=== PATIENT | male | born 1960 | race African-American/Black ===

== ENCOUNTER 2020-08-06 16:08 | Outpatient (REF) | payer OTHER, SELFPAY ==
[2020-08-06 17:37] LABS: Glucose Urine UA NEG (NEG); Leukocyte Esterase Urine NEG (NEG); Nitrite Urine NEG (NEG); PH 5.5 (5.0-8.0); Specific Gravity - Urine 1.015 (1.005-1.025); Urine Blood NEG (NEG); Urine Ketones NEG (NEG); Urine Protein NEG (NEG-TRACE)
[2020-08-06 17:41] LABS: Appearance Urine CLEAR; Color Urine YELLOW
[2020-08-06 17:45] LABS: Prostate Specific Antigen Scr 0.86 ng/mL (<0.05-4.0)
== END 2020-08-06 16:09 | disposition home or self-care (01) ==
LOC: HO.LAB 16:08
PROVIDERS: PCP Internal Medicine; Visit Provider Internal Medicine
DX: E78.5 Hyperlipidemia, unspecified (principal); R35.1 Nocturia
CPT/HCPCS: 81003; 84153

== ENCOUNTER 2021-01-21 17:10 | Outpatient (REF) | payer OTHER, SELFPAY ==
--- NOTE | ~2021-01-21 | XR_ITS ---
EXAMINATION: XR RIBS, RIGHT CLINICAL INFORMATION: Chest pain COMPARISON: None TECHNIQUE: Frontal view the chest and 3 oblique views of the right ribs were obtained. FINDINGS: Lungs are clear. No consolidation, pneumothorax, or pleural effusion. The cardiomediastinal silhouette and pulmonary vasculature are normal. Osseous structures are unremarkable. Ribs are intact. No displaced rib fractures are identified. XR/XR ribs RT min 3V w CXR1V IMPRESSION: Unremarkable examination.
== END 2021-01-21 17:11 | disposition home or self-care (01) ==
LOC: HO.HMGCX 17:10
PROVIDERS: PCP Internal Medicine; Visit Provider Nurse Practitioner Family
DX: R07.89 Other chest pain (principal)
CPT/HCPCS: 71101

== ENCOUNTER 2021-05-17 08:21 | Outpatient (REF) | payer OTHER, SELFPAY ==
[2021-05-17 09:31] LABS: MANUAL DIFF FLAG NO
[2021-05-17 09:52] LABS: Basophils Percent Auto 0.3 % (0-2); Eosinophils Absolute Auto 0.1 X10*3/uL (0.0-0.4); Eosinophils Percent Auto 2.4 % (0-4); Hematocrit 45.3 % (42-52); Imm Gran Abs Auto 0.01 X10*3/uL (0.00-0.03); Imm Gran Pct Auto 0.3 % (0.0-0.4); Lymphocytes Absolute Auto 1.8 X10*3/uL (1.2-4.9); Lymphocytes Percent Auto 47.9 % (20-40); Mean Corpuscular HGB Conc 33.1 g/dl (31.0-36.0); Mean Corpuscular Hemoglobin 29.4 pg (27.0-33.0); Mean Corpuscular Volume 88.6 fL (80-98); Mean Platelet Volume 12.5 fL (9.4-12.4); Monocytes Absolute Auto 0.4 X10*3/uL (0.1-1.2); Monocytes Percent Auto 10.2 % (2-11); Neutrophils Absolute Auto 1.5 X10*3/uL (2.0-8.3); Neutrophils Percent Auto 38.9 % (45-73); Platelet Count 133 X10*3/uL (160-400); Red Blood Count 5.11 X10*6/uL (4.60-5.80); Red Cell Distribution Width 13.9 % (11.0-16.0); White Blood Count 3.7 X10*3/uL (4.8-10.8)
[2021-05-17 10:15] LABS: Alanine Aminotransferase 28 U/L (0-40); Albumin Level 4.2 g/dL (3.5-5.0); Alkaline Phosphatase 58 U/L (39-117); Anion Gap 11 (12-20); Aspartate Amino Transferase 24 U/L (5-37); Bilirubin Total 0.6 mg/dL (0.0-1.0); Blood Urea Nitrogen 9 mg/dL (9-16); Calcium 9.6 mg/dL (8.4-10.2); Carbon Dioxide 28 mmol/L (22-29); Chloride 108 mmol/L (96-108); Cholesterol 194 mg/dL; Estimated Glomerular Filt Rate > 60; Glucose Fasting 97 mg/dL (60-99); HDL Cholesterol 37 mg/dL; LDL Cholesterol Calculated 109 mg/dl; Potassium 4.1 mmol/L (3.3-5.1); Sodium 143 mmol/L (135-145); Triglycerides 244 mg/dL
[2021-05-17 10:21] LABS: Thyroid Stimulating Hormone 1.26 uIU/mL (0.32-4.0)
== END 2021-05-17 08:22 | disposition home or self-care (01) ==
LOC: HO.LAB 08:21
PROVIDERS: PCP Internal Medicine; Visit Provider Internal Medicine
DX: Z00.00 Encounter for general adult medical examination without abnormal findings (principal); E03.9 Hypothyroidism, unspecified; E11.9 Type 2 diabetes mellitus without complications
CPT/HCPCS: 36415; 80053; 80061; 84443; 85025

== ENCOUNTER → 2021-06-24 13:24 | Outpatient (BNVA) | payer OTHER, SELFPAY | PROVIDERS: Referring Provider Internal Medicine; Visit Provider Nurse Practitioner Family ==

== ENCOUNTER 2021-08-06 08:46 | Day surgery (SDC) | payer OTHER, SELFPAY ==
[2021-07-29 10:26] VITALS: BMI 29.7
--- NOTE | 2021-08-05 10:20 | P.CONAN_ITS ---
Documented by User: Siena Maldonado NP 08/05/21 10:23 HPI - Anesthesia Eval Consult details Narrative: 61yo M for Colonoscopy PMFSH Active Problems Active Problems: All Active Problems (Updated 07/29/21 @ 10:26 by Rachel Reed RN) Nocturia (Acute) Chest wall pain (Acute) Physical exam (Acute) Back pain (Acute) Hypertension (Acute) Past Medical History Medical History (Updated 08/05/21 @ 13:15 by Guido Masterson MD) Back pain COVID-19 vaccine series completed Hypertension Family History Family History Father Prostate cancer Mother Diabetes Family/Other Hypertension Diabetes Son No problems noted. Daughter No problems noted. Sister No problems noted. Brother No problems noted. Surgical History Surgical History H/O colonoscopy History of hemorrhoidectomy Social History Social History Housing: House Are you a primary dog daycare provider to a significant other at home: No Do you presently have visiting nurse or other home services: No Alcohol intake: never Patient Tobacco Use Status: Former Tobacco user Quit Date: 1990 Tobacco use type: Cigarette e-Cigarette/Vaping Use: Never Used Second Hand Smoke Exposure: No Use of substances other than those prescribed or required for medical reasons: No Have you been hit, kicked, punched, or otherwise hurt by someone within the past year? If so, by whom?: No Are you DNR?: No Advance Directives: No Advance Directives Information Provided: Yes (informational brochure mailed) Advance Directives on File: No Recently lost weight without trying: No Eating poorly because of decreased appetite: No Nutrition Risks: No Nutritional Risk Poor oral hygiene: No (upper & lower partials) service: Yes Current occupational status: employed Cognitive needs: No Hearing needs: No Vision needs: No Meds Allergies Allergy/AdvReac Type Severity Reaction Status Date / Time No Known Allergies Allergy Verified 08/06/21 08:54 Home Medications Medication Instructions Recorded Confirmed Last Taken Type metronidazole 1 % topical gel 1 applic TOPICAL DAILY 07/04/20 08/05/21 Unknown History (Metrogel) famotidine 40 mg tablet 40 mg PO DAILY 08/05/20 08/05/21 Unknown History Exam Exam Date and Time: August 05, 2021 1020 Height,Weight and Vital Signs: Height 6 ft 1 in Weight 102.058 kg Pertinent Lab Results Pertinent Lab Results: Laboratory Tests 05/17/21 05/17/21 08:35 08:35 WBC 3.7 L Hgb 15.0 Hct 45.3 Plt Count 133 L Sodium 143 Potassium 4.1 Chloride 108 Carbon Dioxide 28 BUN 9 Creatinine 1.06 Assessment and Plan Assessment Anesthesia Assessment: Chart Reviewed Documented by User: Anabella Vasquez MD 08/06/21 08:56 PMFSH Past Medical History Medical History (Updated 08/05/21 @ 13:15 by Guido Masterson MD) Back pain COVID-19 vaccine series completed Hypertension Family History Family History Father Prostate cancer Mother Diabetes Family/Other Hypertension Diabetes Son No problems noted. Daughter No problems noted. Sister No problems noted. Brother No problems noted. Family history of problems with anesthesia: No Surgical History Surgical History H/O colonoscopy History of hemorrhoidectomy History of Problems with Anesthesia: No Social History Social History Housing: House Are you a primary dog daycare provider to a significant other at home: No Do you presently have visiting nurse or other home services: No Alcohol intake: never Patient Tobacco Use Status: Former Tobacco user Quit Date: 1990 Tobacco use type: Cigarette e-Cigarette/Vaping Use: Never Used Second Hand Smoke Exposure: No Use of substances other than those prescribed or required for medical reasons: No Have you been hit, kicked, punched, or otherwise hurt by someone within the past year? If so, by whom?: No Are you DNR?: No Advance Directives: No Advance Directives Information Provided: Yes (informational brochure mailed) Advance Directives on File: No Recently lost weight without trying: No Eating poorly because of decreased appetite: No Nutrition Risks: No Nutritional Risk Poor oral hygiene: No (upper & lower partials) service: Yes Current occupational status: employed Cognitive needs: No Hearing needs: No Vision needs: No Meds Allergies Allergy/AdvReac Type Severity Reaction Status Date / Time No Known Allergies Allergy Verified 08/06/21 08:54 Home Medications Medication Instructions Recorded Confirmed Last Taken Type metronidazole 1 % topical gel 1 applic TOPICAL DAILY 07/04/20 08/05/21 Unknown History (Metrogel) famotidine 40 mg tablet 40 mg PO DAILY 08/05/20 08/05/21 Unknown History Exam Airway Mallampati Class: II TM Dist: >3cm Neck ROM: Full Heart: rrr Lungs: cta Assessment and Plan Assessment Anesthesia Assessment: Anesthesia Plan Discussed and Chart Reviewed Final Anesthetic Review Family History of Problems with Anesthesia: No History of Problems with Anesthesia: No NPO: Yes ASA Class: II Final Preanesthetic Review: No Changes in Pt Med Stat, Meds/Allgs Chart Reviewed and Consent Obtained/Reviewed Patient Risk: Intermediate Procedure Risk: Intermediate Anesthetic Plan Anesthetic Plan: MAC: Disposition: Standard PACU
[2021-08-06 08:55] VITALS: BP 127/72; PULSE 82; RESP 16; TEMP 36.3; O2SAT 96
[2021-08-06] MEDS: Lactated Ringers 1,000 ML 100 ML IVCONT (09:12)
--- NOTE | 2021-08-06 09:13 | P.HPSUR_ITS ---
Pre-Procedural Eval Section A Date of Service: 08/06/21 Section B Chief Complaint: Screening Relevant Family History (Specify if Yes): No Relevant Social History: None (ex smoker ) Present Medications: see Short Stay Collaborative assessment Medical History: Significant History (Back pain COVID-19 vaccine series completed Hypertension) History of Previous Operations: Relevant previous surgery/procedure and date(s) (hemorrhoidectomy) Allergies: Allergies Allergy/AdvReac Type Severity Reaction Status Date / Time No Known Allergies Allergy Verified 08/06/21 08:54 Review of Systems Sugical H&P ROS: Negative: Constitution, Cardiovascular, Respiratory, Neuro logical, Psychiatric, Hem-Onc, Allergic/Immunologic, Gastrointestinal, Genitourinary, Musculoskeletal, Integumentary, Endocrine and Eyes/Ears/Nose/Throat Exam Surgical H&P Exam: Normal: HEENT, Normal: Heart, Normal: Lungs, Normal: Extremities, Normal: Abdomen, Normal: Skin and Normal: Neurological Plan Diagnosis/Plan: Unchanged I have reviewed the history and physical and performed a pertinent physical examination on my patient. No changes have occurred unless specified.
--- NOTE | 2021-08-06 09:16 | P.BOP_ITS ---
Brief Operative Note Date of Service: 08/06/21 Pre-op diagnosis: colon screening Post-op diagnosis: same Procedure: see op note Surgeon: Pita Cannon MD Anesthesia: MAC Was an Wind Field Manager used for this Procedure?: No Estimated blood loss (mL): 0 Condition: stable Disposition: PACU
--- NOTE | 2021-08-06 09:17 | W.PM.OPN ---
Operative Note Operative Note Date of Service: 08/06/21 Narrative: Operative Information Procedure Description: Colonoscopy COLONOSCOPY Instrument: Olympus variable stiffness adult scope 190L Colonoscopy Monitoring: Vital signs and clinical assessment, continuous EKG monitoring, Pulse oximetry, Carbon Dioxide monitoring and blood pressure monitoring were done throughout the procedure. Colon withdrawal time was 14 minutes. Procedure: The patient was placed in the left lateral decubitis position and pre-procedure medications were administered. After a digital rectal examination of the ano-rectum, the video colonoscope was inserted into the rectum and advanced through the colon to the cecum/TI. The colonoscope was slowly withdrawn in a retrograde panoramic fashion and the colon mucosa was carefully examined including a retroflexed view of the rectum. Findings and interventions are described below. Procedure Difficulty:moderate Findings: Terminal Ileum-unable to intubate deeply due to looping, superficially appeared normal Severe spain diverticulosis with tics of varying sizes thru out the colon, worse on the left Cecum:normal Ascending Colon: normal Transverse Colon -normal Descending Colon:normal Sigmoid Colon: normal Rectum: Retroflexion with moderate large internal hemorrhoids, grade II Anorectum - internal hemorrhoids seen at anal verge Colon preparation: Ellsworth Bowel Preparation Scale Right colon; 2 Transverse colon: 2 Left colon; 2 (0 = Unprepared colon segment with mucosa not seen due to solid stool that cannot be cleared. 1 = Portion of mucosa of the colon segment seen, but other areas of the colon segment not well seen due to staining, residual stool and/or opaque liquid. 2 = Minor amount of residual staining, small fragments of stool and/or opaque liquid, but mucosa of colon segment seen well. 3 = Entire mucosa of colon segment seen well with no residual staining, small fragments of stool or opaque liquid) Impression and Post Procedure Diagnosis: internal hemorrhoids diverticular disease Plan: High fiber diet leaflet Avoid straining at stool, epsom salts and sitz bath, anusol supps or cream Repeat Colonoscopy in 10 years or earlier if clinically indicated or any concerns Above findings were reviewed with the patient and relevant handouts were provided if indicated.
[2021-08-06 09:57] VITALS: BP 84/56; PULSE 72; RESP 16; TEMP 36.6; O2SAT 97
[2021-08-06 10:12] VITALS: BP 121/73; PULSE 69; RESP 17; TEMP 36.6; O2SAT 97
== END 2021-08-06 10:55 | disposition home or self-care (01) ==
PROVIDERS: PCP Internal Medicine; Visit Provider Internal Medicine Gastroenterology
PROC: 0DJD8ZZ Inspection of Lower Intestinal Tract, Via Natural or Artificial Opening Endoscopic (ICD-10-PCS; CPT 45378; principal; 2021-08-06 10:00)
DX: Z12.11 Encounter for screening for malignant neoplasm of colon (principal); K57.30 Diverticulosis of large intestine without perforation or abscess without bleeding; K64.1 Second degree hemorrhoids; I10 Essential (primary) hypertension; M54.9 Dorsalgia, unspecified; Z79.899 Other long term (current) drug therapy; Z87.891 Personal history of nicotine dependence
CPT/HCPCS: 45378

== ENCOUNTER 2022-03-31 11:22 | Outpatient (REF) | payer OTHER, SELFPAY ==
--- NOTE | ~2022-03-31 | XR_ITS ---
EXAMINATION: XR KNEE, RIGHT CLINICAL INFORMATION: Knee pain COMPARISON: 06/08/2016 TECHNIQUE: Two views of the right knee. FINDINGS: No fracture or subluxation. Mild medial compartment joint space narrowing. Mild narrowing at the patellofemoral compartment. Enthesophyte formation of the patella. Small marginal osteophytes at the medial and patellofemoral compartments. There is a small suprapatellar joint effusion. Small osseous excrescence at the proximal fibular metaphysis is unchanged from previous. XR/XR knee RT 2V IMPRESSION: Mild degenerative changes of the knee greatest at the medial and patellofemoral compartments. Small joint effusion.
== END 2022-03-31 11:23 | disposition home or self-care (01) ==
LOC: HO.XRAY 11:22
PROVIDERS: PCP Internal Medicine; Visit Provider Internal Medicine
DX: M25.561 Pain in right knee (principal)
CPT/HCPCS: 73560

== ENCOUNTER 2022-04-24 09:15 | Outpatient (REF) | payer OTHER, SELFPAY ==
--- NOTE | ~2022-04-24 | XR_ITS ---
EXAMINATION: XR KNEE-BILATERAL CLINICAL INFORMATION: Pain in unspecified knee. COMPARISON: Radiographs of the right knee done on 03/31/2022. TECHNIQUE: Upright frontal views of both knees and lateral and patellofemoral views of the right knee were obtained. FINDINGS: Left knee: The bony alignments are intact. Decreased joint space, subchondral sclerosis and osteophyte formations, consistent with mild femoral tibial osteoarthrosis is present. Right knee: The bony alignments are intact. The cortices are intact. Decreased joint space, subchondral sclerosis, mild osteophyte formation, consistent with mild tricompartmental osteoarthrosis is present. Enthesopathy at the insertional site of the quadriceps tendon to the superior pole of the patella. XR/XR knee standing BI IMPRESSION: 1. Frontal view only radiograph of the left knee shows mild osteoarthrosis at the femoral tibial joints. 2. 3 views of the right knee shows mild tricompartmental osteoarthrosis and enthesopathy at the insertional site of the quadriceps tendon to the superior pole of the patella.
--- NOTE | ~2022-04-24 | XR_ITS ---
EXAMINATION: XR KNEE-BILATERAL CLINICAL INFORMATION: Pain in unspecified knee. COMPARISON: Radiographs of the right knee done on 03/31/2022. TECHNIQUE: Upright frontal views of both knees and lateral and patellofemoral views of the right knee were obtained. FINDINGS: Left knee: The bony alignments are intact. Decreased joint space, subchondral sclerosis and osteophyte formations, consistent with mild femoral tibial osteoarthrosis is present. Right knee: The bony alignments are intact. The cortices are intact. Decreased joint space, subchondral sclerosis, mild osteophyte formation, consistent with mild tricompartmental osteoarthrosis is present. Enthesopathy at the insertional site of the quadriceps tendon to the superior pole of the patella. XR/XR knee RT 2V IMPRESSION: 1. Frontal view only radiograph of the left knee shows mild osteoarthrosis at the femoral tibial joints. 2. 3 views of the right knee shows mild tricompartmental osteoarthrosis and enthesopathy at the insertional site of the quadriceps tendon to the superior pole of the patella.
== END 2022-04-24 09:16 | disposition home or self-care (01) ==
LOC: HO.HOSX 09:15
PROVIDERS: Visit Provider Orthopaedic Surgery
DX: M17.11 Unilateral primary osteoarthritis, right knee (principal)
CPT/HCPCS: 20610; 73560; 73565; J1100

== ENCOUNTER 2022-05-09 07:47 | Outpatient (REF) | payer OTHER, SELFPAY ==
[2022-05-09 08:28] LABS: MANUAL DIFF FLAG NO
[2022-05-09 09:22] LABS: Basophils Percent Auto 0.7 % (0-2); Eosinophils Absolute Auto 0.1 X10*3/uL (0.0-0.4); Eosinophils Percent Auto 2.2 % (0-4); Hematocrit 45.2 % (42.0-52.0); Hemoglobin 14.4 g/dl (14.0-18.0); Imm Gran Abs Auto 0.01 X10*3/uL (0.00-0.03); Imm Gran Pct Auto 0.2 % (0.0-0.4); Lymphocytes Absolute Auto 1.8 X10*3/uL (1.2-4.9); Lymphocytes Percent Auto 42.7 % (20-40); Mean Corpuscular HGB Conc 31.9 g/dl (31.0-36.0); Mean Corpuscular Hemoglobin 27.9 pg (27.0-33.0); Mean Corpuscular Volume 87.4 fL (80.0-98.0); Mean Platelet Volume 13.6 fL (9.4-12.4); Monocytes Absolute Auto 0.5 X10*3/uL (0.1-1.2); Monocytes Percent Auto 11.4 % (2-11); Neutrophils Absolute Auto 1.8 x10*3/uL (2.0-8.3); Neutrophils Percent Auto 42.8 % (45-73); Platelet Count 100 X10*3/uL (160-400); Red Blood Count 5.17 X10*6/uL (4.60-5.80); Red Cell Distribution Width 14.5 % (11.0-16.0); White Blood Count 4.1 X10*3/uL (4.8-10.8)
[2022-05-09 10:02] LABS: Alanine Aminotransferase 30 U/L (0-40); Albumin Level 4.1 g/dL (3.5-5.0); Alkaline Phosphatase 58 U/L (39-117); Anion Gap 13 (12-20); Aspartate Amino Transferase 24 U/L (5-37); Blood Urea Nitrogen 12 mg/dL (9-16); Carbon Dioxide 25 mmol/L (22-29); Chloride 108 mmol/L (96-108); Cholesterol 207 mg/dL; Estimated Glomerular Filt Rate > 60; Glucose Fasting 93 mg/dL (60-99); HDL Cholesterol 41 mg/dL; LDL Cholesterol Calculated 128 mg/dl; Potassium 4.1 mmol/L (3.3-5.1); Sodium 142 mmol/L (135-145); Total Protein 7.1 g/dL (6.5-8.0); Triglycerides 191 mg/dL
[2022-05-09 11:00] LABS: Prostate Specific Antigen Scr 1.05 ng/mL (<0.05-4.0)
== END 2022-05-09 07:48 | disposition home or self-care (01) ==
LOC: HO.LAB 07:47
PROVIDERS: PCP Internal Medicine; Visit Provider Internal Medicine
DX: Z00.00 Encounter for general adult medical examination without abnormal findings (principal); E78.5 Hyperlipidemia, unspecified; I10 Essential (primary) hypertension; Z13.0 Encounter for screening for diseases of the blood and blood-forming organs and certain disorders involving the immune mechanism
CPT/HCPCS: 36415; 80053; 80061; 84153; 85025

== ENCOUNTER 2023-01-23 07:14 | Outpatient (REF) | payer OTHER, SELFPAY ==
[2023-01-23 07:28] LABS: MANUAL DIFF FLAG NO
[2023-01-23 08:04] LABS: Basophils Percent Auto 0.6 % (0-2); Eosinophils Absolute Auto 0.1 X10*3/uL (0.0-0.4); Eosinophils Percent Auto 2.3 % (0-4); Hematocrit 44.3 % (42.0-52.0); Hemoglobin 14.4 g/dl (14.0-18.0); Lymphocytes Absolute Auto 1.6 X10*3/uL (1.2-4.9); Lymphocytes Percent Auto 46.3 % (20-40); Mean Corpuscular HGB Conc 32.5 g/dl (31.0-36.0); Mean Corpuscular Hemoglobin 28.4 pg (27.0-33.0); Mean Corpuscular Volume 87.4 fL (80.0-98.0); Mean Platelet Volume 13.1 fL (9.4-12.4); Monocytes Absolute Auto 0.4 X10*3/uL (0.1-1.2); Monocytes Percent Auto 11.6 % (2-11); Neutrophils Absolute Auto 1.4 x10*3/uL (2.0-8.3); Neutrophils Percent Auto 39.2 % (45-73); Platelet Count 114 X10*3/uL (160-400); Red Blood Count 5.07 X10*6/uL (4.60-5.80); Red Cell Distribution Width 14.7 % (11.0-16.0); White Blood Count 3.5 X10*3/uL (4.8-10.8)
[2023-01-23 08:53] LABS: Alanine Aminotransferase 27 U/L (0-40); Albumin Level 4.2 g/dL (3.5-5.0); Alkaline Phosphatase 60 U/L (39-117); Anion Gap 10 (12-20); Aspartate Amino Transferase 27 U/L (5-37); Bilirubin Total 0.9 mg/dL (0.0-1.0); Blood Urea Nitrogen 11 mg/dL (9-16); Calcium 9.2 mg/dL (8.4-10.2); Carbon Dioxide 28 mmol/L (22-29); Chloride 109 mmol/L (96-108); Cholesterol 188 mg/dL; Estimated Glomerular Filt Rate > 60; Glucose Fasting 96 mg/dL (60-99); HDL Cholesterol 35 mg/dL; LDL Cholesterol Calculated 113 mg/dl; Potassium 4.2 mmol/L (3.3-5.1); Sodium 143 mmol/L (135-145); Triglycerides 201 mg/dL
== END 2023-01-23 07:15 | disposition home or self-care (01) ==
LOC: HO.LAB 07:14
PROVIDERS: PCP Internal Medicine; Visit Provider Internal Medicine
DX: E78.5 Hyperlipidemia, unspecified (principal); D64.9 Anemia, unspecified; N28.9 Disorder of kidney and ureter, unspecified
CPT/HCPCS: 36415; 80053; 80061; 85025

== ENCOUNTER 2023-04-27 15:49 | Outpatient (REF) | payer OTHER, SELFPAY ==
[2023-04-27 15:57] LABS: MANUAL DIFF FLAG NO
[2023-04-27 16:16] LABS: Basophils Percent Auto 0.6 % (0-2); Hematocrit 44.8 % (42.0-52.0); Hemoglobin 14.5 g/dl (14.0-18.0); Imm Gran Abs Auto 0.01 X10*3/uL (0.00-0.03); Imm Gran Pct Auto 0.2 % (0.0-0.4); Mean Corpuscular HGB Conc 32.4 g/dl (31.0-36.0); PLT CLUMP 1; SCAN SMEAR FLAG 1
[2023-04-27 16:19] LABS: Eosinophils Absolute Auto 0.1 X10*3/uL (0.0-0.4); Eosinophils Percent Auto 1.7 % (0-4); Lymphocytes Absolute Auto 2.5 X10*3/uL (1.2-4.9); Lymphocytes Percent Auto 47.8 % (20-40); Mean Corpuscular Hemoglobin 28.8 pg (27.0-33.0); Mean Corpuscular Volume 88.9 fL (80.0-98.0); Mean Platelet Volume 12.7 fL (9.4-12.4); Monocytes Absolute Auto 0.6 X10*3/uL (0.1-1.2); Monocytes Percent Auto 10.5 % (2-11); Neutrophils Absolute Auto 2.1 x10*3/uL (2.0-8.3); Neutrophils Percent Auto 39.2 % (45-73); Red Blood Count 5.04 X10*6/uL (4.60-5.80)
[2023-04-27 16:32] LABS: PLT ABN DIST 1; White Blood Count 5.3 X10*3/uL (4.8-10.8)
[2023-04-27 16:33] LABS: Platelet Count 130 X10*3/uL (160-400)
[2023-04-27 17:04] LABS: Alanine Aminotransferase 23 U/L (0-40); Albumin Level 4.3 g/dL (3.5-5.0); Alkaline Phosphatase 53 U/L (39-117); Anion Gap 12 (12-20); Aspartate Amino Transferase 33 U/L (5-37); Bilirubin Total 0.5 mg/dL (0.0-1.0); Blood Urea Nitrogen 12 mg/dL (9-16); Calcium 9.6 mg/dL (8.4-10.2); Carbon Dioxide 26 mmol/L (22-29); Chloride 105 mmol/L (96-108); Cholesterol 208 mg/dL (<200); Estimated Glomerular Filt Rate > 60; Glucose Fasting 93 mg/dL (60-99); HDL Cholesterol 36 mg/dL (>40); Sodium 139 mmol/L (135-145); Total Protein 7.5 g/dL (6.5-8.0); Triglycerides 434 mg/dL (<150)
[2023-04-27 17:19] LABS: Thyroid Stimulating Hormone 1.75 uIU/mL (0.32-4.0)
== END 2023-04-27 15:50 | disposition home or self-care (01) ==
LOC: HO.LAB 15:49
PROVIDERS: PCP Internal Medicine; Visit Provider Internal Medicine
DX: E03.9 Hypothyroidism, unspecified (principal); E78.5 Hyperlipidemia, unspecified; D64.9 Anemia, unspecified; N28.9 Disorder of kidney and ureter, unspecified
CPT/HCPCS: 36415; 80053; 80061; 84443; 85025

== ENCOUNTER 2023-05-07 13:35 | Outpatient (AMB) | payer OTHER, SELFPAY ==
[2023-05-07 13:38] VITALS: BP 124/78; PULSE 55; O2SAT 96; BMI 30.9
--- NOTE | 2023-05-07 13:38 | MHC.PC.OV ---
Vital Signs 05/07/23 13:38 Height 6 ft 1 in Weight 234 lb 2 oz BMI 30.9 BP 124/78 Blood Pressure Location Lt brachial Position Sitting Pulse 55 Pulse Source Pulse Oximeter Pulse Oximetry (%) 96 Oxygen Delivery Method Room Air Intake Visit Reasons: PE Bridge Builder Required: No Housekeeping/Laundry: Not Required per policy Accompanied by: Self / Same As Patient Allergies No Known Allergies Allergy (Verified 05/07/23 13:39) Medication List - Last Reconciled 05/11/23 by Guido Masterson MD famotidine 40 mg PO DAILY fluticasone propionate 50 mcg/actuation 1 spray intranasal DAILY lisinopril 10 mg PO DAILY metronidazole 1% (Metrogel) 1 ea topical DAILY oxycodone-acetaminophen 5-325 mg (Percocet) 1 tab PO Q8H PRN 28 days tadalafil (Cialis) 10 mg PO DAILY PRN Tobacco use date assessed: 12/18/22 Dental Screening Dental Screen Date: 05/07/23 Did you have a dental visit in the last 12 months?: Yes Did you have a dental problem in the last 6 months where you did not have access to dental care?: No Was dental information given to patient?: Patient has dentist HPI PE HPI Details HTN chronic back painand ED; doing well PFSH Medical History Back pain COVID-19 vaccine series completed Hypertension Surgical History H/O colonoscopy History of hemorrhoidectomy Family History Father Prostate cancer Mother Diabetes Family/Other Hypertension Diabetes Son No problems noted. Daughter No problems noted. Sister No problems noted. Brother No problems noted. 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 1. Little interest or pleasure in doing things: not at all 2. Feeling down, depressed, or hopeless: not at all 3. Trouble falling or staying asleep, or sleeping too much: not at all 4. Feeling tired or having little energy: not at all 5. Poor appetite or overeating: not at all 6. Feeling bad about yourself - or that you are a failure or have let yourself or your family down: not at all 7. Trouble concentrating on things, such as reading the newspaper or watching television: not at all 8. Moving or speaking so slowly that other people could have noticed. Or the opposite - being so fidgety or restless that you have been moving around a lot more than usual: not at all 9. Thoughts that you would be better off or of hurting yourself in some way: not at all Total score: 0 Depression Screening Interpretation: Negative 01282 - PHQ-9 Billing: Yes Source: Developed by Drs. Martín Jessica, Yolette Gomez, Anthony Diaz and colleagues, with an educational mikayla from [employer] (formerly [employer]). Thrive Questionnaire Date Thrive assessed: 12/18/22 AUDIT C Alcohol Use Questionnaire (AUDIT-C) 1. How often do you have a drink containing alcohol?: Never Total Score: 0 Score Reviewed/Action Taken: Yes KYRA-7 AMB Questionnaire KYRA-7 Date KYRA - 7 assessed: 12/18/22 Source: Developed by Drs. Martín Jessica, Yolette Gomez, Anthony Diaz and colleagues, with an educational mikayla from [employer] (formerly [employer]). Review of Systems Const Denies chills, Denies fatigue, Denies headache(s) and Denies weight loss Eyes Denies change in vision, Denies diplopia and Denies eye pain ENT Denies vertigo, Denies dizziness, Denies headache(s) and Denies nasal discharge Card Denies chest pain, Denies rapid heart rate and Denies dyspnea on exertion Resp Denies chest congestion, Denies cough, Denies pain with cough and Denies dyspnea on exertion GI Denies abdominal pain, Denies hematochezia and Denies change in bowel habits Musc Denies myalgias, Denies arthralgias and Denies joint swelling Skin/Breast Denies lesions and Denies unusual bruising Neuro Denies vertigo, Denies dizziness, Denies headache(s) and Denies focal weakness Endo Denies fatigue Physical exam (Primary Care) Vital Signs: Last Vital Signs Pulse 55 05/07/23 13:38 BP 124/78 05/07/23 13:38 Pulse Ox 96 05/07/23 13:38 Oxygen Delivery Method Room Air 05/07/23 13:38 BMI result Body Mass Index 30.9 Tobacco/Smoking Status: Tobacco use Status Tobacco use date assessed 12/18/22 05/07/23 13:43 Patient Tobacco Use Status Former Tobacco user 05/07/23 13:43 Tobacco use type Cigarette 05/07/23 13:43 e-Cigarette/Vaping Use Never Used 05/07/23 13:43 PHQ-9: PHQ-9 Score PHQ-9: Total score 0 05/07/23 13:43 Depression Screening Interpretation: Negative Thrive Assessment: Date of Thrive Assessment Date Thrive assessed 12/18/22 05/07/23 13:43 Const General: cooperative, healthy appearing and no acute distress Orientation/consciousness: oriented to person, oriented to place and oriented to time HENMT Head: Yes normal to inspection, Yes normocephalic and Yes atraumatic Mouth: Normal oral and palatal mucosa present and tongue normal Throat: Yes posterior oropharynx normal and Yes uvula midline Eyes General: appearance normal, both eyes and all related structures Neck Neck: Yes normal visual inspection, Yes full ROM and Yes no lymphadenopathy Thyroid: Thyroid normal Carotids: normal carotid upstroke Chest Chest palpation & inspection: normal inspection of the chest Resp Effort & Inspection: normal respiratory effort and able to speak in complete sentences Auscultation: clear to auscultation bilaterally Cardio Jugular venous distension: no JVD Palpation: normal PMI Rate: regular rate Rhythm: regular rhythm Heart sounds: S1 normal heart sound present and S2 normal heart sound present GI Inspection: Yes normal to inspection Palpation (GI): Soft to palpation and No hepatosplenomegaly present Auscultation: normal bowel sounds General: Yes no CVA tenderness Back/Spine/Pelvis Back: no CVA tenderness Skin General skin exam: no rashes or lesions noted Neuro General: oriented to person, oriented to place and oriented to time Extrem General: Yes normal to inspection and Yes full ROM Assessment and Plan Assessment & Plan (1) Physical exam: Code(s): Z00.00 - Encounter for general adult medical examination without abnormal findings Plan: labs (2) Back pain: Code(s): M54.9 - Dorsalgia, unspecified Plan: stable; same rx (3) Hypertension: Comment: stable; same rx Code(s): I10 - Essential (primary) hypertension (4) Erectile dysfunction: Code(s): N52.9 - Male erectile dysfunction, unspecified Plan: stable; same rx Coding Level of Care Code Est Pt Prev Care 40-64y(96254) Diagnoses Physical exam Z00.00 Back pain M54.9 Hypertension I10 Erectile dysfunction N52.9
== END 2023-05-07 14:04 | disposition home or self-care (01) ==
PROVIDERS: PCP Internal Medicine; Visit Provider Internal Medicine
DX: Z00.00 Encounter for general adult medical examination without abnormal findings (principal); M54.9 Dorsalgia, unspecified; I10 Essential (primary) hypertension; N52.9 Male erectile dysfunction, unspecified
CPT/HCPCS: 99396

== ENCOUNTER 2023-07-15 11:27 | Outpatient (AMB) | payer OTHER, SELFPAY ==
[2023-07-15 11:29] VITALS: BP 122/70; PULSE 47; O2SAT 97; BMI 30.9
--- NOTE | 2023-07-15 11:29 | MHC.PC.OV ---
Vital Signs 07/15/23 11:29 Height 6 ft 1 in Weight 234 lb BMI 30.9 BP 122/70 Blood Pressure Location Lt brachial Position Sitting Pulse 47 L Pulse Source Pulse Oximeter Pulse Oximetry (%) 97 Oxygen Delivery Method Room Air Intake Visit Reasons: Right elbow Swelling Hide Worker Required: No Broke Worker: Not Required per policy Accompanied by: Self / Same As Patient Allergies No Known Allergies Allergy (Verified 07/15/23 11:29) Medication List - Last Reconciled 07/15/23 by Guido Masterson MD famotidine 40 mg PO DAILY fluticasone propionate 50 mcg/actuation 1 spray intranasal DAILY lisinopril 10 mg PO DAILY metronidazole 1% (Metrogel) 1 ea topical DAILY tadalafil (Cialis) 10 mg PO DAILY PRN Tobacco use date assessed: 12/18/22 Dental Screening Dental Screen Date: 07/15/23 Did you have a dental visit in the last 12 months?: No Did you have a dental problem in the last 6 months where you did not have access to dental care?: No Was dental information given to patient?: Patient has dentist HPI Right elbow Swelling HPI Details successfully tapered off oxycodone; has not taken any for over a month. Pain manageable with NSAIDS PFSH Medical History COVID-19 vaccine series completed Back pain Hypertension Surgical History H/O colonoscopy History of hemorrhoidectomy Family History Father Prostate cancer Mother Diabetes Family/Other Hypertension Diabetes Son No problems noted. Daughter No problems noted. Sister No problems noted. Brother No problems noted. 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 1. Little interest or pleasure in doing things: not at all 2. Feeling down, depressed, or hopeless: not at all 3. Trouble falling or staying asleep, or sleeping too much: not at all 4. Feeling tired or having little energy: not at all 5. Poor appetite or overeating: not at all 6. Feeling bad about yourself - or that you are a failure or have let yourself or your family down: not at all 7. Trouble concentrating on things, such as reading the newspaper or watching television: not at all 8. Moving or speaking so slowly that other people could have noticed. Or the opposite - being so fidgety or restless that you have been moving around a lot more than usual: not at all 9. Thoughts that you would be better off or of hurting yourself in some way: not at all Total score: 0 Depression Screening Interpretation: Negative Depression Screening Done: Yes 28775 - PHQ-9 Billing: Yes Source: Developed by Drs. Martín Jessica, Yolette Gomez, Anthony Diaz and colleagues, with an educational mikayla from [employer]. Thrive Questionnaire Date Thrive assessed: 12/18/22 AUDIT C Alcohol Use Questionnaire (AUDIT-C) 1. How often do you have a drink containing alcohol?: Never Total Score: 0 Score Reviewed/Action Taken: Yes KYRA-7 AMB Questionnaire KYRA-7 Date KYRA - 7 assessed: 12/18/22 Source: Developed by Drs. Martín Jessica, Yolette Gomez, Anthony Diaz and colleagues, with an educational mikayla from [employer]. Review of Systems Const Denies chills, Denies headache(s) and Denies weight loss ENT Denies headache(s) Card Denies chest pain, Denies syncope, Denies irregular heart rhythm and Denies dyspnea Resp Denies chest congestion, Denies cough and Denies dyspnea GI Denies abdominal pain, Denies change in stool character, Denies nausea and Denies vomiting Musc Denies deformity and Denies joint swelling Neuro Denies syncope and Denies headache(s) Physical exam (Primary Care) Vital Signs: Last Vital Signs Pulse 47 L 07/15/23 11:29 BP 122/70 07/15/23 11:29 Pulse Ox 97 07/15/23 11:29 Oxygen Delivery Method Room Air 07/15/23 11:29 BMI result Body Mass Index 30.9 Tobacco/Smoking Status: Tobacco use Status Tobacco use date assessed 12/18/22 07/15/23 11:35 Patient Tobacco Use Status Former Tobacco user 07/15/23 11:35 Tobacco use type Cigarette 07/15/23 11:35 e-Cigarette/Vaping Use Never Used 07/15/23 11:35 PHQ-9: PHQ-9 Score PHQ-9: Total score 0 07/15/23 11:35 Depression Screening Interpretation: Negative Thrive Assessment: Date of Thrive Assessment Date Thrive assessed 12/18/22 07/15/23 11:35 Const General: cooperative, comfortable, no acute distress and alert Neck Neck: Yes no lymphadenopathy Thyroid: Thyroid normal Resp Effort & Inspection: normal respiratory effort Auscultation: clear to auscultation bilaterally Percussion: percussion normal Cardio Jugular venous distension: no JVD Palpation: normal PMI Rate: regular rate Rhythm: regular rhythm Heart sounds: S1 normal heart sound present and S2 normal heart sound present GI Inspection: Yes normal to inspection Palpation (GI): No hepatosplenomegaly present Skin General skin exam: no rashes or lesions noted Extrem General: Yes no clubbing, cyanosis or edema Assessment and Plan Assessment & Plan (1) Low back pain: Code(s): M54.50 - Low back pain, unspecified Plan: cont NSAIDS Orders: Orders ECG 12 lead EKG Today I49.9 - Cardiac arrhythmia, unspecified Coding Level of Care Code Est Pt Level 3 (27070) Diagnoses Low back pain M54.50
== END 2023-07-15 12:47 | disposition home or self-care (01) ==
PROVIDERS: PCP Internal Medicine; Visit Provider Internal Medicine
DX: M54.50 Low back pain, unspecified (principal)
CPT/HCPCS: 99213

== ENCOUNTER → 2023-07-15 11:48 | Outpatient (REF) | payer OTHER, SELFPAY ==
--- NOTE | 2023-07-15 11:53 | ECG_ITS ---
Test Reason : arrhythmia Blood Pressure : / mmHG Vent. Rate : 094 BPM Atrial Rate : 101 BPM P-R Int : 166 ms QRS Dur : 102 ms QT Int : 374 ms P-R-T Axes : 070 -14 055 degrees QTc Int : 467 ms Normal sinus rhythm with frequent Premature ventricular complexes Abnormal ECG No previous ECGs available Referred By: Guido Masterson Electronically Signed By:AMANDEEP RANGEL MD
== END ==
LOC: HO.CARD 11:48
PROVIDERS: PCP Internal Medicine; Visit Provider Internal Medicine
DX: I49.9 Cardiac arrhythmia, unspecified (principal)
CPT/HCPCS: 93005

== ENCOUNTER 2023-08-10 12:37 | Outpatient (AMB) | payer OTHER, SELFPAY ==
[2023-08-10 12:46] VITALS: BP 120/60; PULSE 61; BMI 32.3
--- NOTE | 2023-08-10 12:46 | MHC.OFFVIS ---
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 He states that he also needs DOT clearance. A recent EKG had shown PVCs and that led to the referral. Patient himself denies any history of coronary disease myocardial infarction or cardiomyopathy or in fact any other cardiac issues. He states he gets some random chest pains but not exertional. With activity he does not really feel anything wrong. Otherwise, no major comorbidities. 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 Denies any smoking or alcohol excess. [facility] Medical History COVID-19 vaccine series completed Back pain Hypertension Surgical History H/O colonoscopy History of hemorrhoidectomy Family History Father Prostate cancer Mother Diabetes Family/Other Hypertension Diabetes Son No problems noted. Daughter No problems noted. Sister No problems noted. Brother No problems noted. Social History Housing: House Are you a primary director of health care marketing to a significant other at home: No Do you presently have visiting nurse or other home services: No Alcohol intake: never Patient Tobacco Use Status: Former Tobacco user Quit Date: 1990 Tobacco use type: Cigarette e-Cigarette/Vaping Use: Never Used Second Hand Smoke Exposure: No service: Yes Current occupational status: employed Current occupation: [employer] Cognitive needs: No Hearing needs: No Vision needs: No Review of Systems Const Denies chills, Denies daytime sleepiness, Denies fatigue, Denies fever(s), Denies frequent falls, Denies night sweats, Denies snoring, Denies weakness, Denies weight gain and Denies weight loss Eyes Denies loss of vision ENT Denies dizziness and Denies hearing loss Card Denies chest pain with activity, Denies syncope, Denies edema, Denies claudication, Denies leg edema, Denies lightheadedness, Denies palpitations, Denies dyspnea, Denies dyspnea on exertion and Denies orthopnea Resp Denies cough, Denies excessive phlegm production, Denies dyspnea, Denies dyspnea on exertion, Denies snoring and Denies wheezing GI Denies abdominal pain, Denies hematochezia, Denies change in bowel habits, Denies change in stool character, Denies heartburn, Denies nausea and Denies vomiting Denies hematuria, Denies dysuria and Denies urinary frequency Musc Denies arthralgias, Denies muscle weakness, Denies numbness and Denies tingling Skin/Breast Denies nail changes and Denies rash Neuro Denies Abnormal speech present, Denies dizziness, Denies syncope, Denies frequent falls, Denies loss of vision, Denies memory loss, Denies numbness, Denies tingling and Denies weakness Psych Denies depression and Denies memory loss Endo Denies fatigue and Denies palpitations Aller/Immun Denies wheezing Physical Exam Vital Signs: Last Vital Signs Pulse 61 08/10/23 12:46 BP 120/60 08/10/23 12:46 BMI result Body Mass Index 32.3 Const General: comfortable and no acute distress Orientation/consciousness: patient oriented x3 HEENT Other: Unremarkable Head: Yes normal to inspection Neck Neck: Yes normal visual inspection Chest Chest palpation & inspection: normal inspection of the chest Resp Auscultation: clear to auscultation bilaterally Cardio Palpation: normal PMI Heart sounds: S1 normal heart sound present, S2 normal heart sound present, no gallops, no murmurs and no rubs GI Palpation (GI): Soft to palpation Back/Spine/Pelvis Other: unremarkable Skin General skin exam: no rashes or lesions noted Neuro General: patient oriented x3 Speech: No Abnormal speech present Extrem General: Yes normal to inspection Psych Mental Status: mental status grossly normal Assessment & Plan Assessment & Plan (1) PVC (premature ventricular contraction): Code(s): I49.3 - Ventricular premature depolarization Plan EKG with sinus rhythm at 94/Min; frequent PVCs. Variable morphology. Normal MD and corrected QT. Etiology for the PVCs not very clear. Showed him the PVCs on the EKG to explained. He understands. He needs comprehensive workup including echocardiogram, stress test as well as Holter. May also need a sleep study in the future. Plan discussed with patient and significant other and they understand and agree. Orders: Orders CA echo transthoracic complete Today I25.10 - Atherosclerotic heart disease of [place] coronary artery without angina pectoris, I49.3 - Ventricular premature depolarization ECG 3 day holter monitor Today I49.3 - Ventricular premature depolarization, R00.2 - Palpitations CA stress test Today I49.3 - Ventricular premature depolarization, R07.2 - Precordial pain NM cardiolite stress test Today I49.3 - Ventricular premature depolarization, R07.2 - Precordial pain Coding Level of Care Code New Pt Level 4 (35304) Diagnoses PVC (premature ventricular contraction) I49.3
== END 2023-08-10 13:19 | disposition home or self-care (01) ==
PROVIDERS: PCP Internal Medicine; Visit Provider Internal Medicine
DX: I49.3 Ventricular premature depolarization (principal)
CPT/HCPCS: 99204

== ENCOUNTER → 2023-08-10 12:37 | Outpatient (BNVA) | payer OTHER, SELFPAY | PROVIDERS: PCP Internal Medicine; Visit Provider Internal Medicine ==

== ENCOUNTER → 2023-08-26 13:36 | Outpatient (REF) | payer OTHER, SELFPAY ==
--- NOTE | 2023-08-26 13:40 | HM_ITS ---
* Total monitoring time 2 days 16 hours. * Underlying rhythm is sinus with an average rate of 79/Min. Range 48 to 130/Min. * Frequent ventricular ectopy with a burden of 16%. Several couplets, few triplets. Evidence of bigeminy/trigeminy. 509 runs noted. Longest 7 beats. * Rare supraventricular ectopy. * No patient markers or events in diary. MTDD
--- NOTE | 2023-08-26 13:40 | CA_ITS ---
Transthoracic Echocardiogram Patient (Last, First, Middle): Eric Martinez, Gender: Male Date of : 1960 Age: 63 Procedure Date: 08/26/2023 Procedure Type: Transthoracic Echocardiogram Location: OP Height: 180.34 cm Weight: 104.33 kg BSA: 2.24 m2 Heart Rate: bpm BP: 120 / 74 mmHg Choirmaster: JENNIE Referring MD: Chilo Martinez MD Judge Clerk: Drew Garcia MD Symptoms: I25.10 - Atherosclerotic heart disease of [place] coronary artery without... Study Quality: Adequate ECG Rhythm: Sinus Conclusions: - 1. Moderately dilated left ventricle with moderately reduced LV EF of 35-40% with impaired relaxation filling pattern next 2. Mildly dilated left atrium 3. Trivial aortic regurgitation 4. Mildly dilated ascending aorta at 3.7 cm 5. No gross pericardial effusion Findings Left Ventricle Moderately increased left ventricular cavity size. There is normal left ventricular wall thickness. The left ventricular systolic function is moderately decreased. The visually estimated ejection fraction is between 35 40%. There is moderate global hypokinesis. Spectral Doppler is indicative of an impaired relaxation filling pattern. E/E prime ratio is between 8 and 15 consistent with indeterminate filling pressures. Peak GLS is -13.0%, moderately reduced. Right Ventricle Normal right ventricular cavity size and systolic function. Atria The left atrium is mildly dilated. There is no evidence of interatrial shunt. The right atrium is normal in size. Aortic Valve Normal aortic valve structure and function. There is no aortic valve stenosis. There is trace (trivial) aortic valve regurgitation. Mitral Valve There is mild anterior and posterior mitral leaflet thickening. There is trace mitral valve regurgitation. There is no mitral valve stenosis. Pulmonic Valve The pulmonic valve is likely normal. Tricuspid Valve Likely normal tricuspid valve structure and function. Tricuspid regurgitation envelope is inadequate for calculation of right ventricular systolic pressure. Normal right atrial pressure. Great Vessels The pulmonary artery was not well visualized. There is mild dilatation of the ascending aorta measuring 3.70 cm. Venous The inferior vena cava is normal in size and collapses greater than 50% with inspiration. Pericardium/Pleural There is no evidence of pericardial effusion. Prior Study Comparison No prior study available for comparison. Measurements 2D Linear Measurements IVSd: 1.09 0.6-0.9/0.6-1.0 cm LVIDd: 6.18 3.9-5.3/4.2-5.9 cm LVIDd Index: 2.76 2.4-3.2/2.2-3.1 cm/m2 LVIDs: 5.56 2.0-3.6 cm LVPWd: 0.81 0.7-1.1 cm LA Diam: 4.10 2.7-3.8/3.0-4.0 cm LAIDs Index: 1.83 1.5-2.3 cm/m2 LV Mass: 303.55 67-162/88-224 g LV Mass Index: 135.51 43-95/49-115 g/m2 LVOT Diam: 2.50 3.0+(-)1.3 cm 2D Systolic Function EF 4C: 35.20 >55% EF 2C: 42.80 >55% EF BiP: 39.00 >55% Mitral Valve MV Pk E: 0.57 MV PK A: 0.71 MV Decel Time: 248.00 E/A: 0.80 E'Lateral: 5.87 E'Medial: 5.33 E/E' Med: 10.60 E/E' Lat: 9.60 PHT: 73.00 MVA PHT: 3.01 Decel [place]: 2.28 Aortic Valve AoV Pk Twan: 1.16 AoV Mn Twan: 0.84 AoV VTI: 0.24 AoV Pk Grad: 5.00 Aov Mn Grad: 3.00 ANA CRISTINA Cont.VTI: 3.67 LVOT LVOT Pk Twan: 0.91 LVOT Mn Twan: 0.62 LVOT VTI: 0.18 LVOT Pk Grad: 3.00 LVOT Mn Grad: 2.00 LVOT Diam: 2.50 LVOT Area: 4.91 Diastolic Function MV Pk E: 0.57 MV Pk A: 0.71 E/A: 0.80 E'Medial: 5.33 E/E' Med: 10.60 E' Laterial: 5.87 E/E' Lat: 9.60 Right Ventricle TAPSE (mm): 19.90 TVS' Twan: 13.10 Tricuspid Valve RA Press: 3.00 Great Vessels Aorta Sinus of Valsalva: 4.39 2.0-3.[address] [place]: 3.82 1.7-3.4 cm Ao Asc: 3.70 2.1-3.4 cm Updated in Other Vendor System with Status of Final Drew Garcia MD electronically signed on 08/26/2023 3:58:24 PM with status of Final
== END ==
LOC: HO.CARD 13:36
PROVIDERS: PCP Internal Medicine; Visit Provider Internal Medicine
DX: R00.2 Palpitations (principal); I25.10 Atherosclerotic heart disease of native coronary artery without angina pectoris; I49.3 Ventricular premature depolarization
CPT/HCPCS: 93242; 93306; 93356

== ENCOUNTER → 2023-08-26 13:40 | Outpatient (BNV) | payer OTHER, SELFPAY | PROVIDERS: PCP Internal Medicine; Visit Provider Internal Medicine Cardiovascular Disease | DX: I47.20 Ventricular tachycardia, unspecified (principal) | CPT/HCPCS: 93244; 93306 ==

== ENCOUNTER 2023-09-15 15:49 | Outpatient (REF) | payer OTHER, SELFPAY ==
[2023-09-15 16:17] LABS: Hematocrit 43.1 % (42.0-52.0); Hemoglobin 14.2 g/dl (14.0-18.0); Mean Corpuscular HGB Conc 32.9 g/dl (31.0-36.0); Mean Corpuscular Hemoglobin 28.9 pg (27.0-33.0); Mean Corpuscular Volume 87.8 fL (80.0-98.0); Mean Platelet Volume 12.2 fL (9.4-12.4); Platelet Count 114 X10*3/uL (160-400); Red Blood Count 4.91 X10*6/uL (4.60-5.80); Red Cell Distribution Width 14.6 % (11.0-16.0); White Blood Count 4.2 X10*3/uL (4.8-10.8)
[2023-09-15 16:40] LABS: B Type Natriuretic Peptide 134 pg/mL (<100)
[2023-09-15 17:26] LABS: Anion Gap 14 (12-20); Blood Urea Nitrogen 12 mg/dL (9-16); Calcium 9.2 mg/dL (8.4-10.2); Carbon Dioxide 25 mmol/L (22-29); Chloride 107 mmol/L (96-108); Estimated Glomerular Filt Rate > 60; Glucose Random 89 mg/dL (60-115); Potassium 3.9 mmol/L (3.3-5.1); Sodium 142 mmol/L (135-145)
== END 2023-09-15 15:50 | disposition home or self-care (01) ==
LOC: HO.LAB 15:49
PROVIDERS: PCP Internal Medicine; Visit Provider Internal Medicine
DX: I49.3 Ventricular premature depolarization (principal); I25.10 Atherosclerotic heart disease of native coronary artery without angina pectoris
CPT/HCPCS: 36415; 80048; 83880; 85027; 85610

== ENCOUNTER 2023-09-28 15:22 | Outpatient (AMB) | payer OTHER, SELFPAY ==
[2023-09-28 15:40] VITALS: BP 120/62; PULSE 77; BMI 32.2
--- NOTE | 2023-09-28 15:40 | A.OFFVIS_ITS ---
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 Investigations Manager: Investigations Manager Present Allergies No Known Allergies Allergy (Verified 09/28/23 15:42) Medication List - Last Reconciled 09/28/23 by Alda Coon, DIVISION TRAFFIC SUPERINTENDENT-C famotidine 40 mg PO DAILY fluticasone propionate 50 mcg/actuation 1 spray intranasal DAILY lisinopril 10 mg PO DAILY metronidazole 1% (Metrogel) 1 ea topical DAILY tadalafil (Cialis) 10 mg PO DAILY PRN HPI Follow up post cardiac HPI Details Eric is a 63-year-old male with past medical history of obesity, hypertension, PVCs noted on EKG who recently underwent an Holter monitor, echocardiogram followed by cardiac catheterization and he now presents for follow-up. Today he reports he does have shortness of breath with exertional activities such as stair climbing or walking up inclines. Does not have shortness of breath at rest, PND, orthopnea or edema. He has no chest discomfort at rest or with activity. No heart palpitations, lightheadedness, presyncope, syncope. He is taking his meds as directed but reports a cough with his lisinopril. 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 is present. [facility] Medical History COVID-19 vaccine series completed Back pain Hypertension Surgical History H/O colonoscopy History of hemorrhoidectomy Family History Father Prostate cancer Mother Diabetes Family/Other Hypertension Diabetes Son No problems noted. Daughter No problems noted. Sister No problems noted. Brother No problems noted. 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 Cognitive needs: No Hearing needs: No Vision needs: No Review of Systems Const All systems reviewed & are unremarkable except as noted in HPI and below ENT Denies dizziness Card Denies chest pain, Denies chest pain at rest, Denies chest pain with activity, Denies rapid heart rate, Denies pedal edema, Denies edema, Denies leg edema, Denies lightheadedness, Denies palpitations, Denies dyspnea, Reports dyspnea on exertion and Denies orthopnea Resp Denies cough, Denies dyspnea and Reports dyspnea on exertion GI Denies hematochezia and Denies change in stool character Musc Denies abnormal gait, Denies limited range of motion, Denies muscle cramps, Denies muscle weakness, Denies numbness, Denies radiating pain into limb, Denies stiffness and Denies tingling Neuro Denies abnormal gait, Denies dizziness, Denies numbness and Denies tingling Endo Denies palpitations Physical Exam Vital Signs: Last Vital Signs Pulse 77 09/28/23 15:40 BP 120/62 09/28/23 15:40 BMI result Body Mass Index 32.2 Const General: cooperative, healthy appearing, comfortable and no acute distress Orientation/consciousness: patient oriented x3 Neck Neck: Yes normal visual inspection and Yes no JVD Resp Effort & Inspection: normal respiratory effort Auscultation: clear to auscultation bilaterally, no crackles, no rales, no rhonchi and no wheezes Cardio Jugular venous distension: no JVD Rate: regular rate Rhythm: regular rhythm Heart sounds: S1 normal heart sound present, S2 normal heart sound present, no murmurs and no rubs Neuro General: patient oriented x3 Extrem General: Yes normal to inspection and No no pedal edema Psych Appearance: grossly normal Mental Status: mental status grossly normal Speech and movement: Normal speech and movement present Assessment & Plan Assessment & Plan (1) Cardiomyopathy: Code(s): I42.9 - Cardiomyopathy, unspecified Plan: New finding of cardiomyopathy. Echocardiogram done 08/26/2023 showing EF 35- 40%, impaired relaxation, moderately dilated left atrium. He then underwent cardiac catheterization on 09/16/2023 showing normal coronary arteries. Right radial catheterization site is feeling good. He does have shortness of breath with activity. NYHA class 2. He is no clinical signs of heart failure on examination today. Holter monitor was done on 08/26/2023 for 2 days and 16 hours showing sinus rhythm with average heart rate 79, heart rate range 48 to 130, frequent PVCs, 16% of the time, frequent couplets and triplets, one 7 beat NSVT. His nonischemic cardiomyopathy could be related to frequent PVCs. Patient also reports hypersomnia, snoring, gasping. He may have untreated sleep apnea. Will order a sleep study for further evaluation. He denies any alcohol use. He is on lisinopril and reports a dry cough. Will change lisinopril over to valsartan 40 mg b.i.d.. Will add carvedilol 3.125 mg b.i.d.. Blood pressure today 120/62. Will have him back in the office in 2 weeks for blood pressure check and further med titration if able. Labs done on 09/15/2023 showed potassium 3.9, creatinine 0.92. He is not requiring diuretics at this time. Will plan for a limited echocardiogram 3 months after start of medical management to reassess EF. Cardiology follow-up in 3 months, sooner if needed (2) S/P cardiac catheterization: Comment: 09/16/2023 normal coronary arteries Code(s): Z98.890 - Other specified postprocedural states Plan: Right radial catheterization site healing well (3) PVC (premature ventricular contraction): Code(s): I49.3 - Ventricular premature depolarization Plan: Frequent PVCs noted on Holter monitor. Will be starting carvedilol as part of neurohormonal modulation and in hopes that this reduces his PVC burden. (4) Hypertension: Comment: stable; same rx Code(s): I10 - Essential (primary) hypertension Plan: Blood pressure goal less than 130/85. Currently in normal range. Medication changes as stated above (5) Hypersomnia: Code(s): G47.10 - Hypersomnia, unspecified Plan: Report of hypersomnia, snoring, gasping. Will order a home sleep study for further evaluation. Untreated sleep apnea can contribute to his cardiomyopathy. Plan Time spent on chart review, documentation, interview and assessment Orders: Orders RT home sleep study Today G47.10 - Hypersomnia, unspecified CA echo limited 12/22/23 I42.9 - Cardiomyopathy, unspecified Basic Metabolic Panel Today I42.9 - Cardiomyopathy, unspecified Medications: New carvedilol must administer with a meal/food 3.125 mg PO BID 60 tabs 5RF valsartan Replaces lisinopril 40 mg PO BID 60 tabs 3RF Discontinued lisinopril Discontinued Reason: Doctor's Order 10 mg PO DAILY 90 tabs 8RF Coding Level of Care Code Est Pt Level 4 (20737) Diagnoses Cardiomyopathy I42.9 S/P cardiac catheterization Z98.890 PVC (premature ventricular contraction) I49.3 Hypertension I10 Hypersomnia G47.10
== END 2023-09-28 16:23 | disposition home or self-care (01) ==
PROVIDERS: PCP Internal Medicine; Visit Provider Nurse Practitioner Family
DX: I42.9 Cardiomyopathy, unspecified (principal); Z98.890 Other specified postprocedural states; I49.3 Ventricular premature depolarization; I10 Essential (primary) hypertension; G47.10 Hypersomnia, unspecified
CPT/HCPCS: 99214

== ENCOUNTER → 2023-09-28 15:22 | Outpatient (BNVA) | payer OTHER, SELFPAY | PROVIDERS: PCP Internal Medicine; Visit Provider Nurse Practitioner Family ==

== ENCOUNTER → 2023-10-07 15:15 | Outpatient (BNVA) | payer SELFPAY | PROVIDERS: PCP Internal Medicine; Visit Provider Physician Assistant | DX: Z02.79 Encounter for issue of other medical certificate (principal) ==

== ENCOUNTER → 2023-10-12 15:56 | Outpatient (BNVA) | payer OTHER, SELFPAY | PROVIDERS: PCP Internal Medicine; Visit Provider Nurse Practitioner Family ==

== ENCOUNTER → 2023-10-15 15:46 | Outpatient (BNVA) | payer OTHER, SELFPAY | PROVIDERS: PCP Internal Medicine; Visit Provider Nurse Practitioner Family ==

== ENCOUNTER → 2023-11-04 15:50 | Outpatient (REF) | payer OTHER, SELFPAY | LOC: HO.SL 15:50 | PROVIDERS: PCP Internal Medicine; Visit Provider Nurse Practitioner Family | DX: G47.33 Obstructive sleep apnea (adult) (pediatric) (principal); G47.10 Hypersomnia, unspecified | CPT/HCPCS: 95806 ==

== ENCOUNTER → 2023-11-04 15:58 | Outpatient (BNV) | payer OTHER, SELFPAY | PROVIDERS: PCP Internal Medicine; Visit Provider Internal Medicine | DX: G47.33 Obstructive sleep apnea (adult) (pediatric) (principal) | CPT/HCPCS: 95806 ==

== ENCOUNTER 2023-11-30 15:00 | Outpatient (AMB) | payer OTHER, SELFPAY ==
--- NOTE | 2023-11-29 21:12 | MHC.OFFVIS ---
Intake Vital Signs 11/30/23 15:07 Height 6 ft 1 in Weight 248 lb BMI 32.7 BP 122/70 Blood Pressure Location Rt brachial Position Sitting Pulse 64 Pulse Source Pulse Oximeter Pulse Oximetry (%) 100 Oxygen Delivery Method Room Air Intake Visit Reasons: Sleep apnea Internal Corrosion Specialist Required: No Char Filter Tank Tender: Char Filter Tank Tender offered & declined Accompanied by: Self / Same As Patient Allergies No Known Allergies Allergy (Verified 11/30/23 15:11) Medication List - Last Reconciled 11/30/23 by Lurdes Buck LPN carvedilol 3.125 mg PO BID famotidine 40 mg PO DAILY fluticasone propionate 50 mcg/actuation 1 spray intranasal DAILY metronidazole 1% (Metrogel) 1 ea topical DAILY tadalafil (Cialis) 10 mg PO DAILY PRN valsartan 40 mg PO BID HPI Sleep apnea HPI Details Eric is a pleasant 63 year old male, former smoker, with underlying HTN. He was referred by cardiology for pulmonary evaluation after recent echo revealing cardiomyopathy. Echo 2022 revealed EF 35-40%, impaired relaxation and moderately dilated left atrium with cardiac cath unremarkable. He does report dyspnea on exertion and will have a repeat echo in 3 months. He recently had a home sleep study for symptoms of hypersomnia and loud snoring. Results revealed mild obstructive sleep apnea with AHI of 11 and patient presents to discuss CPAP therapy. He reports mother with BERENICE otherwise denies, pertinent family history. 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 [facility] Medical History COVID-19 vaccine series completed Back pain Hypertension Surgical History H/O colonoscopy History of hemorrhoidectomy Family History Father Prostate cancer Mother Diabetes Family/Other Hypertension Diabetes Son No problems noted. Daughter No problems noted. Sister No problems noted. Brother No problems noted. 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 Cognitive needs: No Hearing needs: No Vision needs: No Review of Systems Const Denies chills, Denies excessive sweating, Denies fever(s), Denies headache(s) and Denies night sweats Eyes Denies dry eyes, Denies irritation and Denies itchy eyes ENT Reports Normal hearing present, Denies headache(s), Denies nasal congestion, Denies nasal discharge, Denies post nasal drip and Denies sore throat Card Denies chest pain, Denies chest pain at rest, Denies chest pain with activity, Denies claudication, Denies leg edema, Denies orthopnea and Denies paroxysmal nocturnal dyspnea Resp Denies chest congestion, Denies cough, Denies excessive phlegm production, Denies pain on inspiration, Denies pain with cough, Denies stridor and Denies wheezing Musc Denies myalgias Neuro Reports Normal hearing present and Denies headache(s) Endo Denies excessive sweating Mekhi/Lymph Denies lymphadenopathy Aller/Immun Denies itchy eyes, Denies seasonal rhinorrhea and Denies wheezing Physical Exam Vital Signs: Last Vital Signs Pulse 64 11/30/23 15:07 BP 122/70 11/30/23 15:07 Pulse Ox 100 11/30/23 15:07 Oxygen Delivery Method Room Air 11/30/23 15:07 BMI result Body Mass Index 32.7 Const General: cooperative, healthy appearing, comfortable, no acute distress, well developed and alert Orientation/consciousness: patient oriented x3 Limitations: no limitations HEENT Head: Yes normal to inspection, Yes normocephalic and Yes atraumatic Ears: hearing grossly normal bilaterally and external ears normal Eyes General: appearance normal, both eyes and all related structures Eyelids: Yes eyelids normal Sclerae: sclerae normal EOM: EOMs intact bilaterally Neck Neck: Yes normal visual inspection and Yes no lymphadenopathy Lymphatic: no lymphadenopathy noted Chest Chest palpation & inspection: normal inspection of the chest Resp Effort & Inspection: normal respiratory effort, able to speak in complete sentences, no audible wheezes, no cough, no stridor, not tachypneic, no tripod positioning and no use of accessory muscles Auscultation: clear to auscultation bilaterally Cardio Jugular venous distension: no JVD Rate: regular rate Rhythm: regular rhythm Skin Other: warm, dry General skin exam: no rashes or lesions noted Neuro General: patient oriented x3 Cranial nerves: Yes Normal hearing present Cognition (Neuro): normal cognition Gait exam (Neuro): Normal gait present Extrem General: Yes normal to inspection, Yes capillary refill normal, Yes no clubbing, cyanosis or edema and Yes no pedal edema Psych Appearance: grossly normal and well kempt Speech and movement: Normal speech and movement present and Clear speech present Affect: normal affect Attitude: cooperative Thought process: Normal thought process present Thought content: Normal thought content present Insight: Good insight present (Psych) Judgement: Good judgement present (Psych) Results Reviewed Results Reviewed: Assessment & Plan Assessment & Plan (1) Obstructive sleep apnea: Code(s): G47.33 - Obstructive sleep apnea (adult) (pediatric) Plan Reviewed sleep study results with patient which revealed an AHI of 11. Since patient is quite symptomatic, will start CPAP therapy. Will send in prescription for APAP mode and pressure settings of 6-20 cm with close monitoring for compliance and benefits. Sleep hygiene education reviewed. He is aware if there are any issues with the mask or CPAP machine, he will call the office. All questions were answered and patient is in agreement of plan. Will follow up in three months or sooner if needed. Coding Level of Care Code New Pt Level 3 (04243) Diagnoses Obstructive sleep apnea G47.33
[2023-11-30 15:07] VITALS: BP 122/70; PULSE 64; O2SAT 100; BMI 32.7
== END 2023-11-30 16:29 | disposition home or self-care (01) ==
PROVIDERS: PCP Internal Medicine; Referring Provider Nurse Practitioner Family; Visit Provider Nurse Practitioner Family
DX: G47.33 Obstructive sleep apnea (adult) (pediatric) (principal)
CPT/HCPCS: 99203

== ENCOUNTER → 2023-11-30 15:00 | Outpatient (BNVA) | payer OTHER, SELFPAY | PROVIDERS: PCP Internal Medicine; Referring Provider Nurse Practitioner Family; Visit Provider Nurse Practitioner Family ==

== ENCOUNTER → 2023-12-22 15:47 | Outpatient (REF) | payer OTHER, SELFPAY ==
--- NOTE | 2023-12-22 15:57 | CA_ITS ---
Transthoracic Echocardiogram Patient (Last, First, Middle): Eric Martinez, Gender: Male Date of : 1960 Age: 63 Procedure Date: 12/22/2023 Procedure Type: Transthoracic Echocardiogram Location: OP Height: 180.34 cm Weight: 106.6 kg BSA: 2.26 m2 Heart Rate: bpm BP: 132 / 80 mmHg Assistant Professor Of Marine Biology: TIFFANIE Referring MD: Alda Coon BALANCE WHEEL SCREW HOLE TAPPER-C Symptoms: I42.9 - Cardiomyopathy, unspecified Study Quality: Good ECG Rhythm: Sinus with extra beats Conclusions: - The left ventricular systolic function is severely decreased. The calculated ejection fraction is 30% by biplane method. Findings Left Ventricle Severely increased left ventricular cavity size. There is mildly increased left ventricular wall thickness. The left ventricular systolic function is severely decreased. The calculated ejection fraction is 30% by biplane method. LV peak GLS -12%. Venous The inferior vena cava is mildly dilated and collapses greater than 50% with inspiration. Prior Study Comparison Changes noted compared to prior study dated: 08/26/2023. LVEF lower than previously reported. Measurements 2D Linear Measurements IVSd: 1.16 0.6-0.9/0.6-1.0 cm LVIDd: 6.46 3.9-5.3/4.2-5.9 cm LVIDd Index: 2.86 2.4-3.2/2.2-3.1 cm/m2 LVIDs: 5.67 2.0-3.6 cm LVPWd: 1.16 0.7-1.1 cm LV Mass: 423.54 67-162/88-224 g LV Mass Index: 187.41 43-95/49-115 g/m2 2D Systolic Function EF 4C: 30.30 >55% EF 2C: 33.80 >55% EF BiP: 30.40 >55% Updated in Other Vendor System with Status of Final Chilo Martinez MD electronically signed on 12/24/2023 8:37:05 AM with status of Final
== END ==
LOC: HO.CARD 15:47
PROVIDERS: PCP Internal Medicine; Visit Provider Nurse Practitioner Family
DX: I42.9 Cardiomyopathy, unspecified (principal)
CPT/HCPCS: 93308; 93356

== ENCOUNTER → 2023-12-22 15:57 | Outpatient (BNV) | payer OTHER, SELFPAY | PROVIDERS: PCP Internal Medicine; Visit Provider Internal Medicine | DX: I50.20 Unspecified systolic (congestive) heart failure (principal) | CPT/HCPCS: 93308; 93356 ==

== ENCOUNTER 2023-12-29 15:15 | Outpatient (AMB) | payer OTHER, SELFPAY ==
[2023-12-29 15:16] VITALS: BP 130/78; PULSE 68; BMI 33.2
--- NOTE | 2023-12-29 15:16 | A.OFFVIS_ITS ---
Vital Signs 12/29/23 15:16 Height 6 ft 1 in Weight 251 lb 5.231 oz BMI 33.2 BP 130/78 Blood Pressure Location Lt brachial Position Sitting Pulse 68 Intake Visit Reasons: 3 mth f/up echo Intake Note: 3 month follow-up with echo results feeling good Research Greenhouse Supervisor Required: No Allergies No Known Allergies Allergy (Verified 11/30/23 15:11) Medication List - Last Reconciled 12/29/23 by Chilo Martinez MD carvedilol 3.125 mg PO BID famotidine 40 mg PO DAILY fluticasone propionate 50 mcg/actuation 1 spray intranasal DAILY metronidazole 1% (Metrogel) 1 ea topical DAILY tadalafil (Cialis) 10 mg PO DAILY PRN valsartan 40 mg PO BID HPI Comments Details: Eric returns for follow-up. He was seen in consultation regarding PVCs. Routine EKG had shown PVCs leading to referral. Patient himself does not have any known cardiac issues like coronary disease or myocardial infarction or cardiomyopathy. He really does not have any clear-cut cardiac symptoms either. However, echocardiogram had shown severe LV dysfunction. He also underwent cardiac catheterization that shows normal coronary arteries. [facility] Medical History COVID-19 vaccine series completed Back pain Hypertension Surgical History H/O colonoscopy History of hemorrhoidectomy Family History Father Prostate cancer Mother Diabetes Family/Other Hypertension Diabetes Son No problems noted. Daughter No problems noted. Sister No problems noted. Brother No problems noted. 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 Cognitive needs: No Hearing needs: No Vision needs: No Review of Systems Const Denies chills, Denies fatigue, Denies fever(s), Denies frequent falls, Denies weakness, Denies weight gain and Denies weight loss ENT Denies dizziness Card Denies chest pain, Denies leg edema, Denies lightheadedness, Denies palpitations, Denies dyspnea, Denies dyspnea on exertion, Denies orthopnea and Denies other (loss of consciousness) Resp Denies cough, Denies dyspnea and Denies dyspnea on exertion GI Denies hematochezia and Denies change in stool character Musc Denies abnormal gait, Denies muscle weakness, Denies numbness, Denies radiating pain into limb and Denies tingling Neuro Denies abnormal gait, Denies dizziness, Denies frequent falls, Denies numbness, Denies tingling and Denies weakness Endo Denies fatigue and Denies palpitations Physical Exam Vital Signs: Last Vital Signs Pulse 68 12/29/23 15:16 BP 130/78 12/29/23 15:16 BMI result Body Mass Index 33.2 Const General: comfortable and no acute distress Orientation/consciousness: patient oriented x3 HEENT Other: Unremarkable Head: Yes normal to inspection Neck Neck: Yes normal visual inspection Chest Chest palpation & inspection: normal inspection of the chest Resp Auscultation: clear to auscultation bilaterally Cardio Palpation: normal PMI Heart sounds: S1 normal heart sound present, S2 normal heart sound present, no gallops, no murmurs and no rubs GI Palpation (GI): Soft to palpation Back/Spine/Pelvis Other: unremarkable Skin General skin exam: no rashes or lesions noted Neuro General: patient oriented x3 Extrem General: Yes normal to inspection Psych Mental Status: mental status grossly normal Assessment & Plan Assessment & Plan (1) PVC (premature ventricular contraction): Code(s): I49.3 - Ventricular premature depolarization Category: Medical (2) Cardiomyopathy: Code(s): I42.9 - Cardiomyopathy, unspecified Category: Medical (3) Obesity: Code(s): E66.9 - Obesity, unspecified Category: Medical (4) Obstructive sleep apnea: Code(s): G47.33 - Obstructive sleep apnea (adult) (pediatric) Category: Medical Plan EKG with sinus rhythm at 94/Min; frequent PVCs. Variable morphology. Normal MS and corrected QT. Echocardiogram from August 2023 with LVEF of 35-40%. In the repeat echocardiogram from December, LVEF is 30%. Peak global longitudinal strain-12%. Cardiac catheterization shows normal coronary arteries. Holter shows frequent PVCs with a burden of 16%. Several couplets, triplets, bigeminy, trigeminy, short runs, longest 7 beats. Findings discussed with patient. Essentially he is got frequent PVCs possibly leading to cardiomyopathy. His obesity and BERENICE may play a role. Advised him about those. Continue CPAP and make attempts to lose weight. Obtain cardiac MRI to assess for any infiltrative disease. Will refer to EP for further evaluation - ? PVC ablation. Orders: Orders MR cardiac morph fnct w con Today I42.9 - Cardiomyopathy, unspecified, I49.3 - Ventricular premature depolarization Referrals Cardiac Electrophysiology Referral I42.9 - Cardiomyopathy, unspecified, I49.3 - Ventricular premature depolarization Coding Level of Care Code Est Pt Level 4 (63614) Diagnoses PVC (premature ventricular contraction) I49.3 Cardiomyopathy I42.9 Obesity E66.9 Obstructive sleep apnea G47.33
== END 2023-12-29 15:39 | disposition home or self-care (01) ==
PROVIDERS: PCP Internal Medicine; Visit Provider Internal Medicine
DX: I49.3 Ventricular premature depolarization (principal); I42.9 Cardiomyopathy, unspecified; E66.9 Obesity, unspecified; G47.33 Obstructive sleep apnea (adult) (pediatric)
CPT/HCPCS: 99214

== ENCOUNTER → 2023-12-29 15:15 | Outpatient (BNVA) | payer OTHER, SELFPAY | PROVIDERS: PCP Internal Medicine; Visit Provider Internal Medicine ==

== ENCOUNTER 2024-03-01 14:56 | Outpatient (AMB) | payer OTHER, SELFPAY ==
[2024-03-01 15:16] VITALS: BP 118/76; PULSE 81; O2SAT 96; BMI 32.5
--- NOTE | 2024-03-01 15:16 | A.OFFVIS_ITS ---
Vital Signs 03/01/24 15:16 Height 6 ft 1 in Weight 246 lb BMI 32.5 BP 118/76 Blood Pressure Location Rt brachial Position Sitting Pulse 81 Pulse Source Pulse Oximeter Pulse Oximetry (%) 96 Oxygen Delivery Method Room Air Intake Visit Reasons: Sleep apnea Allergies No Known Allergies Allergy (Verified 03/01/24 15:18) HPI HPI Sleep apnea: Details: Eric is a pleasant 63 year old male, former smoker, with underlying HTN. He was referred by cardiology for pulmonary evaluation after recent echo revealing cardiomyopathy. Echo 2022 revealed EF 35-40%, impaired relaxation and moderately dilated left atrium with cardiac cath unremarkable. He recently had a home sleep study for symptoms of hypersomnia and loud snoring., study revealed mild obstructive sleep apnea with AHI of 11. Patient was started on CPAP therapy and patient presents today to review compliance. He does note issues with humidity making it difficult to wear comfortably as well as issues with the mask. [facility] Medical History COVID-19 vaccine series completed Back pain Hypertension Surgical History H/O colonoscopy History of hemorrhoidectomy Family History Father Prostate cancer Mother Diabetes Family/Other Hypertension Diabetes Son No problems noted. Daughter No problems noted. Sister No problems noted. Brother No problems noted. 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 Cognitive needs: No Hearing needs: No Vision needs: No Review of Systems Const Denies chills, Denies excessive sweating, Denies fever(s), Denies headache(s) and Denies night sweats Eyes Denies dry eyes, Denies irritation and Denies itchy eyes ENT Reports Normal hearing present, Denies headache(s), Denies nasal congestion, Denies nasal discharge, Denies post nasal drip and Denies sore throat Card Denies chest pain, Denies chest pain at rest, Denies chest pain with activity, Denies claudication, Denies leg edema, Denies orthopnea and Denies paroxysmal nocturnal dyspnea Resp Denies chest congestion, Denies cough, Denies excessive phlegm production, Denies pain on inspiration, Denies pain with cough, Denies stridor and Denies wheezing Musc Denies myalgias Neuro Reports Normal hearing present and Denies headache(s) Endo Denies excessive sweating Mekhi/Lymph Denies lymphadenopathy Aller/Immun Denies itchy eyes, Denies seasonal rhinorrhea and Denies wheezing Physical Exam Vital Signs: Last Vital Signs Pulse 81 03/01/24 15:16 BP 118/76 03/01/24 15:16 Pulse Ox 96 03/01/24 15:16 Oxygen Delivery Method Room Air 03/01/24 15:16 BMI result Body Mass Index 32.5 Const General: cooperative, healthy appearing, comfortable, no acute distress, well developed and alert Orientation/consciousness: patient oriented x3 Limitations: no limitations HEENT Head: Yes normal to inspection, Yes normocephalic and Yes atraumatic Ears: hearing grossly normal bilaterally and external ears normal Eyes General: appearance normal, both eyes and all related structures Eyelids: Yes eyelids normal Sclerae: sclerae normal EOM: EOMs intact bilaterally Neck Neck: Yes normal visual inspection and Yes no lymphadenopathy Lymphatic: no lymphadenopathy noted Chest Chest palpation & inspection: normal inspection of the chest Resp Effort & Inspection: normal respiratory effort, able to speak in complete sentences, no audible wheezes, no cough, no stridor, not tachypneic, no tripod positioning and no use of accessory muscles Auscultation: clear to auscultation bilaterally Cardio Jugular venous distension: no JVD Rate: regular rate Rhythm: regular rhythm Skin Other: warm, dry General skin exam: no rashes or lesions noted Neuro General: patient oriented x3 Cranial nerves: Yes Normal hearing present Cognition (Neuro): normal cognition Gait exam (Neuro): Normal gait present Extrem General: Yes normal to inspection, Yes capillary refill normal, Yes no clubbing, cyanosis or edema and Yes no pedal edema Psych Appearance: grossly normal and well kempt Speech and movement: Normal speech and movement present and Clear speech present Affect: normal affect Attitude: cooperative Thought process: Normal thought process present Thought content: Normal thought content present Insight: Good insight present (Psych) Judgement: Good judgement present (Psych) Assessment & Plan Assessment & Plan (1) Obstructive sleep apnea: Code(s): G47.33 - Obstructive sleep apnea (adult) (pediatric) Category: Medical Plan Reviewed compliance report and when patient using, AHI decreased to less than 1. However, compliance is minimal.He reports significant difficulty with the humidity as well as issues with masks. Discussed with patient trailing different settings of humidity to ensure better compliance. He is also agreeable to calling [employer] to trial different masks. He is motivated to be compliant with therapy and will make efforts to ensure this. Will follow up in three months or sooner if needed. He is aware if he continues to have issues to call the office. All questions were answered and patient is in agreement of plan. Coding Level of Care Code Est Pt Level 3 (07463) Diagnoses Obstructive sleep apnea G47.33
== END 2024-03-01 15:54 | disposition home or self-care (01) ==
PROVIDERS: PCP Internal Medicine; Visit Provider Nurse Practitioner Family
DX: G47.33 Obstructive sleep apnea (adult) (pediatric) (principal)
CPT/HCPCS: 99213

== ENCOUNTER → 2024-03-01 14:56 | Outpatient (BNVA) | payer OTHER, SELFPAY | PROVIDERS: PCP Internal Medicine; Visit Provider Nurse Practitioner Family ==

== ENCOUNTER 2024-03-07 14:12 | Outpatient (AMB) | payer OTHER, SELFPAY ==
[2024-03-07 14:19] VITALS: BP 132/90; PULSE 60; O2SAT 100; BMI 32.3
--- NOTE | 2024-03-07 14:19 | A.OFFPC_ITS ---
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: Not Required per policy Accompanied by: Self / Same As Patient Allergies No Known Allergies Allergy (Verified 03/07/24 14:19) Medication List - Last Reconciled 03/07/24 by Guido Masterson MD carvedilol 3.125 mg PO BID famotidine 40 mg PO DAILY fluticasone propionate 50 mcg/actuation 1 spray intranasal DAILY metronidazole 1% (Metrogel) 1 ea topical DAILY tadalafil (Cialis) 10 mg PO DAILY PRN valsartan 40 mg PO BID Tobacco use date assessed: 03/07/24 Dental Screening Dental Screen Date: 03/07/24 Did you have a dental visit in the last 12 months?: Yes Did you have a dental problem in the last 6 months where you did not have access to dental care?: No Was dental information given to patient?: Patient has dentist HPI f/u hipertension med HPI Details was on oxycodone for chronic back pain; stopped this a year ago and wants to go back on; I declined. Will try tramadol PFSH Medical History COVID-19 vaccine series completed Back pain Hypertension Surgical History H/O colonoscopy History of hemorrhoidectomy Family History Father Prostate cancer Mother Diabetes Family/Other Hypertension Diabetes Son No problems noted. Daughter No problems noted. Sister No problems noted. Brother No problems noted. 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 1. Little interest or pleasure in doing things: not at all 2. Feeling down, depressed, or hopeless: not at all 3. Trouble falling or staying asleep, or sleeping too much: not at all 4. Feeling tired or having little energy: not at all 5. Poor appetite or overeating: not at all 6. Feeling bad about yourself - or that you are a failure or have let yourself or your family down: not at all 7. Trouble concentrating on things, such as reading the newspaper or watching television: not at all 8. Moving or speaking so slowly that other people could have noticed. Or the opposite - being so fidgety or restless that you have been moving around a lot more than usual: not at all 9. Thoughts that you would be better off or of hurting yourself in some way: not at all Total score: 0 Depression Screening Interpretation: Negative Depression Screening Done: Yes 65471 - PHQ-9 Billing: Yes Source: Developed by Drs. Martín Jessica, Yolette Gomez, Anthony Diaz and colleagues, with an educational mikayla from [employer]. Thrive Questionnaire Date Thrive assessed: 03/07/24 I am a: Patient What is your living situation today?: I have a steady place to live Within the past 12 months, did the food you bought not last and you didn't have the money to get more?: Never true Within the past 12 months, did you worry whether your food would run out before you got money to buy more?: Never true Do you have trouble paying for medicines?: No Do you have trouble getting transportation to medical appointments?: No Do you have trouble paying your heating and electricity bill?: No Do you have trouble taking care of your child, family member or friend?: No Do you have trouble with day-to-day activities such as bathing, preparing meals, shopping, managing finances, etc.?: No Are you currently unemployed and looking for a job?: No Are you interested in more education?: No Please select the resources that you would like help with: None THRIVE Score: 0 AUDIT C Alcohol Use Questionnaire (AUDIT-C) 1. How often do you have a drink containing alcohol?: Never Total Score: 0 Score Reviewed/Action Taken: Yes KYRA-7 AMB Questionnaire KYRA-7 Date KYRA - 7 assessed: 03/07/24 Feeling nervous, anxious, or on edge: 0 = Not at all Not being able to stop or control worryin = Not at all Worrying too much about different things: 0 = Not at all Trouble relaxin = Not at all Being so restless that it is hard to sit still: 0 = Not at all Becoming easily annoyed or irritable: 0 = Not at all Feeling afraid as if something awful might happen: 0 = Not at all Total KYRA-7 score (0-4 normal; 5-9 mild; 10-14 moderate; 15-21 severe): 0 Source: Developed by Drs. Martín Jessica, Yolette Gomez, Anthony Diaz and colleagues, with an educational mikayla from [employer]. Review of Systems Const Denies chills, Denies headache(s) and Denies weight loss ENT Denies headache(s) Card Denies chest pain, Denies syncope, Denies irregular heart rhythm and Denies dyspnea Resp Denies chest congestion, Denies cough and Denies dyspnea GI Denies abdominal pain, Denies change in stool character, Denies nausea and Denies vomiting Musc Denies deformity and Denies joint swelling Neuro Denies syncope and Denies headache(s) Physical exam (Primary Care) Vital Signs: Last Vital Signs Pulse 60 03/07/24 14:19 BP 132/90 H 03/07/24 14:19 Pulse Ox 100 03/07/24 14:19 Oxygen Delivery Method Room Air 03/07/24 14:19 BMI result Body Mass Index 32.3 Tobacco/Smoking Status: Tobacco use Status Tobacco use date assessed 03/07/24 03/07/24 14:20 Patient Tobacco Use Status Former Tobacco user 03/07/24 14:20 Tobacco use type Cigarette 03/07/24 14:20 e-Cigarette/Vaping Use Never Used 03/07/24 14:20 PHQ-9: PHQ-9 Score PHQ-9: Total score 0 03/07/24 14:20 Depression Screening Interpretation: Negative Thrive Assessment: Date of Thrive Assessment Date Thrive assessed 03/07/24 03/07/24 14:20 Const General: cooperative, comfortable, no acute distress and alert Neck Neck: Yes no lymphadenopathy Thyroid: Thyroid normal Resp Effort & Inspection: normal respiratory effort Auscultation: clear to auscultation bilaterally Percussion: percussion normal Cardio Jugular venous distension: no JVD Palpation: normal PMI Rate: regular rate Rhythm: regular rhythm Heart sounds: S1 normal heart sound present and S2 normal heart sound present GI Inspection: Yes normal to inspection Palpation (GI): No hepatosplenomegaly present Skin General skin exam: no rashes or lesions noted Extrem General: Yes no clubbing, cyanosis or edema Assessment and Plan Assessment & Plan (1) Low back pain: Code(s): M54.50 - Low back pain, unspecified Plan: rx sent Medications: New tramadol 50 mg PO Q8H PRN 20 tabs 0RF pain Coding Level of Care Code Est Pt Level 3 (94872) Diagnoses Low back pain M54.50
== END 2024-03-07 14:39 | disposition home or self-care (01) ==
PROVIDERS: PCP Internal Medicine; Visit Provider Internal Medicine
DX: M54.50 Low back pain, unspecified (principal)
CPT/HCPCS: 99213

== ENCOUNTER 2024-04-05 15:01 | Outpatient (REF) | payer OTHER, SELFPAY ==
--- NOTE | ~2024-04-05 | MR_ITS ---
MRI OF THE LUMBAR SPINE WITHOUT CONTRAST CLINICAL INFORMATION: Lumbar region radiculopathy. COMPARISON: None. TECHNIQUE: Multiplanar multisequence MR imaging of the lumbar spine obtained without contrast. FINDINGS: There are 5 non-rib bearing lumbar type vertebral bodies. Lumbar alignment is maintained. The vertebral body heights are preserved. There is moderate to severe disc volume loss at L4-L5 and there is moderate disc line loss at L5-S1. Modic type I signal changes at L2-L3 and L4-L5. No additional bone marrow edema. No acute fractures. The vertebral body heights are overall maintained. The conus terminates at the T12-L1 level. Bilateral perinephric stranding. Hypertrophic degenerative changes across the SI joints bilaterally. Please note that axial T2-weighted imaging obtained for this examination is nondiagnostic and the patient could not repeat this series. Very limited assessment of the disc levels. L1-L2: A far right lateral disc osteophyte protrusion results in mild right-sided foraminal encroachment and may contact the extraforaminal right L1 nerve root. L2-L3: Diffuse annular disc bulge and mild bilateral facet arthropathy and prominent dorsal epidural fat results in moderate thecal sac effacement. A right lateral disc osteophyte protrusion and facet arthropathy result in moderate right-sided foraminal stenosis and compression of the extraforaminal right L2 nerve root. L3-L4: There is a diffuse annular disc bulge and there is moderate bilateral facet arthropathy and ligamentum flavum thickening as well as prominent dorsal epidural fat resulting in moderate thecal sac effacement. Disc osteophyte and facet arthropathy result in moderate bilateral foraminal stenosis with mild mass effect on the foraminal and extraforaminal segments of the exiting L3 nerve roots bilaterally. L4-L5: Grade 1 retrolisthesis. Diffuse disc osteophyte complex and bilateral facet arthropathy result in bilateral subarticular zone stenosis with mass effect on the traversing L5 nerve roots bilaterally and moderate bilateral foraminal stenosis with disc osteophyte contacting the extraforaminal L4 nerve roots bilaterally. L5-S1: Diffuse disc osteophyte complex and right greater than left facet arthropathy. Moderate bilateral foraminal stenosis with disc osteophyte resulting in mass effect on the extraforaminal L5 nerve roots bilaterally. MR/MR lumbar spine wo con IMPRESSION: * Please note that axial T2-weighted imaging obtained for this examination is nondiagnostic and the patient could not repeat this series. Very limited assessment of the disc levels. * At L5-S1, multifactorial degenerative changes result in moderate bilateral foraminal stenosis with disc osteophyte resulting in mass effect on the extraforaminal L5 nerve roots bilaterally. * At L4-L5, grade 1 retrolisthesis and multifactorial degenerative changes result in bilateral subarticular zone stenosis with mass effect on the traversing L5 nerve roots bilaterally and moderate bilateral foraminal stenosis with disc osteophyte contacting the extraforaminal L4 nerve roots bilaterally. * At L3-L4, multifactorial degenerative changes and prominent dorsal epidural fat result in moderate thecal sac effacement as well as moderate bilateral foraminal stenosis with mild mass effect on the foraminal and extraforaminal segments of the exiting L3 nerve roots bilaterally. * At L2-L3, spondylitic changes and epidural lipomatosis result in moderate thecal sac effacement and a right lateral disc osteophyte protrusion and facet arthropathy result in moderate right-sided foraminal stenosis and compression of the extraforaminal right L2 nerve root. Electronically signed by: Max Chandler MD 05/01/2024 01:02 PM EDT
[2024-04-05 17:35] LABS: Anion Gap 11 (12-20); Blood Urea Nitrogen 11 mg/dL (9-16); Calcium 9.5 mg/dL (8.4-10.2); Carbon Dioxide 25 mmol/L (22-29); Chloride 110 mmol/L (96-108); Estimated Glomerular Filt Rate > 60; Glucose Random 92 mg/dL (60-115); Potassium 3.9 mmol/L (3.3-5.1); Sodium 142 mmol/L (135-145)
== END 2024-04-05 15:02 | disposition home or self-care (01) ==
LOC: HO.MRI 15:01
PROVIDERS: Nurse Practitioner Family; PCP Internal Medicine; Visit Provider Internal Medicine
DX: M54.16 Radiculopathy, lumbar region (principal); I42.9 Cardiomyopathy, unspecified
CPT/HCPCS: 36415; 72148; 80048

== ENCOUNTER 2024-05-12 14:15 | Outpatient (AMB) | payer OTHER, SELFPAY ==
[2024-05-12 14:16] VITALS: BP 136/72; PULSE 87; O2SAT 97; BMI 31.8
--- NOTE | 2024-05-12 14:16 | A.OFFPC_ITS ---
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 Accompanied by: Self / Same As Patient Allergies No Known Allergies Allergy (Verified 05/12/24 14:17) Medication List - Last Reconciled 05/16/24 by Guido Masterson MD carvedilol 3.125 mg PO BID famotidine 40 mg PO DAILY fluticasone propionate 50 mcg/actuation 1 spray intranasal DAILY metronidazole 1% (Metrogel) 1 ea topical DAILY tadalafil (Cialis) 10 mg PO DAILY PRN tramadol 50 mg PO Q8H PRN valsartan 40 mg PO BID Tobacco use date assessed: 03/07/24 Dental Screening Dental Screen Date: 03/07/24 HPI Annual Exam HPI Details sleep apnea on CPAP; compliant; cardiomyopathy and sees cardiology; hypertension PFSH Medical History COVID-19 vaccine series completed Back pain Hypertension Surgical History H/O colonoscopy History of hemorrhoidectomy Family History Father Prostate cancer Mother Diabetes Family/Other Hypertension Diabetes Son No problems noted. Daughter No problems noted. Sister No problems noted. Brother No problems noted. 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 1. Little interest or pleasure in doing things: several days 2. Feeling down, depressed, or hopeless: several days 4. Feeling tired or having little energy: several days 6. Feeling bad about yourself - or that you are a failure or have let yourself or your family down: not at all 8. Moving or speaking so slowly that other people could have noticed. Or the opposite - being so fidgety or restless that you have been moving around a lot more than usual: several days Depression Screening Interpretation: Negative Depression Screening Done: Yes 99094 - PHQ-9 Billing: Yes Source: Developed by Drs. Martín Jessica, Yolette Gomez, Anthony Diaz and colleagues, with an educational mikayla from [employer] Thrive Questionnaire Date Thrive assessed: 05/05/24 I am a: Patient What is your living situation today?: I have a steady place to live Within the past 12 months, did the food you bought not last and you didn't have the money to get more?: Sometimes True Within the past 12 months, did you worry whether your food would run out before you got money to buy more?: Sometimes True Do you have trouble paying for medicines?: Yes Do you have trouble getting transportation to medical appointments?: No Do you have trouble paying your heating and electricity bill?: No Do you have trouble taking care of your child, family member or friend?: No Do you have trouble with day-to-day activities such as bathing, preparing meals, shopping, managing finances, etc.?: No Are you currently unemployed and looking for a job?: No Are you interested in more education?: No Please select the resources that you would like help with: Paying for medicine Currently or been in a relationship where the following occur: No concerns reported THRIVE Score: 2 AUDIT C Alcohol Use Questionnaire (AUDIT-C) 1. How often do you have a drink containing alcohol?: Never 2. How many drinks containing alcohol do you have on a typical day when you are drinking?: 1 or 2 3. How often do you have six or more drinks on one occasion?: Never Total Score: 0 KYRA-7 AMB Questionnaire KYRA-7 Date KYRA - 7 assessed: 03/07/24 Feeling nervous, anxious, or on edge: 0 = Not at all Not being able to stop or control worryin = Not at all Worrying too much about different things: 0 = Not at all Trouble relaxin = Several days Being so restless that it is hard to sit still: 1 = Several days Becoming easily annoyed or irritable: 0 = Not at all Feeling afraid as if something awful might happen: 0 = Not at all Total KYRA-7 score (0-4 normal; 5-9 mild; 10-14 moderate; 15-21 severe): 2 Source: Developed by Drs. Martín Jessica, Yolette Gomez, Anthony Diaz and colleagues, with an educational mikayla from [employer] KYRA-7 Assessment Billing KYRA-7 Assessment Tool: KYRA-7 Assessment 73343 Review of Systems Const Denies chills, Denies fatigue, Denies headache(s) and Denies weight loss Eyes Denies change in vision, Denies diplopia and Denies eye pain ENT Denies vertigo, Denies dizziness, Denies headache(s) and Denies nasal discharge Card Denies chest pain, Denies rapid heart rate and Denies dyspnea on exertion Resp Denies chest congestion, Denies cough, Denies pain with cough and Denies dyspnea on exertion GI Denies abdominal pain, Denies hematochezia and Denies change in bowel habits Musc Denies myalgias, Denies arthralgias and Denies joint swelling Skin/Breast Denies lesions and Denies unusual bruising Neuro Denies vertigo, Denies dizziness, Denies headache(s) and Denies focal weakness Endo Denies fatigue Physical exam (Primary Care) Vital Signs: Last Vital Signs Pulse 87 05/12/24 14:16 BP 136/72 05/12/24 14:16 Pulse Ox 97 05/12/24 14:16 Oxygen Delivery Method Room Air 05/12/24 14:16 BMI result Body Mass Index 31.8 Tobacco/Smoking Status: Tobacco use Status Tobacco use date assessed 03/07/24 05/12/24 14:22 Patient Tobacco Use Status Former Tobacco user 05/12/24 14:22 Tobacco use type Cigarette 05/12/24 14:22 e-Cigarette/Vaping Use Never Used 05/12/24 14:22 Depression Screening Interpretation: Negative Thrive Assessment: Date of Thrive Assessment Date Thrive assessed 05/05/24 05/12/24 14:22 Currently or been in a relationship where the following occur: No concerns reported Const General: cooperative, healthy appearing and no acute distress Orientation/consciousness: oriented to person, oriented to place and oriented to time HENMT Head: Yes normal to inspection, Yes normocephalic and Yes atraumatic Mouth: Normal oral and palatal mucosa present and tongue normal Throat: Yes posterior oropharynx normal and Yes uvula midline Eyes General: appearance normal, both eyes and all related structures Neck Neck: Yes normal visual inspection, Yes full ROM and Yes no lymphadenopathy Thyroid: Thyroid normal Carotids: normal carotid upstroke Chest Chest palpation & inspection: normal inspection of the chest Resp Effort & Inspection: normal respiratory effort and able to speak in complete sentences Auscultation: clear to auscultation bilaterally Cardio Jugular venous distension: no JVD Palpation: normal PMI Rate: regular rate Rhythm: regular rhythm Heart sounds: S1 normal heart sound present and S2 normal heart sound present GI Inspection: Yes normal to inspection Palpation (GI): Soft to palpation and No hepatosplenomegaly present Auscultation: normal bowel sounds General: Yes no CVA tenderness Back/Spine/Pelvis Back: no CVA tenderness Skin General skin exam: no rashes or lesions noted Neuro General: oriented to person, oriented to place and oriented to time Extrem General: Yes normal to inspection and Yes full ROM Assessment and Plan Assessment & Plan (1) Physical exam: Code(s): Z00.00 - Encounter for general adult medical examination without abnormal findings Plan: stable (2) Hypertension: Comment: stable; same rx Code(s): I10 - Essential (primary) hypertension Plan: stable; same rx (3) Cardiomyopathy: Code(s): I42.9 - Cardiomyopathy, unspecified Plan: stable; same rx (4) Obstructive sleep apnea: Code(s): G47.33 - Obstructive sleep apnea (adult) (pediatric) Plan[facility] Orders: Orders Lipid Panel 05/12/24 Z13.220 - Encounter for screening for lipoid disorders Thyroid Stimulating Hormone 05/12/24 Z13.29 - Encounter for screening for other suspected endocrine disorder Complete Blood Count Auto Diff 05/12/24 Z13.0 - Encounter for screening for diseases of the blood and blood-forming organs and certain disorders involving the immune mechanism Comprehensive Howard. Panel Fast 05/12/24 Z13.9 - Encounter for screening, unspecified Prostate Specific Antigen Scr 05/12/24 Z00.00 - Encounter for general adult medical examination without abnormal findings Referrals Neurosurgery Referral M51.9 - Unspecified thoracic, thoracolumbar and lumbosacral intervertebral disc disorder Medications: Refilled fluticasone propionate 50 mcg/actuation administer into each nostril 1 spray intranasal DAILY 16 grams 8RF Coding Level of Care Code Est Pt Prev Care 40-64y(35525) Diagnoses Physical exam Z00.00 Hypertension I10 Cardiomyopathy I42.9 Obstructive sleep apnea G47.33 Additional Codes KYRA-7 Assessment Billing - KYRA-7 Assessment Tool: KYRA-7 Assessment [id number] ([id number])
== END 2024-05-12 14:38 | disposition home or self-care (01) ==
PROVIDERS: PCP Internal Medicine; Visit Provider Internal Medicine
DX: Z00.00 Encounter for general adult medical examination without abnormal findings (principal); I10 Essential (primary) hypertension; I42.9 Cardiomyopathy, unspecified; G47.33 Obstructive sleep apnea (adult) (pediatric)
CPT/HCPCS: 99396

== ENCOUNTER 2024-05-29 14:43 | Outpatient (AMB) | payer OTHER, SELFPAY ==
--- NOTE | 2024-05-29 14:51 | A.SPINEOV_ITS ---
Intake Visit Reasons: lumbar radiculopathy Intake Note: Mr. Martinez is here today c/o low back pain. [place] [facility] [place] Required: No Allergies No Known Allergies Allergy (Verified 05/12/24 14:17) Assessment & Plan Assessment & Plan (1) Lumbar radiculopathy: Code(s): M54.16 - Radiculopathy, lumbar region Category: Medical Plan Dear Dr. Mastreson, Thank you for referring Eric to our office today. He is a pleasant 64-year-old male who comes in today with a chief complaint of low back pain occasional shooting pain down his left lower extremity. When describing his shooting pain he states that it starts in his left posterior thigh and shoots down his left posterior gastrocnemius to the bottom of his left foot. He reports that this shooting pain waxes/wanes throughout the day. He previously was able to manage this pain with stretching, exercise, and prescription medications. He does report some associated numbness/tingling in his left foot when he feels the shooting pain. He denies any inciting incident and states he has had low back pain for a ?very long time. He reports that his pain has simply gradually progressed as the years have gone by. He reports that he has been to physical therapy in the past but has been quite a long time since he has gone. He also has attempted cortisone injections in the past near L4-5 but found there were not helpful for him. PMH: Hypertension, obstructive sleep apnea, cardiomyopathy, GERD. Social hx: Patient does not smoke, reports no substance use. Medications: Tramadol, valsartan, Cialis, famotidine, carvedilol, fluticasone. Allergies: NKDA. Physical exam: The patient has 5/5 strength in his upper and lower extremities. He has no significant sensational deficits on exam. His reflexes are 2+ intact on exam. He is able to ambulate well and rises from a seated position without difficulty. (-) bilateral straight leg raise, (-) Jain's, (-) clonus. Imaging review: MRI of the lumbar spine completed here at [facility] shows diffuse spondylosis of the lumbar spine. This exam is limited due to a lack of T2 images as patient was unable to tolerate MRI. There is notable degenerative disc disease, worse at L4-5 but also present at L5-S1. There is facet hypertrophy at L3-4. The images I am able to see with the foramen appear patent without any obvious sign of significant stenosis. There is no evidence of disc herniation or extrusion. Impression: Eric is a pleasant 64-year-old male who comes in today with a chief complaint of low back pain and intermittent shooting pain down his left lower extremity. He reports this has been ongoing for many years, and denies any specific inciting incident. His disclosed radicular pain is most consistent with a left-sided S1 nerve root impingement, however the S1 foramen on the left side appears patent based on what I am able to see given his limited MRI results. He does have undeniable degenerative changes of his lumbar spine including degenerative disc disease at L4-5 and L5-S1, and varying levels of stenosis found throughout the lumbar spine. We did discuss the possibility of surgical interventions that could help resolve some of the longstanding compression that I identified in his lumbar spine, but he would prefer to pursue conservative measures at this time. I think this is probably best for him given his current circumstance. Thankfully Eric is still very functional at this time. I would like to send him for a course of physical [place] [facility] [place] continue following up with his primary care provider. I would also recommend referral to pain management if he is in need of chronic long-term pain control. Thank you for allowing us to care for your patient. The total time spent with this visit with this patient was 45 minutes reviewing history, physical exam, MRI imaging review, and implementation of treatment plan or further diagnostic testing Wilberto Avila MD,PhD [facility] Orders: Orders PT Evaluation and Treatment 05/29/24 M54.16 - Radiculopathy, lumbar region Coding Level of Care Code New Pt Level 4 (10406) Diagnoses Lumbar radiculopathy M54.16
== END 2024-05-29 15:19 | disposition home or self-care (01) ==
PROVIDERS: PCP Internal Medicine; Referring Provider Internal Medicine; Visit Provider Physician Assistant
DX: M54.16 Radiculopathy, lumbar region (principal)
CPT/HCPCS: 99204

== ENCOUNTER → 2024-05-29 14:43 | Outpatient (BNVA) | payer OTHER, SELFPAY | PROVIDERS: PCP Internal Medicine; Visit Provider Physician Assistant ==

== ENCOUNTER 2024-06-14 15:59 | Outpatient (REF) | payer OTHER, SELFPAY ==
[2024-06-14 16:13] LABS: MANUAL DIFF FLAG NO
[2024-06-14 17:28] LABS: Basophils Percent Auto 0.6 % (0-2); Eosinophils Absolute Auto 0.1 X10*3/uL (0.0-0.4); Eosinophils Percent Auto 2.1 % (0-4); Hematocrit 44.1 % (42.0-52.0); Hemoglobin 14.7 g/dl (14.0-18.0); Imm Gran Abs Auto 0.02 X10*3/uL (0.00-0.03); Imm Gran Pct Auto 0.4 % (0.0-0.4); Lymphocytes Absolute Auto 2.1 X10*3/uL (1.2-4.9); Lymphocytes Percent Auto 45.7 % (20-40); Mean Corpuscular HGB Conc 33.3 g/dl (31.0-36.0); Mean Corpuscular Hemoglobin 29.3 pg (27.0-33.0); Monocytes Absolute Auto 0.5 X10*3/uL (0.1-1.2); Monocytes Percent Auto 9.9 % (2-11); Neutrophils Absolute Auto 1.9 x10*3/uL (2.0-8.3); Neutrophils Percent Auto 41.3 % (45-73); Platelet Count 127 X10*3/uL (160-400); Red Blood Count 5.01 X10*6/uL (4.60-5.80); Red Cell Distribution Width 14.3 % (11.0-16.0); White Blood Count 4.7 X10*3/uL (4.8-10.8)
[2024-06-14 17:40] LABS: Alanine Aminotransferase 26 U/L (0-40); Albumin Level 4.2 g/dL (3.5-5.0); Alkaline Phosphatase 63 U/L (39-117); Anion Gap 13 (12-20); Aspartate Amino Transferase 26 U/L (5-37); Bilirubin Total 0.6 mg/dL (0.0-1.0); Blood Urea Nitrogen 11 mg/dL (9-16); Calcium 9.3 mg/dL (8.4-10.2); Carbon Dioxide 25 mmol/L (22-29); Chloride 108 mmol/L (96-108); Cholesterol 254 mg/dL (<200); Estimated Glomerular Filt Rate > 60; Glucose Fasting 90 mg/dL (60-99); HDL Cholesterol 39 mg/dL (>40); LDL Cholesterol Calculated 136 mg/dL (<100); Potassium 3.6 mmol/L (3.3-5.1); Sodium 142 mmol/L (135-145); Total Protein 7.4 g/dL (6.5-8.0); Triglycerides 398 mg/dL (<150)
[2024-06-14 17:55] LABS: Prostate Specific Antigen Scr 1.45 ng/mL (<0.05-4.0); Thyroid Stimulating Hormone 1.07 uIU/mL (0.32-4.0)
== END 2024-06-14 16:00 | disposition home or self-care (01) ==
LOC: HO.LAB 15:59
PROVIDERS: PCP Internal Medicine; Visit Provider Internal Medicine
DX: Z00.00 Encounter for general adult medical examination without abnormal findings (principal); Z13.220 Encounter for screening for lipoid disorders; Z13.29 Encounter for screening for other suspected endocrine disorder; Z13.0 Encounter for screening for diseases of the blood and blood-forming organs and certain disorders involving the immune mechanism; Z13.9 Encounter for screening, unspecified; Z12.5 Encounter for screening for malignant neoplasm of prostate
CPT/HCPCS: 36415; 80053; 80061; 84153; 84443; 85025

== ENCOUNTER 2024-06-15 09:34 | Outpatient (AMB) | payer OTHER, SELFPAY ==
[2024-06-15 09:37] VITALS: BP 132/72; PULSE 76; O2SAT 96; BMI 32.5
--- NOTE | 2024-06-15 09:37 | MHC.PC.OV ---
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 Required: No Accompanied by: Self / Same As Patient Allergies No Known Allergies Allergy (Verified 05/12/24 14:17) Tobacco use date assessed: 03/07/24 Fall risk assessment: No Falls in past year Last assessed Fall Risk: 06/15/24 Dental Screening Dental Screen Date: 03/07/24 HPI Back pain HPI Details spinal disc disease; has seen Dr Fernandez and he recommend pain management referral; I have done this [facility] Medical History COVID-19 vaccine series completed Back pain Hypertension Surgical History H/O colonoscopy History of hemorrhoidectomy Family History Father Prostate cancer Mother Diabetes Family/Other Hypertension Diabetes Son No problems noted. Daughter No problems noted. Sister No problems noted. Brother No problems noted. 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 1. Little interest or pleasure in doing things: several days 2. Feeling down, depressed, or hopeless: several days 4. Feeling tired or having little energy: several days 6. Feeling bad about yourself - or that you are a failure or have let yourself or your family down: not at all 8. Moving or speaking so slowly that other people could have noticed. Or the opposite - being so fidgety or restless that you have been moving around a lot more than usual: several days Depression Screening Interpretation: Negative Depression Screening Done: Yes 42594 - PHQ-9 Billing: Yes Source: Developed by Drs. Martín Jessica, Yolette Gomez, Anthony Diaz and colleagues, with an educational mikayla from [employer]. Thrive Questionnaire Date Thrive assessed: 05/05/24 I am a: Patient What is your living situation today?: I have a steady place to live Within the past 12 months, did the food you bought not last and you didn't have the money to get more?: Sometimes True Within the past 12 months, did you worry whether your food would run out before you got money to buy more?: Sometimes True Do you have trouble paying for medicines?: Yes Do you have trouble getting transportation to medical appointments?: No Do you have trouble paying your heating and electricity bill?: No Do you have trouble taking care of your child, family member or friend?: No Do you have trouble with day-to-day activities such as bathing, preparing meals, shopping, managing finances, etc.?: No Are you currently unemployed and looking for a job?: No Are you interested in more education?: No Please select the resources that you would like help with: Paying for medicine Currently or been in a relationship where the following occur: No concerns reported THRIVE Score: 2 AUDIT C Alcohol Use Questionnaire (AUDIT-C) 1. How often do you have a drink containing alcohol?: Never 2. How many drinks containing alcohol do you have on a typical day when you are drinking?: 1 or 2 3. How often do you have six or more drinks on one occasion?: Never Total Score: 0 KYRA-7 AMB Questionnaire KYRA-7 Date KYRA - 7 assessed: 03/07/24 Source: Developed by Drs. Martín Jessica, Yolette Gomez, Anthony Diaz and colleagues, with an educational mikayla from [employer]. Review of Systems Const Denies chills, Denies headache(s) and Denies weight loss ENT Denies headache(s) Card Denies chest pain, Denies syncope, Denies irregular heart rhythm and Denies dyspnea Resp Denies chest congestion, Denies cough and Denies dyspnea GI Denies abdominal pain, Denies change in stool character, Denies nausea and Denies vomiting Musc Denies deformity and Denies joint swelling Neuro Denies syncope and Denies headache(s) Physical exam (Primary Care) Vital Signs: Last Vital Signs Pulse 76 06/15/24 09:37 BP 132/72 06/15/24 09:37 Pulse Ox 96 06/15/24 09:37 Oxygen Delivery Method Room Air 06/15/24 09:37 BMI result Body Mass Index 32.5 Tobacco/Smoking Status: Tobacco use Status Tobacco use date assessed 03/07/24 06/15/24 09:43 Patient Tobacco Use Status Former Tobacco user 06/15/24 09:43 Tobacco use type Cigarette 06/15/24 09:43 e-Cigarette/Vaping Use Never Used 06/15/24 09:43 Depression Screening Interpretation: Negative Thrive Assessment: Date of Thrive Assessment Date Thrive assessed 05/05/24 06/15/24 09:43 Currently or been in a relationship where the following occur: No concerns reported Const General: cooperative, comfortable, no acute distress and alert Neck Neck: Yes no lymphadenopathy Thyroid: Thyroid normal Resp Effort & Inspection: normal respiratory effort Auscultation: clear to auscultation bilaterally Percussion: percussion normal Cardio Jugular venous distension: no JVD Palpation: normal PMI Rate: regular rate Rhythm: regular rhythm Heart sounds: S1 normal heart sound present and S2 normal heart sound present GI Inspection: Yes normal to inspection Palpation (GI): No hepatosplenomegaly present Skin General skin exam: no rashes or lesions noted Extrem General: Yes no clubbing, cyanosis or edema Coding Level of Care Code Est Pt Level 3 (52092) Diagnoses Lumbar radiculopathy M54.16 Assessment & Plan Assessment & Plan (1) Lumbar radiculopathy: Code(s): M54.16 - Radiculopathy, lumbar region Category: Medical Plan: ref pain management Orders: Referrals Pain Management Referral M54.16 - Radiculopathy, lumbar region
== END 2024-06-15 11:19 | disposition home or self-care (01) ==
PROVIDERS: PCP Internal Medicine; Visit Provider Internal Medicine
DX: M54.16 Radiculopathy, lumbar region (principal)

== ENCOUNTER → 2024-06-15 09:34 | Outpatient (BNVA) | payer OTHER, SELFPAY | PROVIDERS: PCP Internal Medicine; Visit Provider Internal Medicine ==

== ENCOUNTER 2024-06-21 16:05 | Outpatient (AMB) | payer OTHER, SELFPAY ==
[2024-06-21 16:07] VITALS: BP 132/78; PULSE 65; O2SAT 96; BMI 32.4
--- NOTE | 2024-06-21 16:07 | A.OFFVIS_ITS ---
Vital Signs 06/21/24 16:07 Height 6 ft 1 in Weight 245 lb 4 oz BMI 32.4 BP 132/78 Blood Pressure Location Lt brachial Position Sitting Pulse 65 Pulse Source Pulse Oximeter Pulse Oximetry (%) 96 Oxygen Delivery Method Room Air Intake Visit Reasons: Sleep apnea Allergies No Known Allergies Allergy (Verified 06/21/24 16:10) HPI HPI Sleep apnea: Details: Eric is a pleasant 64 year old male, former smoker, with underlying HTN and cardiomyopathy (2022 EF 35-40%). He has been using CPAP therapy for mild obstructive sleep apnea with AHI of 11. He initially reported issues with humidity and leaking that made compliance difficult. He also noted discomfort overall however he has made adjustments and has been actively working to be more compliant. He had reached out to [employer] to attempt to trial a new mask however has not heard back yet. He is hopeful if he can get a mask that is more comforta ble, so he will be able to reach compliance consistently. Today he presents to review compliance report. [facility] Medical History COVID-19 vaccine series completed Back pain Hypertension Surgical History H/O colonoscopy History of hemorrhoidectomy Family History Father Prostate cancer Mother Diabetes Family/Other Hypertension Diabetes Son No problems noted. Daughter No problems noted. Sister No problems noted. Brother No problems noted. 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 Cognitive needs: No Hearing needs: No Vision needs: No Review of Systems Const Denies chills, Denies excessive sweating, Denies fever(s), Denies headache(s) and Denies night sweats Eyes Denies dry eyes, Denies irritation and Denies itchy eyes ENT Reports Normal hearing present, Denies headache(s), Denies nasal congestion, Denies nasal discharge, Denies post nasal drip and Denies sore throat Card Denies chest pain, Denies chest pain at rest, Denies chest pain with activity, Denies claudication, Denies leg edema, Denies dyspnea, Denies dyspnea on exertion, Denies orthopnea and Denies paroxysmal nocturnal dyspnea Resp Denies chest congestion, Denies cough, Denies excessive phlegm production, Denies pain on inspiration, Denies pain with cough, Denies dyspnea, Denies dyspnea on exertion, Denies stridor and Denies wheezing Musc Denies myalgias Neuro Reports Normal hearing present and Denies headache(s) Endo Denies excessive sweating Mekhi/Lymph Denies lymphadenopathy Aller/Immun Denies itchy eyes, Denies seasonal rhinorrhea and Denies wheezing Physical Exam Vital Signs: Last Vital Signs Pulse 65 06/21/24 16:07 BP 132/78 06/21/24 16:07 Pulse Ox 96 06/21/24 16:07 Oxygen Delivery Method Room Air 06/21/24 16:07 BMI result Body Mass Index 32.4 Const General: cooperative, healthy appearing, comfortable, no acute distress, well developed and alert Nutritional Appearance: obese Orientation/consciousness: patient oriented x3 Limitations: no limitations HEENT Head: Yes normal to inspection, Yes normocephalic and Yes atraumatic Ears: hearing grossly normal bilaterally and external ears normal Eyes General: appearance normal, both eyes and all related structures Eyelids: Yes eyelids normal Sclerae: sclerae normal EOM: EOMs intact bilaterally Neck Neck: Yes normal visual inspection and Yes no lymphadenopathy Lymphatic: no lymphadenopathy noted Chest Chest palpation & inspection: normal inspection of the chest Resp Effort & Inspection: normal respiratory effort, able to speak in complete sentences, no audible wheezes, no cough, no stridor, not tachypneic, no tripod positioning and no use of accessory muscles Auscultation: clear to auscultation bilaterally Cardio Jugular venous distension: no JVD Rate: regular rate Rhythm: regular rhythm Skin Other: warm, dry General skin exam: no rashes or lesions noted Neuro General: patient oriented x3 Cranial nerves: Yes Normal hearing present Cognition (Neuro): normal cognition Gait exam (Neuro): Normal gait present Extrem General: Yes normal to inspection, Yes capillary refill normal, Yes no clubbing, cyanosis or edema and Yes no pedal edema Psych Appearance: grossly normal and well kempt Speech and movement: Normal speech and movement present and Clear speech present Affect: normal affect Attitude: cooperative Thought process: Normal thought process present Thought content: Normal thought content present Insight: Good insight present (Psych) Judgement: Good judgement present (Psych) Assessment & Plan Assessment & Plan (1) Obstructive sleep apnea: Code(s): G47.33 - Obstructive sleep apnea (adult) (pediatric) Category: Medical Plan Reviewed compliance report, revealed 83% usage with >4 hours 46%, minimal leaks and AHI of 0.5. We reviewed criteria for compliance and he is actively working towards this. Discussed with patient trailing different masks to ensure com pliance. He is motivated to be compliant with therapy and will make efforts to ensure this. Will follow up in 3-6 months or sooner if needed. He is aware if he continues to have issues to call the office. All questions were answered and patient is in agreement of plan. Coding Level of Care Code Est Pt Level 3 (00736) Diagnoses Obstructive sleep apnea G47.33
== END 2024-06-21 16:29 | disposition home or self-care (01) ==
PROVIDERS: PCP Internal Medicine; Visit Provider Nurse Practitioner Family
DX: G47.33 Obstructive sleep apnea (adult) (pediatric) (principal)
CPT/HCPCS: 99213

== ENCOUNTER → 2024-06-21 16:05 | Outpatient (BNVA) | payer OTHER, SELFPAY | PROVIDERS: PCP Internal Medicine; Visit Provider Nurse Practitioner Family ==

== ENCOUNTER 2024-06-29 14:11 | Outpatient (AMB) | payer OTHER, SELFPAY ==
[2024-06-29 14:27] VITALS: BP 140/86; PULSE 68; O2SAT 97; BMI 30.3
--- NOTE | 2024-06-29 14:27 | MHC.OFFVIS ---
Vital Signs 06/29/24 14:27 Height 6 ft 1 in Weight 230 lb BMI 30.3 BP 140/86 H Blood Pressure Location Lt brachial Position Sitting Pulse 68 Pulse Source Pulse Oximeter Pulse Oximetry (%) 97 Oxygen Delivery Method Room Air Intake Visit Reasons: Radiculopathy, lumbar region Allergies No Known Allergies Allergy (Verified 06/29/24 14:28) Medication List - Last Reconciled 06/29/24 by Olivia Ramos carvedilol 3.125 mg PO BID famotidine 40 mg PO DAILY fluticasone propionate 50 mcg/actuation 1 spray intranasal DAILY metronidazole 1% (Metrogel) 1 ea topical DAILY tadalafil (Cialis) 10 mg PO DAILY PRN tadalafil 20 mg PO DAILY PRN tramadol 50 mg PO Q8H PRN valsartan 40 mg PO BID HPI Comments Details: Eric is a very pleasant 64-year-old male who presents to the office today for evaluation and management of his chronic lower back pain He reports right lower back pain with radiation down the right leg ongoing for many years. Denies inciting injury, fall, trauma Recently evaluated by neuro spine, he has started physical therapy in his attending now. Physical therapy has provided a little bit of relief. Did discuss surgical options with neuro spine but they recommended conservative treatment and he will follow up if persists Previously patient was on chronic opioids from his primary care doctor, they tapered him off 1 year ago and no longer off for this option Pain today is rated as a 10/10, constant and worse in the night He reports pain is most significant when he is trying to sleep and keeps him up tossing and turning throughout the night Denies red flag symptoms including new loss of bowel, bladder or saddle anesthesia Recent MRI reviewed, results as per below Patient had epidural steroid injections in the past, states the most injection was several years ago and provided him 6 months of pain relief. He is no longer interested in repeating these injections as they short-term relief and do not address the problem. Denies history of chiropractor, acupuncture, massage Has been taking Aleve, Motrin and Tylenol without improvement of his symptoms. In terms of muscle damage condition is described as aching sharp, tingling, stinging Pain is negatively impacting patient's enjoyment of life, general activity, sleep, ability to perform activities of daily living Denies implantable devices pacemaker defibrillator Denies current use of anticoagulants Denies current use of nicotine, tobacco, alcohol or illicit substances [facility] Medical History COVID-19 vaccine series completed Back pain Hypertension Surgical History H/O colonoscopy History of hemorrhoidectomy Family History Father Prostate cancer Mother Diabetes Family/Other Hypertension Diabetes Son No problems noted. Daughter No problems noted. Sister No problems noted. Brother No problems noted. Social History Housing: House Are you a primary acute care nurse practitioner to a significant other at home: No Do you presently have visiting nurse or other home services: No Alcohol intake: never Patient Tobacco Use Status: Former Tobacco user Tobacco use type: Cigarette Cigarette Packs Per Day: 0.5 Years Smoked: 10 e-Cigarette/Vaping Use: Never Used Second Hand Smoke Exposure: No service: Yes Current occupational status: employed Current occupation: [employer] Cognitive needs: No Hearing needs: No Vision needs: No Review of Systems Const All systems reviewed & are unremarkable except as noted in HPI and below Physical Exam Vital Signs: Last Vital Signs Pulse 68 06/29/24 14:27 BP 140/86 H 06/29/24 14:27 Pulse Ox 97 06/29/24 14:27 Oxygen Delivery Method Room Air 06/29/24 14:27 BMI result Body Mass Index 30.3 General: awake, alert, oriented. Answers questions appropriately. Fully engaged in examination. Skin: warm, dry, intact HEENT: Normocephalic. Hearing intact. Cardiac: External chest normal in appearance. Respiratory: No cough, audible wheezing or stridor. Abdomen: without gross distension. MS: No obvious swelling or deformities. Able to stand on bilateral tiptoes and bilateral heels.? Able to transition from sit to stand unassisted. Ambulates with bilaterally normal heel strike and toe off SLR positive the right Negative footdrop, negative clonus Tenderness over midline lumbar vertebrae lumbar paraspinal muscles more significant on the right Nontender over PSIS bilaterally Limited lumbar range of motion secondary to pain Valsalva negative Bilateral lower extremity strength 5/5 Neurological: Oriented to person, place, time and situation. Thought process intact. No gait abnormalities appreciated. Psychiatric: Appropriate mood and affect. Good judgment and insight. Results Reviewed Results Reviewed: 04/05/2024 MRI lumbar spine FINDINGS: There are 5 non-rib bearing lumbar type vertebral bodies. Lumbar alignment is maintained. The vertebral body heights are preserved. There is moderate to severe disc volume loss at L4-L5 and there is moderate disc line loss at L5-S1. Modic type I signal changes at L2-L3 and L4-L5. No additional bone marrow edema. No acute fractures. The vertebral body heights are overall maintained. The conus terminates at the T12-L1 level. Bilateral perinephric stranding. Hypertrophic degenerative changes across the SI joints bilaterally. Please note that axial T2-weighted imaging obtained for this examination is nondiagnostic and the patient could not repeat this series. Very limited assessment of the disc levels. L1-L2: A far right lateral disc osteophyte protrusion results in mild right-sided foraminal encroachment and may contact the extraforaminal right L1 nerve root. L2-L3: Diffuse annular disc bulge and mild bilateral facet arthropathy and prominent dorsal epidural fat results in moderate thecal sac effacement. A right lateral disc osteophyte protrusion and facet arthropathy result in moderate right-sided foraminal stenosis and compression of the extraforaminal right L2 nerve root. L3-L4: There is a diffuse annular disc bulge and there is moderate bilateral facet arthropathy and ligamentum flavum thickening as well as prominent dorsal epidural fat resulting in moderate thecal sac effacement. Disc osteophyte and facet arthropathy result in moderate bilateral foraminal stenosis with mild mass effect on the foraminal and extraforaminal segments of the exiting L3 nerve roots bilaterally. L4-L5: Grade 1 retrolisthesis. Diffuse disc osteophyte complex and bilateral facet arthropathy result in bilateral subarticular zone stenosis with mass effect on the traversing L5 nerve roots bilaterally and moderate bilateral foraminal stenosis with disc osteophyte contacting the extraforaminal L4 nerve roots bilaterally. L5-S1: Diffuse disc osteophyte complex and right greater than left facet arthropathy. Moderate bilateral foraminal stenosis with disc osteophyte resulting in mass effect on the extraforaminal L5 nerve roots bilaterally. IMPRESSION: * Please note that axial T2-weighted imaging obtained for this examination is nondiagnostic and the patient could not repeat this series. Very limited assessment of the disc levels. * At L5-S1, multifactorial degenerative changes result in moderate bilateral foraminal stenosis with disc osteophyte resulting in mass effect on the extraforaminal L5 nerve roots bilaterally. * At L4-L5, grade 1 retrolisthesis and multifactorial degenerative changes result in bilateral subarticular zone stenosis with mass effect on the traversing L5 nerve roots bilaterally and moderate bilateral foraminal stenosis with disc osteophyte contacting the extraforaminal L4 nerve roots bilaterally. * At L3-L4, multifactorial degenerative changes and prominent dorsal epidural fat result in moderate thecal sac effacement as well as moderate bilateral foraminal stenosis with mild mass effect on the foraminal and extraforaminal segments of the exiting L3 nerve roots bilaterally. * At L2-L3, spondylitic changes and epidural lipomatosis result in moderate thecal sac effacement and a right lateral disc osteophyte protrusion and facet arthropathy result in moderate right-sided foraminal stenosis and compression of the extraforaminal right L2 nerve root. Assessment & Plan Assessment & Plan (1) Chronic pain: Code(s): G89.29 - Other chronic pain Category: Medical (2) Lumbar radiculopathy: Code(s): M54.16 - Radiculopathy, lumbar region Category: Medical Plan Patient presents the office today for evaluation and management of his chronic lower back pain History, physical exam and provocative testing consistent with right lumbar radiculopathy Continue with physical therapy as planned Amitriptyline 10 mg p.o. q.h.s. x1 week, then may increase to 20 mg daily at bedtime Methocarbamol 500 mg p.o. t.i.d.. Patient advised on cautions for use Discussed options for treatment including epidural steroid injections, peripheral nerve stimulator, spinal cord stimulation. Patient currently not interested in interventional management. He will consider the options and call the office to let us know if he decides to proceed with any interventional management. Follow up with neuro spine as planned All questions and concerns were answered, patient agrees with the plan. Follow-up after PT, sooner if needed Medications: New amitriptyline 10 mg daily at bedtime x1 week. Then may increase to 20 mg daily at bedtime 20 mg (2 x 10 mg) PO DAILY 60 tabs 0RF methocarbamol No driving while taking this medication. Do no take with alcohol or other [employer] Depressants 500 mg PO TID PRN 90 tabs 1RF muscle spasm Coding Level of Care Code New Pt Level 4 (92300) Complex EM visit Add On G2211 Diagnoses Chronic pain G89.29 Lumbar radiculopathy M54.16
== END 2024-06-29 15:00 | disposition home or self-care (01) ==
PROVIDERS: PCP Internal Medicine; Visit Provider Registered Nurse Emergency
DX: G89.29 Other chronic pain (principal); M54.16 Radiculopathy, lumbar region
CPT/HCPCS: 99204

== ENCOUNTER → 2024-06-29 14:11 | Outpatient (BNVA) | payer OTHER, SELFPAY | PROVIDERS: PCP Internal Medicine; Visit Provider Registered Nurse Emergency ==

== ENCOUNTER 2024-07-06 15:00 | Outpatient (RCR) | payer OTHER, SELFPAY | END 2024-08-11 10:46 | disposition home or self-care (01) | LOC: HO.PT 15:00 | PROVIDERS: PCP Internal Medicine; Visit Provider Physician Assistant | DX: M54.16 Radiculopathy, lumbar region (principal) | CPT/HCPCS: 97110; 97140; 97162 ==

== ENCOUNTER 2024-07-26 14:25 | Outpatient (AMB) | payer OTHER, SELFPAY ==
[2024-07-26 14:36] VITALS: BP 118/60; PULSE 88; BMI 32.3
--- NOTE | 2024-07-26 14:36 | A.OFFVIS_ITS ---
Vital Signs 07/26/24 14:36 Height 6 ft 1 in Weight 244 lb 11.41 oz BMI 32.3 BP 118/60 Blood Pressure Location Lt brachial Position Sitting Pulse 88 Pulse Source Pulse Oximeter Intake Visit Reasons: dawns request cardiomyopathy Allergies No Known Allergies Allergy (Verified 06/29/24 14:28) Medication List - Last Reconciled 07/26/24 by Chilo Martinez MD carvedilol 3.125 mg PO BID famotidine 40 mg PO DAILY fluticasone propionate 50 mcg/actuation 1 spray intranasal DAILY metronidazole 1% (Metrogel) 1 ea topical DAILY tadalafil 20 mg PO DAILY PRN tramadol 50 mg PO Q8H PRN valsartan 40 mg PO BID HPI Comments Details: Eric returns for follow-up. He was initially seen in consultation regarding PVCs. Routine EKG had shown PVCs leading to referral. Patient himself does not have any known cardiac issues like coronary disease or myocardial infarction or cardiomyopathy. He really does not have any clear-cut cardiac symptoms either. However, echocardiogram had shown LV dysfunction. He also underwent cardiac catheterization that shows normal coronary arteries. Subsequent only, we had arrange a cardiac MRI as well as refer to EP but it not appear that he keep those appointments. He states that he was made to wait in [facility] for so long and he got upset and left. I am not sure if that is for the MRI appointment or the EP appointment. Any case, he states he is still feels fine. No new complaints. [facility]LY [facility] Medical History COVID-19 vaccine series completed Back pain Hypertension Surgical History H/O colonoscopy History of hemorrhoidectomy Family History Father Prostate cancer Mother Diabetes Family/Other Hypertension Diabetes Son No problems noted. Daughter No problems noted. Sister No problems noted. Brother No problems noted. 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 Cognitive needs: No Hearing needs: No Vision needs: No Review of Systems Const Denies weakness ENT Denies dizziness Card Denies chest pain, Denies chest pain with activity, Denies syncope, Denies rapid heart rate, Denies pedal edema, Denies edema, Denies leg edema, Denies lightheadedness, Denies palpitations, Denies dyspnea, Denies dyspnea on exertion and Denies orthopnea Resp Denies cough, Denies dyspnea and Denies dyspnea on exertion GI Denies hematochezia and Denies change in stool character Musc Denies abnormal gait, Denies muscle cramps, Denies muscle weakness, Denies numbness, Denies radiating pain into limb and Denies tingling Neuro Denies abnormal gait, Denies dizziness, Denies syncope, Denies numbness, Denies tingling and Denies weakness Endo Denies palpitations Physical Exam Vital Signs: Last Vital Signs Pulse 88 07/26/24 14:36 BP 118/60 07/26/24 14:36 BMI result Body Mass Index 32.3 Const General: comfortable and no acute distress Orientation/consciousness: patient oriented x3 HEENT Other: Unremarkable Head: Yes normal to inspection Neck Neck: Yes normal visual inspection Chest Chest palpation & inspection: normal inspection of the chest Resp Auscultation: clear to auscultation bilaterally Cardio Palpation: normal PMI Heart sounds: S1 normal heart sound present, S2 normal heart sound present, no gallops, no murmurs and no rubs GI Palpation (GI): Soft to palpation Back/Spine/Pelvis Other: unremarkable Skin General skin exam: no rashes or lesions noted Neuro General: patient oriented x3 Extrem General: Yes normal to inspection Psych Mental Status: mental status grossly normal Assessment & Plan Assessment & Plan (1) PVC (premature ventricular contraction): Code(s): I49.3 - Ventricular premature depolarization Category: Medical (2) Cardiomyopathy: Code(s): I42.9 - Cardiomyopathy, unspecified Category: Medical (3) Obesity: Code(s): E66.9 - Obesity, unspecified Category: Medical (4) Obstructive sleep apnea: Code(s): G47.33 - Obstructive sleep apnea (adult) (pediatric) Category: Medical Plan Cardiac studies reviewed. EKG with sinus rhythm at 94/Min; frequent PVCs. Variable morphology. Normal CO and corrected QT. Echocardiogram from August 2023 with LVEF of 35-40%. In the repeat echocardiogram from December, LVEF is 30%. Peak global longitudinal strain-12%. Cardiac catheterization shows normal coronary arteries. Holter shows frequent PVCs with a burden of 16%. Several couplets, triplets, bigeminy, trigeminy, short runs, longest 7 beats. Essentially, obesity, obstructive sleep apnea on CPAP, cardiomyopathy, frequent PVCs. I encouraged the patient to reschedule the cardiac MRI and get it done. I emphasized the importance of this. We will also repeat his Holter. After this, we will discuss again about EP appointment but I am not sure if he will actually keep his appointments as he seems very reluctant to pursue anything. We will see him back in follow-up after the above are completed. In the interim, he may continue Coreg/valsartan. He does not have any clinical symptoms or signs of congestive heart failure. Orders: Orders ECG 3 day holter monitor Today I49.3 - Ventricular premature depolarization Coding Level of Care Code Est Pt Level 4 (29418) Diagnoses PVC (premature ventricular contraction) I49.3 Cardiomyopathy I42.9 Obesity E66.9 Obstructive sleep apnea G47.33
== END 2024-07-26 15:07 | disposition home or self-care (01) ==
PROVIDERS: PCP Internal Medicine; Visit Provider Internal Medicine
DX: I49.3 Ventricular premature depolarization (principal); I42.9 Cardiomyopathy, unspecified; E66.9 Obesity, unspecified; G47.33 Obstructive sleep apnea (adult) (pediatric)
CPT/HCPCS: 99214

== ENCOUNTER → 2024-08-21 12:54 | Outpatient (REF) | payer OTHER, SELFPAY | LOC: HO.CARD 12:54 | PROVIDERS: PCP Internal Medicine; Visit Provider Internal Medicine | DX: I49.3 Ventricular premature depolarization (principal) | CPT/HCPCS: 93242 ==

== ENCOUNTER → 2024-08-21 12:57 | Outpatient (BNV) | payer OTHER, SELFPAY | PROVIDERS: PCP Internal Medicine; Visit Provider Internal Medicine Cardiovascular Disease | DX: I49.3 Ventricular premature depolarization (principal) | CPT/HCPCS: 93244 ==

== ENCOUNTER 2024-09-07 15:48 | Outpatient (REF) | payer OTHER, SELFPAY ==
[2024-09-07 16:49] LABS: Anion Gap 11 (12-20); Blood Urea Nitrogen 12 mg/dL (9-16); Calcium 9.2 mg/dL (8.4-10.2); Carbon Dioxide 26 mmol/L (22-29); Chloride 111 mmol/L (96-108); Estimated Glomerular Filt Rate > 60; Glucose Random 84 mg/dL (60-115); Sodium 144 mmol/L (135-145)
== END 2024-09-07 15:49 | disposition home or self-care (01) ==
LOC: HO.LAB 15:48
PROVIDERS: PCP Internal Medicine; Visit Provider Nurse Practitioner Family
DX: I42.9 Cardiomyopathy, unspecified (principal)
CPT/HCPCS: 36415; 80048

== ENCOUNTER 2024-09-25 14:30 | Outpatient (AMB) | payer OTHER, SELFPAY ==
[2024-09-25 14:43] VITALS: BP 130/72; PULSE 94; TEMP 36.4; O2SAT 94; BMI 32.0
--- NOTE | 2024-09-25 14:43 | A.OFFPC_ITS ---
Vital Signs 09/25/24 14:43 Height 6 ft 1 in Weight 242 lb 4 oz BMI 32.0 BP 130/72 Blood Pressure Location Lt brachial Position Sitting Pulse 94 Pulse Source Pulse Oximeter Temp 97.5 F Temp Source Temporal Artery Scan Pulse Oximetry (%) 94 Oxygen Delivery Method Room Air Intake Visit Reasons: 3 Mo f/u Crib Clerk Required: No Accompanied by: Self / Same As Patient Allergies No Known Allergies Allergy (Verified 09/25/24 14:48) Medication List - Last Reconciled 09/26/24 by Guido Masterson MD carvedilol 3.125 mg PO BID famotidine 40 mg PO DAILY fluticasone propionate 50 mcg/actuation 1 spray intranasal DAILY metronidazole 1% (Metrogel) 1 ea topical DAILY tadalafil 20 mg PO DAILY PRN tramadol 50 mg PO Q8H PRN valsartan 40 mg PO BID Tobacco use date assessed: 09/25/24 Fall risk assessment: No Falls in past year Last assessed Fall Risk: 09/25/24 Dental Screening Dental Screen Date: 09/25/24 Did you have a dental visit in the last 12 months?: No Did you have a dental problem in the last 6 months where you did not have access to dental care?: No Was dental information given to patient?: Patient has dentist HPI 3 Mo f/u HPI Details hypertension on rx; doing well and compliant [facility]LY [facility] Medical History COVID-19 vaccine series completed Back pain Hypertension Surgical History H/O colonoscopy History of hemorrhoidectomy Family History Father Prostate cancer Mother Diabetes Family/Other Hypertension Diabetes Son No problems noted. Daughter No problems noted. Sister No problems noted. Brother No problems noted. 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 1. Little interest or pleasure in doing things: not at all 2. Feeling down, depressed, or hopeless: not at all 3. Trouble falling or staying asleep, or sleeping too much: not at all 4. Feeling tired or having little energy: not at all 5. Poor appetite or overeating: not at all 6. Feeling bad about yourself - or that you are a failure or have let yourself or your family down: not at all 7. Trouble concentrating on things, such as reading the newspaper or watching television: not at all 8. Moving or speaking so slowly that other people could have noticed. Or the opposite - being so fidgety or restless that you have been moving around a lot more than usual: not at all 9. Thoughts that you would be better off or of hurting yourself in some way: not at all Total score: 0 Depression Screening Interpretation: Negative Depression Screening Done: Yes 80957 - PHQ-9 Billing: Yes Source: Developed by Drs. Martín Jessica, Yolette Gomez, Anthony Diaz and colleagues, with an educational mikayla from [employer]. Thrive Questionnaire Date Thrive assessed: 09/25/24 I am a: Patient What is your living situation today?: I have a steady place to live Within the past 12 months, did the food you bought not last and you didn't have the money to get more?: Never true Within the past 12 months, did you worry whether your food would run out before you got money to buy more?: Never true Do you have trouble paying for medicines?: No Do you have trouble getting transportation to medical appointments?: No Do you have trouble paying your heating and electricity bill?: No Do you have trouble taking care of your child, family member or friend?: No Do you have trouble with day-to-day activities such as bathing, preparing meals, shopping, managing finances, etc.?: No Are you currently unemployed and looking for a job?: No Are you interested in more education?: No Please select the resources that you would like help with: None Currently or been in a relationship where the following occur: No concerns reported THRIVE Score: 0 AUDIT C Alcohol Use Questionnaire (AUDIT-C) 1. How often do you have a drink containing alcohol?: Never 2. How many drinks containing alcohol do you have on a typical day when you are drinking?: 1 or 2 3. How often do you have six or more drinks on one occasion?: Never Total Score: 0 KYRA-7 AMB Questionnaire KYRA-7 Date KYRA - 7 assessed: 09/25/24 Feeling nervous, anxious, or on edge: 0 = Not at all Not being able to stop or control worryin = Not at all Worrying too much about different things: 0 = Not at all Trouble relaxin = Not at all Being so restless that it is hard to sit still: 0 = Not at all Becoming easily annoyed or irritable: 0 = Not at all Feeling afraid as if something awful might happen: 0 = Not at all Total KYRA-7 score (0-4 normal; 5-9 mild; 10-14 moderate; 15-21 severe): 0 Source: Developed by Drs. Martín Jessica, Yolette Gomez, Anthony Diaz and colleagues, with an educational mikayla from [employer]. KYRA-7 Assessment Billing KYRA-7 Assessment Tool: KYRA-7 Assessment 23214 Review of Systems Const Denies chills, Denies headache(s) and Denies weight loss ENT Denies headache(s) Card Denies chest pain, Denies syncope, Denies irregular heart rhythm and Denies dyspnea Resp Denies chest congestion, Denies cough and Denies dyspnea GI Denies abdominal pain, Denies change in stool character, Denies nausea and D enies vomiting Musc Denies deformity and Denies joint swelling Neuro Denies syncope and Denies headache(s) Physical exam (Primary Care) Vital Signs: Last Vital Signs Temp 97.5 F 09/25/24 14:43 Pulse 94 09/25/24 14:43 BP 130/72 09/25/24 14:43 Pulse Ox 94 09/25/24 14:43 Oxygen Delivery Method Room Air 09/25/24 14:43 BMI result Body Mass Index 32.0 Tobacco/Smoking Status: Tobacco use Status Tobacco use date assessed 09/25/24 09/25/24 14:50 Patient Tobacco Use Status Former Tobacco user 09/25/24 14:44 Tobacco use type Cigarette 09/25/24 14:44 e-Cigarette/Vaping Use Never Used 09/25/24 14:44 PHQ-9: PHQ-9 Score PHQ-9: Total score 0 09/25/24 14:50 Depression Screening Interpretation: Negative Thrive Assessment: Date of Thrive Assessment Date Thrive assessed 09/25/24 09/25/24 14:44 Currently or been in a relationship where the following occur: No concerns reported Const General: cooperative, comfortable, no acute distress and alert Neck Neck: Yes no lymphadenopathy Thyroid: Thyroid normal Resp Effort & Inspection: normal respiratory effort Auscultation: clear to auscultation bilaterally Percussion: percussion normal Cardio Jugular venous distension: no JVD Palpation: normal PMI Rate: regular rate Rhythm: regular rhythm Heart sounds: S1 normal heart sound present and S2 normal heart sound present GI Inspection: Yes normal to inspection Palpation (GI): No hepatosplenomegaly present Skin General skin exam: no rashes or lesions noted Extrem General: Yes no clubbing, cyanosis or edema Coding Level of Care Code Est Pt Level 3 (22583) Diagnoses Hypertension I10 Additional Codes KYRA-7 Assessment Billing - KYRA-7 Assessment Tool: KYRA-7 Assessment 71982 ([id number]) PHQ-9 - 40167 - PHQ-9 Billing: Yes ([id number]) Assessment & Plan Assessment & Plan (1) Hypertension: Comment: stable; same rx Code(s): I10 - Essential (primary) hypertension Category: Medical Plan: stable; same rx
== END 2024-09-25 16:00 | disposition home or self-care (01) ==
PROVIDERS: PCP Internal Medicine; Visit Provider Internal Medicine
DX: I10 Essential (primary) hypertension (principal)

== ENCOUNTER → 2024-09-25 14:30 | Outpatient (BNVA) | payer OTHER, SELFPAY | PROVIDERS: PCP Internal Medicine; Visit Provider Internal Medicine | DX: I10 Essential (primary) hypertension (principal) | CPT/HCPCS: 96127 ==

== ENCOUNTER → 2024-11-03 15:01 | Outpatient (BNVA) | payer SELFPAY | PROVIDERS: PCP Internal Medicine; Visit Provider Physician Assistant | DX: Z02.79 Encounter for issue of other medical certificate (principal) ==

== ENCOUNTER 2024-12-20 15:57 | Outpatient (AMB) | payer OTHER, SELFPAY ==
--- NOTE | 2024-12-20 16:15 | A.OFFVIS_ITS ---
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 Chair Required: No Shipsmith: Shipsmith offered & declined Accompanied by: Self / Same As Patient Allergies No Known Allergies Allergy (Verified 12/20/24 16:20) Medication List - Last Reconciled 12/20/24 by Lurdes Buck LPN carvedilol 3.125 mg PO BID famotidine 40 mg PO DAILY fluticasone propionate 50 mcg/actuation 1 spray intranasal DAILY metronidazole 1% (Metrogel) 1 ea topical DAILY tadalafil 20 mg PO DAILY PRN tramadol 50 mg PO Q8H PRN valsartan 40 mg PO BID HPI HPI Sleep apnea: Details: Eric is a pleasant 64 year old male, former smoker, with underlying HTN and cardiomyopathy (2022 EF 35-40%). He has been using CPAP therapy consistently for the last three months and feels he is benefitting from therapy. He has CPAP machine, APAP mode with pressures 6-20cm H20. DME is [facility]. Today he presents to review compliance report. He denies any respiratory symptoms at this time. [facility] Medical History COVID-19 vaccine series completed Back pain Hypertension Surgical History H/O colonoscopy History of hemorrhoidectomy Family History Father Prostate cancer Mother Diabetes Family/Other Hypertension Diabetes Son No problems noted. Daughter No problems noted. Sister No problems noted. Brother No problems noted. 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 Cognitive needs: No Hearing needs: No Vision needs: No Review of Systems Const Denies chills, Denies excessive sweating, Denies fever(s), Denies headache(s) and Denies night sweats Eyes Denies dry eyes, Denies irritation and Denies itchy eyes ENT Reports Normal hearing present, Denies headache(s), Denies nasal congestion, Denies nasal discharge, Denies post nasal drip and Denies sore throat Card Denies chest pain, Denies chest pain at rest, Denies chest pain with activity, Denies claudication, Denies leg edema, Denies dyspnea, Denies dyspnea on exertion, Denies orthopnea and Denies paroxysmal nocturnal dyspnea Resp Denies chest congestion, Denies cough, Denies excessive phlegm production, Denies pain on inspiration, Denies pain with cough, Denies dyspnea, Denies dyspnea on exertion, Denies stridor and Denies wheezing Musc Denies myalgias Neuro Reports Normal hearing present and Denies headache(s) Endo Denies excessive sweating Mekhi/Lymph Denies lymphadenopathy Aller/Immun Denies itchy eyes, Denies seasonal rhinorrhea and Denies wheezing Physical Exam Vital Signs: Last Vital Signs Pulse 58 12/20/24 16:17 BP 130/70 12/20/24 16:17 Pulse Ox 96 12/20/24 16:17 Oxygen Delivery Method Room Air 12/20/24 16:17 BMI result Body Mass Index 33.1 Const General: cooperative, healthy appearing, comfortable, no acute distress, well developed and alert Nutritional Appearance: obese Orientation/consciousness: patient oriented x3 Limitations: no limitations HEENT Head: Yes normal to inspection, Yes normocephalic and Yes atraumatic Ears: hearing grossly normal bilaterally and external ears normal Eyes General: appearance normal, both eyes and all related structures Eyelids: Yes eyelids normal Sclerae: sclerae normal EOM: EOMs intact bilaterally Neck Neck: Yes normal visual inspection and Yes no lymphadenopathy Lymphatic: no lymphadenopathy noted Chest Chest palpation & inspection: normal inspection of the chest Resp Effort & Inspection: normal respiratory effort, able to speak in complete sentences, no audible wheezes, no cough, no stridor, not tachypneic, no tripod positioning and no use of accessory muscles Auscultation: clear to auscultation bilaterally Cardio Jugular venous distension: no JVD Rate: regular rate Rhythm: regular rhythm Skin Other: warm, dry General skin exam: no rashes or lesions noted Neuro General: patient oriented x3 Cranial nerves: Yes Normal hearing present Cognition (Neuro): normal cognition Gait exam (Neuro): Normal gait present Extrem General: Yes normal to inspection, Yes capillary refill normal, Yes no clubbing, cyanosis or edema and Yes no pedal edema Psych Appearance: grossly normal and well kempt Speech and movement: Normal speech and movement present and Clear speech present Affect: normal affect Attitude: cooperative Thought process: Normal thought process present Thought content: Normal thought content present Insight: Good insight present (Psych) Judgement: Good judgement present (Psych) Assessment & Plan Assessment & Plan (1) Obstructive sleep apnea: Code(s): G47.33 - Obstructive sleep apnea (adult) (pediatric) Category: Medical Plan Reviewed compliance report for the last three months which revealed usage with >4 hours 88%, moderate leaks and AHI of 0.3. He reports a lot of tossing and turning at night likely resulting in the leaking. Overall he is doing quite well with therapy and is motivated to continue to use. He is aware if he continues to have issues to call the office/[facility]. All questions were answered and patient is in agreement of plan. Will follow up in 3-6 months or sooner if needed. Coding Level of Care Code Est Pt Level 3 (04381) Diagnoses Obstructive sleep apnea G47.33
[2024-12-20 16:17] VITALS: BP 130/70; PULSE 58; O2SAT 96; BMI 33.1
--- OUTSIDE RECORDS SUMMARY | 2024-12-20 18:11 | XMS_ITS | Clinical Summary ---
Author Organization [facility] ity Address [address] [place] [address] Care Team Providers Care Health Actuary Name Role Phone Roxanne Arredondo MD Primary Care Provider Unav ailable Medical History Medical History Date Comments Sciatica 01/20/2006 DX:Sciatica External hemorrhoids without mention of complication 01/20/2006 DX:External hemorrhoids with out mention of complication Family History Relation Name Status Comments Brother Alive x6, all healthy Father (Age 73) prostate C A Mother Alive Diabetes, HTN Sister Alive x5, oldest has HTN Social History Tobacco Use Types Packs/Day Years Used Date Smoking Tobacco: Former Cigarettes Q uit: 09/05/2003 Alcohol Use Standard Drinks/Week Comments No 0 (1 standard drink = 0.6 oz pur e alcohol) Sex and Gender Information Value Date Recorded Sex Assigned at Not on file Legal Sex Male 8:31 PM EST Gender Identity Not on file Sexual Orientation Not on file Obstetrics History Plan of Treatment Health Maintenance Due Date Last Done Comments DTaP,Tdap,and Td Vaccines (2 - Td or Tdap) 10/24/2009 10/24/1999 Pneumococcal Vaccine: 50+ Ye ars (1 of 1 - PCV) 2010 Zoster Vaccines (1 of 2) 2010 Cholesterol Screening (Lipid Panel) 08/08/2022 Colorectal Cancer Screening: Colonoscopy 08/08/2022 HIV Screening 08/08/2022 COVID-19 Vaccine ( - 2023-2 5 season) 2024 Influenza Vaccine (Season Ended) 2025 07/14/20 05 RSV Immunization Adult Patie nts (1 - 1-dose 75+ series) 2035 HIB Vaccines Aged Out No longer eligi ble based on patient's age to complete this topic HPV Vaccines Aged Out No longer eligi ble based on patient's age to complete this topic Hepatitis A Vaccines Aged Out No long er eligible based on patient's age to complete this topic Hepatitis B Vaccines Aged Out No long er eligible based on patient's age to complete this topic IPV Vaccines Aged Out No longer eligi ble based on patient's age to complete this topic MMR Vaccines Aged Out No longer eligi ble based on patient's age to complete this topic Meningococcal ACWY Vaccine Aged Out N o longer eligible based on patient's age to complete this topic Meningococcal B Vaccine Aged Out No l onger eligible based on patient's age to complete this topic Pneumococcal Vaccine: Pediat rics (0 to 5 Years) and At-Risk Patients (6 to 64 Years) Aged Out No longer eligi ble based on patient's age to complete this topic RSV Immunization Patients Un yana 20 months Aged Out No longer eligible b ased on patient's age to complete this topic Varicella Vaccines Aged Out No longer eligible based on patient's age to complete this topic Care Teams Health Actuary Relationship Specialty Start Date End Date Roxanne Arredondo MD PCP - General 08/11/1999
--- OUTSIDE RECORDS SUMMARY | 2024-12-20 18:11 | XMS_ITS | Data Portability ---
Author Organization [facility] [address] Address [address] [place] [address] Assessment No assessment recorded. Plan of Treatment Reminders Order Date Submit Date Provider Last Modified By Organization Details Last Modified Time Details Appointments None record ed. Lab None record ed. Referral None record ed. Procedures None record ed. Surgeries None record ed. Imaging None record ed. Medication Orders None record ed. Patient TargetsNo targets recorded. Patient Instructions Encounter Date Encounter Id Patient Instructions Last Modified By Organization Details Last Modified Time 07/09/2023 [id number] This physical does not replace the annual physical to be performed by your PCP. There may be additional screening tests that they will perform that we do not in the urgent care setting. Failure to follow up as recommended may result in significant adverse health consequences. ? If your symptoms worsen or you develop new symptoms that concern you, go to the emergency department for further evaluation. [email or web address] Not available 07/09/2023 16:25:30 Reason for Referral None Reported. Procedures Surgical History Date Name Laterality Status Provider Name and Address Organization Details Recorded Time OC-DOT PHYSICAL completed [facility] 07/09/2023 16:03:04 Imaging Results None recorded. Procedure Notes None recorded. Medical Equipment None Reported. Medications Name Sig Start Date Stop Date Status Note LastModified by Organization Details LastModified Time sildenafil 50 mg tablet TAKE 1 TABLET NEEDED FOR SEXUAL ACTIVITY. ADMINISTER 30 MINUTES TO 4 HOURS BEFORE ACTIVTY. active Not Available Not Available No t Available famotidine 40 mg tablet TAKE 1 TABLET BY MOUTH EVERY EVENING active Not Available Not Available No t Available oxycodone-ac etaminophen 5 mg-325 mg tablet TAKE 1 TABLET BY MOUTH EVERY 8 HOURS NEEDED FOR PAIN active Not Available Not Available No t Available lisinopril 10 mg tablet TAKE 1 TABLET BY MOUTH DAILY active Not Available Not Available Not Available tadalafil 10 mg tablet active Not Available Not Available No t Available metronidazol e 1 % topical gel APPLY TOPICALLY TO THE AFFECTED AREA DAILY active Not Available Not Available N ot Available Vitals None Recorded Social History None recorded. Functional Status None recorded. Mental Status None recorded. Family History Nothing Reported. Medical History No medical history recorded. Past Encounters Encounter ID Performer Location Encounter Start Date Encounter Closed Date Diagnosis/Indication Diagnosis SNOMED-CT Code Diagnosis ICD10 Code Diagnosis Note [id number] [address] [facility] [place] [address] 07/18/2021 16:01:20 07/18/2021 17:11:12 [id number] [address] [facility] [place] [address] 07/26/2016 12:11:49 07/26/2016 13:18:19 [id number] Zack Corcoran, SUPERVISOR [employer] PREPARATION [address] [facility] [place] [address] 07/09/2023 15:46:59 07/09/2023 17:13:54 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 [id number] Z02.4 Physical examination 588 0005 Z02.4 History an d physical examination, pre-employment [id number] Z02.1 Health Concerns Section Related Observation LastModified by Organization Detai ls LastModified Time None Recorded Concern Status LastModified by Organization Details LastModified Time None Recorded Advance Directives Directive None Recorded Payers Encounter Date Sequence Insurance Name Policy Number Policy Yi Covered Member ID Yi Member ID Guarantor Name 07/26/2016 1 [facility] (INDEMNITY) [id number] Eric Najera [id number] Eric Najera 07/09/2023 OC-PAY AT TIME OF SERVICE 2022 Eric NAJERA JUAN CARLOS DANIA JUAN CARLOS Eric Najera
== END 2024-12-20 16:37 | disposition home or self-care (01) ==
PROVIDERS: PCP Internal Medicine; Visit Provider Nurse Practitioner Family
DX: G47.33 Obstructive sleep apnea (adult) (pediatric) (principal)
CPT/HCPCS: 99213

== ENCOUNTER 2024-12-25 13:34 | Outpatient (AMB) | payer OTHER, SELFPAY ==
--- NOTE | 2024-12-25 13:36 | AM.OFFWIN_ITS ---
Intake Vital Signs 3 12/25/24 13:38 Weight 244 lb BP 124/76 Blood Pressure Location Rt brachial Position Sitting Pulse 74 Pulse Source Pulse Oximeter Pulse Oximetry (%) 98 Oxygen Delivery Method Room Air Intake Visit Reasons: EP RT hand/thumb pain Intake Note: Patient here for right thumb pain that has been present for a couple of months. Patient Tobacco Use Status: Former Tobacco user Allergies No Known Allergies Allergy (Verified 12/25/24 13:38) Do you need a note to return to daycare/school/sports/work: No HPI HPI Comments 2 History of Present Illness0 Details 64 y/o Male patient who presents to the walk in clinic with c/o Right Hand/Thumb pain for months now. Reports that Pain is located at the CMC joint junction and radiates pt the Thumb. Denies trauma or injury. 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 [facility] Medical History (Updated 12/25/24 @ 14:01 by Mildred Davis NP) Muscle strain, hand COVID-19 vaccine series completed Back pain Hypertension Surgical History H/O colonoscopy History of hemorrhoidectomy Family History Father Prostate cancer Mother Diabetes Family/Other Hypertension Diabetes Son No problems noted. Daughter No problems noted. Sister No problems noted. Brother No problems noted. 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 Cognitive needs: No Hearing needs: No Vision needs: No Review of Systems Const All systems reviewed & are unremarkable except as noted in HPI and below Physical Exam Vital Signs: Last Vital Signs Pulse 74 12/25/24 13:38 BP 124/76 12/25/24 13:38 Pulse Ox 98 12/25/24 13:38 Oxygen Delivery Method Room Air 12/25/24 13:38 Const General: no acute distress Nutritional Appearance: obese Orientation/consciousness: patient oriented x3 Neuro General: patient oriented x3, gait normal and moves all extremities Extrem Right upper extremity: normal to inspection, full ROM and Extremity exam: right hand Details: tenderness Location: of the thumb Location: at the MCP joint, at the proximal phalanx and on the palmar aspect, normal ROM of fingers and no swelling; no ecchymosis and no crepitus Left upper extremity: normal to inspection and full ROM Hand/finger images: 2 1. Right CMC joint TTP, No swelling, normal skin color. Psych Speech and movement: Normal speech and movement present Assessment & Plan Assessment & Plan (1) Muscle strain, hand: Code(s): S66.919A - Strain of unspecified muscle, fascia and tendon at wrist and hand level, unspecified hand, initial encounter Qualifiers: Encounter type: initial encounter Laterality: right Qualified Code(s): S66.911A - Strain of unspecified muscle, fascia and tendon at wrist and hand level, right hand, initial encounter Plan: Ordered Xray Hand. NSAIDs for pain relief. Educated on Hand exercise: Make a gentle fist with your thumb across your fingers. Hold for 30 to 60 seconds, then spread your fingers wide. Repeat 5 times. F/U with PCP. Orders: Orders 2 XR hand RT 2V Today S66.919A - Strain of unspecified muscle, fascia and tendon at wrist and hand level, unspecified hand, initial encounter Coding Level of Care Code Est Pt Level 4 (31743) Diagnoses Strain of right hand, initial encounter S66.911A Encounter type: initial encounter Laterality: right Time Spent (min) 20
--- OUTSIDE RECORDS SUMMARY | 2024-12-25 13:36 | XMS_ITS | Data Portability ---
Author Organization [facility] [address] Address [address] [place] [address] Assessment No assessment recorded. Plan of Treatment [...] By Organization Details Last Modified Time 07/09/2023 [id number] This physical does not replace the annual [...] SNOMED-CT Code Diagnosis ICD10 Code Diagnosis Note [id number] [address] [facility] [place] [address] 07/18/2021 16:01:20 07/18/2021 17:11:12 [id number] [address] [facility] [place] [address] 07/26/2016 12:11:49 07/26/2016 13:18:19 [id number] Zack Corcoran, FIELD SERVICE TECH [address] 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 [id number] Z02.4 Physical examination 588 0005 Z02.4 History an d physical examination, pre-employment [id number] Z02.1 Health Concerns Section Related Observation LastModified by Organization Detai ls LastModified Time None Recorded Concern Status LastModified by Organization Details LastModified Time None Recorded Advance Directives Directive None Recorded Payers Encounter Date Sequence Insurance Name Policy Number Policy Yi Covered Member ID Yi Member ID Guarantor Name 07/26/2016 1 [facility] (INDEMNITY) [id number] Eric Najera [id number] Eric Najera 07/09/2023 OC-PAY AT TIME OF SERVICE 2022 Eric NAJERA JUAN CARLOS DANIA JUAN CARLOS Eric Najera
--- OUTSIDE RECORDS SUMMARY | 2024-12-25 13:37 | XMS_ITS | Clinical Summary ---
Author Organization [facility] ity Address [address] [place] [address] Care Team Providers Care Brick Off Bearer Name Role Phone Roxanne Arredondo MD Primary [...] age to complete this topic Care Teams Brick Off Bearer Relationship Specialty Start Date End Date Roxanne Arredondo MD PCP - General 08/11/1999
[2024-12-25 13:38] VITALS: BP 124/76; PULSE 74; O2SAT 98
== END 2024-12-25 14:08 | disposition home or self-care (01) ==
PROVIDERS: PCP Internal Medicine; Visit Provider Nurse Practitioner Family
DX: S66.911A Strain of unspecified muscle, fascia and tendon at wrist and hand level, right hand, initial encounter (principal)

== ENCOUNTER 2024-12-25 13:34 | Outpatient (REF) | payer OTHER, SELFPAY ==
--- NOTE | ~2024-12-25 | XR_ITS ---
CLINICAL HISTORY: S66.919A - Strain of unspecified muscle, fascia and tendon at wrist and ... --- Add itional Notes or Special Instructions: 64 y o Male patient who presents to the clinic with c o Right hand pain for months now. Pain located at the right CMC joint junction. Three views of the right hand. COMPARISON: None FINDINGS: Distal radius and ulna appear intact. Mild degenerative changes of the 1st CMC joint. Metacarpals and phalanges appear intact. Interphalangeal joint space narrowing with osteophytes. No radiopaque foreign body. IMPRESSION: 1. No radiographic evidence of acute injury to the right hand. 2. 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 This document has been electronically signed by: Nader Hassan MD on 12/25/2024 17:06:35
== END 2024-12-25 13:35 | disposition home or self-care (01) ==
LOC: HO.HMGCX 13:34
PROVIDERS: PCP Internal Medicine; Visit Provider Nurse Practitioner Family
DX: S66.911A Strain of unspecified muscle, fascia and tendon at wrist and hand level, right hand, initial encounter (principal)
CPT/HCPCS: 73130

== ENCOUNTER → 2024-12-25 13:56 | Outpatient (BNV) | payer OTHER, SELFPAY | PROVIDERS: PCP Internal Medicine; Visit Provider Radiology Diagnostic Radiology | DX: M79.641 Pain in right hand (principal) | CPT/HCPCS: 73130 ==

== ENCOUNTER 2025-01-09 16:21 | Outpatient (AMB) | payer SELFPAY ==
[2025-01-09 16:25] VITALS: BP 110/80; PULSE 77; O2SAT 96; BMI 32.2
--- NOTE | 2025-01-09 16:25 | A.OFFPC_ITS ---
Vital Signs 01/09/25 16:25 Height 6 ft 1 in Weight 244 lb 2 oz BMI 32.2 BP 110/80 Blood Pressure Location Lt brachial Position Sitting Pulse 77 Pulse Source Pulse Oximeter Pulse Oximetry (%) 96 Oxygen Delivery Method Room Air Intake Visit Reasons: JEWELS Dr Masterson Soil Technician Required: No Accompanied by: Self / Same As Patient Allergies No Known Allergies Allergy (Verified 01/09/25 16:54) Medication List - Last Reconciled 01/09/25 by Abdi Hutchinson MD carvedilol 3.125 mg PO BID famotidine 40 mg PO DAILY fluticasone propionate 50 mcg/actuation 1 spray intranasal DAILY metronidazole 1% (Metrogel) 1 ea topical DAILY tadalafil 20 mg PO DAILY PRN tramadol 50 mg PO Q8H PRN valsartan 40 mg PO BID Tobacco use date assessed: 01/09/25 Fall risk assessment: No Falls in past year Last assessed Fall Risk: 01/09/25 Dental Screening Dental Screen Date: 01/09/25 Did you have a dental visit in the last 12 months?: Yes Did you have a dental problem in the last 6 months where you did not have access to dental care?: No HPI JEWELS Dr Masterson HPI Details Patient comes in today for his follow up visit - is transferring over from Dr. Masterson, who retired from the practice a couple of months ago Patient states that he feels okay except for (+) pain over the base of his right thumb - states that this has been bothering him for a while now and is starting to interfere with his daily activities as he is right-handed He does not recall any recent injury or trauma to his hand/thumb but has recently felt a small knot at the base of his thumb and notes increased pain when he applies pressure on it He denies any headaches or dizziness Denies any chest pains, no SOB No nausea/vomiting, no abdominal pain No change in bowel habits noted He has no recent follow up labs done [facility] Medical History (Updated 01/10/25 @ 10:04 by Abdi Hutchinson MD) Obesity (BMI 30-39.9) Allergic rhinitis GERD without esophagitis Lumbar degenerative disc disease Essential hypertension Muscle strain, hand COVID-19 vaccine series completed Back pain Hypertension Surgical History H/O colonoscopy History of hemorrhoidectomy Family History Father Prostate cancer Mother Diabetes Family/Other Hypertension Diabetes Son No problems noted. Daughter No problems noted. Sister No problems noted. Brother No problems noted. 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 1. Little interest or pleasure in doing things: several days 2. Feeling down, depressed, or hopeless: several days 3. Trouble falling or staying asleep, or sleeping too much: not at all 4. Feeling tired or having little energy: several days 5. Poor appetite or overeating: not at all 6. Feeling bad about yourself - or that you are a failure or have let yourself or your family down: not at all 7. Trouble concentrating on things, such as reading the newspaper or watching television: not at all 8. Moving or speaking so slowly that other people could have noticed. Or the opposite - being so fidgety or restless that you have been moving around a lot more than usual: not at all 9. Thoughts that you would be better off or of hurting yourself in some way: not at all Total score: 3 Depression Screening Interpretation: Negative Depression Screening Done: Yes 73107 - PHQ-9 Billing: Yes Source: Developed by Drs. Martín Jessica, Yolette Gomez, Anthony Diaz and colleagues, with an educational mikayla from [employer]. Thrive Questionnaire Date Thrive assessed: 01/09/25 I am a: Patient What is your living situation today?: I have a steady place to live Within the past 12 months, did the food you bought not last and you didn't have the money to get more?: Never true Within the past 12 months, did you worry whether your food would run out before you got money to buy more?: Never true Do you have trouble paying for medicines?: No Do you have trouble getting transportation to medical appointments?: No Do you have trouble paying your heating and electricity bill?: No Do you have trouble taking care of your child, family member or friend?: No Do you have trouble with day-to-day activities such as bathing, preparing meals, shopping, managing finances, etc.?: No Are you currently unemployed and looking for a job?: No Are you interested in more education?: No Please select the resources that you would like help with: None Currently or been in a relationship where the following occur: No concerns reported THRIVE Score: 0 AUDIT C Alcohol Use Questionnaire (AUDIT-C) 1. How often do you have a drink containing alcohol?: Never 3. How often do you have six or more drinks on one occasion?: Never Total Score: 0 Score Reviewed/Action Taken: Yes KYRA-7 AMB Questionnaire KYRA-7 Date KYRA - 7 assessed: 01/09/25 Feeling nervous, anxious, or on edge: 0 = Not at all Not being able to stop or control worryin = Not at all Worrying too much about different things: 0 = Not at all Trouble relaxin = Not at all Being so restless that it is hard to sit still: 0 = Not at all Becoming easily annoyed or irritable: 0 = Not at all Feeling afraid as if something awful might happen: 0 = Not at all Total KYRA-7 score (0-4 normal; 5-9 mild; 10-14 moderate; 15-21 severe): 0 Source: Developed by Drs. Martín Jessica, Yolette Gomez, Anthony Diaz and colleagues, with an educational mikayla from [employer]. Review of Systems Const Denies chills, Denies fatigue, Denies fever(s) and Denies headache(s) ENT Denies dysphagia, Denies dizziness, Denies otalgia, Denies headache(s), Denies neck pain, Denies odynophagia and Denies sore throat Card Denies chest pain, Denies palpitations and Denies dyspnea Resp Denies chest congestion, Denies cough and Denies dyspnea GI Denies abdominal pain, Denies constipation, Denies dysphagia, Denies heartburn, Denies diarrhea, Denies nausea, Denies odynophagia and Denies vomiting Denies difficulty urinating, Denies dysuria, Denies nocturia and Denies urinary frequency Musc Reports back pain (over the lower back - chronic), Reports arthralgias (over the base of the right thumb - see HPI) and Denies neck pain Skin/Breast Denies rash Neuro Denies dizziness and Denies headache(s) Psych Denies anxiety and Denies depression Endo Denies fatigue and Denies palpitations Physical exam (Primary Care) Vital Signs: Last Vital Signs Pulse 77 01/09/25 16:25 BP 110/80 01/09/25 16:25 Pulse Ox 96 01/09/25 16:25 Oxygen Delivery Method Room Air 01/09/25 16:25 BMI result Body Mass Index 32.2 Tobacco/Smoking Status: Tobacco use Status Tobacco use date assessed 01/09/25 01/09/25 16:31 Patient Tobacco Use Status Former Tobacco user 01/09/25 16:31 Tobacco use type Cigarette 01/09/25 16:31 e-Cigarette/Vaping Use Never Used 01/09/25 16:31 PHQ-9: PHQ-9 Score PHQ-9: Total score 3 01/09/25 16:56 Depression Screening Interpretation: Negative Thrive Assessment: Date of Thrive Assessment Date Thrive assessed 01/09/25 01/09/25 16:31 Currently or been in a relationship where the following occur: No concerns r eported Const General: no acute distress and alert HENMT Ears: TM's normal bilaterally and EAC's normal Throat: Yes posterior oropharynx normal and Yes tonsils normal (no TP congestion) Neck Neck: Yes supple and No lymphadenopathy Thyroid: Thyroid normal Resp Auscultation: clear to auscultation bilaterally, no rales and no wheezes Cardio Rate: regular rate Rhythm: regular rhythm Heart sounds: no murmurs GI Palpation (GI): Soft to palpation and nontender Auscultation: normal bowel sounds General: No CVA tenderness Back/Spine/Pelvis Back: No CVA tenderness Thoracic/Lumbar Spine: lumbar spinal tenderness Skin Rashes: no rashes Extrem General: Yes no clubbing, cyanosis or edema Coding Level of Care Code Est Pt Level 4 (05680) Diagnoses Essential hypertension I10 Cardiomyopathy, unspecified type I42.9 Cardiomyopathy type: unspecified Degeneration of intervertebral disc of lumbar region with discogenic back pain M51.360 Disc-related pain type: discogenic back pain only Pain of right thumb M79.644 Obstructive sleep apnea G47.33 GERD without esophagitis K21.9 Allergic rhinitis, unspecified seasonality, unspecified trigger J30.9 Allergic rhinitis trigger: unspecified Allergic rhinitis seasonality: unspecified Obesity (BMI 30-39.9) E66.9 Additional Codes PHQ-9 - 31574 - PHQ-9 Billing: Yes ([id number]) Assessment & Plan Assessment & Plan (1) Essential hypertension: Code(s): I10 - Essential (primary) hypertension Category: Medical Plan: Reinforced low sodium diet - goal is systolic BP of at least 130 mm or less Continue Carvedilol 3.125 mg BID and Valsartan 40 mg BID Patient is reminded to continue monitoring his blood pressure regularly (2) Cardiomyopathy: Code(s): I42.9 - Cardiomyopathy, unspecified Category: Medical Qualifiers: Cardiomyopathy type: unspecified Qualified Code(s): I42.9 - Cardiomyopathy, unspecified Plan: He likely has hypertensive cardiomyopathy His most recent echocardiogram done in December 2023 revealed (+) severe LV dysfunction, with EF at around 30% He underwent cardiac catheterization in September 2023 that shows normal coronary arteries EKG (+) for frequent PVCs Continue Carvedilol 3.125 mg BID Follow up with cardiology as scheduled (3) Lumbar degenerative disc disease: Code(s): M51.369 - Other intervertebral disc degeneration, lumbar region without mention of lumbar back pain or lower extremity pain Category: Medical Qualifiers: Disc-related pain type: discogenic back pain only Qualified Code(s): M51.360 - Other intervertebral disc degeneration, lumbar region with discogenic back pain only Plan: Reinforced activity and weight-lifting restrictions Lumbar spine MRI done last year on 04/05/2024 revealed (+) multilevel degenerative or spondylotic disc changes resulting in varying degrees of foraminal stenosis and mass effect on the individual levels (see complete report below for details) He is currently scheduled to see neurosurgery for further evaluation and recommendations with regards to his lumbar spine MRI findings Continue Tramadol 50 mg TID PRN for pain Lumbar spine MRI on 04/05/2024: At L5-S1, multifactorial degenerative changes result in moderate bilateral foraminal stenosis with disc osteophyte resulting in mass effect on the extraforaminal L5 nerve roots bilaterally. * At L4-L5, grade 1 retrolisthesis and multifactorial degenerative changes result in bilateral subarticular zone stenosis with mass effect on the traversing L5 nerve roots bilaterally and moderate bilateral foraminal stenosis with disc osteophyte contacting the extraforaminal L4 nerve roots bilaterally. * At L3-L4, multifactorial degenerative changes and prominent dorsal epidural fat result in moderate thecal sac effacement as well as moderate bilateral foraminal stenosis with mild mass effect on the foraminal and extraforaminal segments of the exiting L3 nerve roots bilaterally. * At L2-L3, spondylitic changes and epidural lipomatosis result in moderate thecal sac effacement and a right lateral disc osteophyte protrusion and facet arthropathy result in moderate right-sided foraminal stenosis and compression of the extraforaminal right L2 nerve root. (4) Pain of right thumb: Code(s): M79.644 - Pain in right finger(s) Category: Medical Plan: Have advised patient that his current right thumb pain is mostly consistent with either osteoarthritis of the proximal MCP joint or tenosynovitis Will refer him to orthopedics for further evaluation and management (5) Obstructive sleep apnea: Code(s): G47.33 - Obstructive sleep apnea (adult) (pediatric) Category: Medical Plan: Continue using his CPAP device when sleeping at night daily - patient reports (+) significant improvement of his symptoms overall with the use of his CPAP device Follow up with Sleep Medicine as scheduled (6) GERD without esophagitis: Code(s): K21.9 - Gastro-esophageal reflux disease without esophagitis Category: Medical Plan: Dietary restrictions reinforced Continue Famotidine 40 mg QD (7) Allergic rhinitis: Code(s): J30.9 - Allergic rhinitis, unspecified Category: Medical Qualifiers: Allergic rhinitis trigger: unspecified Allergic rhinitis seasonality: unspecified Qualified Code(s): J30.9 - Allergic rhinitis, unspecified Plan: Continue Fluticasone 50 mcg nasal spray QD PRN (8) Obesity (BMI 30-39.9): Code(s): E66.9 - Obesity, unspecified Category: Medical Plan: Reinforced diet/exercise as tolerated/lose weight Plan Follow up in 4 months Orders: Orders TSH reflex Free T4 4 Months E78.00 - Pure hypercholesterolemia, unspecified Complete Blood Count Auto Diff 4 Months D64.9 - Anemia, unspecified Comprehensive Wayside. Panel Fast 4 Months E78.00 - Pure hypercholesterolemia, unspecified Lipid Panel 4 Months E78.00 - Pure hypercholesterolemia, unspecified UA CC w/rflx Micro + Cult 4 Months R30.0 - Dysuria Vitamin D 25-OH Total 4 Months E55.9 - Vitamin D deficiency, unspecified Referrals Orthopedics Referral M65.90 - Unspecified synovitis and tenosynovitis, unspecified site, M79.644 - Pain in right finger(s)
--- OUTSIDE RECORDS SUMMARY | 2025-01-09 17:05 | XMS_ITS | Data Portability ---
Author Organization [facility] [address] Address [address] [place] [address] Assessment No assessment recorded. Plan of Treatment [...] By Organization Details Last Modified Time 07/09/2023 [id number] This physical does not replace the annual [...] SNOMED-CT Code Diagnosis ICD10 Code Diagnosis Note [id number] [address] [facility] [place] [address] 07/18/2021 16:01:20 07/18/2021 17:11:12 [id number] [address] [place] [address] 07/26/2016 12:11:49 07/26/2016 13:18:19 [id number] Zack Corcoran, PRINTER [employer] [address] [facility] [place] [address] 07/09/2023 15:46:59 07/09/2023 17:13:54 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 [id number] Z02.4 Physical examination 588 0005 Z02.4 History an d physical examination, pre-employment [id number] Z02.1 Health Concerns Section Related Observation LastModified by Organization Detai ls LastModified Time None Recorded Concern Status LastModified by Organization Details LastModified Time None Recorded Advance Directives Directive None Recorded Payers Encounter Date Sequence Insurance Name Policy Number Policy Yi Covered Member ID Yi Member ID Guarantor Name 07/26/2016 1 [facility] (INDEMNITY) [id number] Eric Najera [id number] Eric Najera 07/09/2023 OC-PAY AT TIME OF SERVICE 2022 Eric NAJERA JUAN CARLOS DANIA JUAN CARLOS Eric Najera
--- OUTSIDE RECORDS SUMMARY | 2025-01-09 17:05 | XMS_ITS | Clinical Summary ---
Author Organization [facility] it Address [address] [place] [address] Care Team Providers Care Manager Lighting Name Role Phone Roxanne Arredondo MD Primary [...] 2010 Zoster Vaccines (1 of 2) 2010 COVID-19 Vaccine ( - 2023-2 5 season) [...] age to complete this topic Care Teams Manager Lighting Relationship Specialty Start Date End Date Roxanne Arredondo MD PCP - General 08/11/1999
== END 2025-01-09 17:07 | disposition home or self-care (01) ==
PROVIDERS: PCP Internal Medicine; Visit Provider Internal Medicine
DX: I10 Essential (primary) hypertension (principal); I42.9 Cardiomyopathy, unspecified; M51.360 Other intervertebral disc degeneration, lumbar region with discogenic back pain only; M79.644 Pain in right finger(s); G47.33 Obstructive sleep apnea (adult) (pediatric); K21.9 Gastro-esophageal reflux disease without esophagitis; J30.9 Allergic rhinitis, unspecified; E66.9 Obesity, unspecified

== ENCOUNTER → 2025-01-09 16:21 | Outpatient (BNVA) | payer OTHER, SELFPAY | PROVIDERS: PCP Internal Medicine; Visit Provider Internal Medicine | DX: I10 Essential (primary) hypertension (principal); I42.9 Cardiomyopathy, unspecified; M51.360 Other intervertebral disc degeneration, lumbar region with discogenic back pain only; M79.644 Pain in right finger(s); G47.33 Obstructive sleep apnea (adult) (pediatric); K21.9 Gastro-esophageal reflux disease without esophagitis; J30.9 Allergic rhinitis, unspecified; E66.9 Obesity, unspecified; Z79.899 Other long term (current) drug therapy | CPT/HCPCS: 96127; 99212 ==

== ENCOUNTER 2025-01-23 13:31 | Outpatient (AMB) | payer OTHER, SELFPAY ==
--- NOTE | 2025-01-23 13:37 | A.OFFVIS_ITS ---
Vital Signs 01/23/25 13:38 Height 6 ft 1 in Weight 244 lb BMI 32.2 Intake Visit Reasons: New prob Pain in right finger Intake Note: Eric 64 yr old right hand dominant presents today for a new problem visit for his right finger pain. States no injury to thumb, Pain is mainly in the base of thumb. patient states it locked for the first time yesterday. also he has some n umbness and little tingling. Allergies No Known Allergies Allergy (Verified 01/23/25 13:41) HPI HPI New prob Pain in right finger: Details: Eric 64 yr old right hand dominant presents today for a new problem visit for his right finger pain. States no injury to thumb, Pain is mainly in the base of thumb. patient states it locked for the first time yesterday. Patient reports that he air has been ongoing locking and catching every single time he flexes his thumb since that point. also he has some numbness and little tingling. [facility] Medical History (Updated 01/23/25 @ 17:37 by MALCOLM Jauregui) Obesity (BMI 30-39.9) Allergic rhinitis GERD without esophagitis Lumbar degenerative disc disease Essential hypertension Muscle strain, hand COVID-19 vaccine series completed Back pain Hypertension Surgical History H/O colonoscopy History of hemorrhoidectomy Family History Father Prostate cancer Mother Diabetes Family/Other Hypertension Diabetes Son No problems noted. Daughter No problems noted. Sister No problems noted. Brother No problems noted. 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 Neuro: Normal sensation of the tips of all digits of the right hand at this time Vascular: Cap refill brisk Pain: Patient reports significant tenderness to palpation of the A1 isidra of the right thumb Pain associated with locking and catching of the right thumb ROM: There is visible and palpable locking and catching of the right thumb in a flexed position Patient is able to flex and extend all other digits of the right hand fully and without difficulty Skin: No lacerations or abrasions. General: No ecchymosis, erythema, or evidence of infection. Psych: Appears grossly normal Affect normal Attitude cooperative Assessment & Plan Assessment & Plan (1) Trigger thumb, right thumb: Code(s): M65.311 - Trigger thumb, right thumb Category: Medical Plan 1. Trigger thumb, right I educated the patient about the condition. I discussed both operative and nonoperative treatment options. The patient would like to proceed with surgery. The risks and benefits of operative treatment were discussed with the patient and the patient wishes to proceed with surgery. These risks include, but are not limited to, risk of damage to blood vessels, nerves, tendons, infection, recurrence, incomplete relief of preoperative symptoms, persistent pain, possible need for further surgery, and the risks associated with regional blocks and/or anesthesia. Plan is to take the patient to the operating room at some point in the next few weeks for the following procedures: 1. Right trigger thumb under local All of the preoperative paperwork including the consent was discussed today. All of the patient's questions were answered in the clinic today. The patient understands that they will be in contact with our surgical corsetier to discuss scheduling their procedure. Patient denies diabetes, blood thinners, asthma, heart issues, lung issues, kidney issues, or current smoking. Coding Level of Care Code New Pt Level 4 (19721) Diagnoses Trigger thumb, right thumb M65.311
[2025-01-23 13:38] VITALS: BMI 32.2
--- OUTSIDE RECORDS SUMMARY | 2025-01-23 14:43 | XMS_ITS | Data Portability ---
Author Organization [facility] [address] Address [address] [place] [id number] Assessment No assessment recorded. Plan of Treatment [...] By Organization Details Last Modified Time 07/09/2023 [id number] This physical does not replace the annual [...] SNOMED-CT Code Diagnosis ICD10 Code Diagnosis Note [id number] [address] [place] [address] 07/18/2021 16:01:20 07/18/2021 17:11:12 [id number] [address] [place] [address] 07/26/2016 12:11:49 07/26/2016 13:18:19 [id number] Zack Corcoran, AUTO REPAIR SHOP MANAGER [address] [place] [address] 07/09/2023 15:46:59 07/09/2023 17:13:54 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 [id number] Z02.4 Physical examination 588 0005 Z02.4 History an d physical examination, pre-employment [id number] Z02.1 Health Concerns Section Related Observation LastModified by Organization Detai ls LastModified Time None Recorded Concern Status LastModified by Organization Details LastModified Time None Recorded Advance Directives Directive None Recorded Payers Insurance Date Sequence Insurance Name Policy Number Policy Yi Covered Member ID Yi Member ID Guarantor Name 07/09/2023 1 [facility] (INDEMNITY) [id number] Eric Najera [id number] Eric Najera 07/09/2023 PAY AT TOS Eric Najera NAJERA [employer] Eric Najera 07/09/2023 OC-PAY AT TIME OF SERVICE 2022 Eric Aura RodriguezNajera TYMR Eric Najera
--- OUTSIDE RECORDS SUMMARY | 2025-01-23 14:43 | XMS_ITS | Clinical Summary ---
Author Organization [employer] [facility] it Address [address] [place] [address] Care Team Providers Care Road Traffic Controller Name Role Phone Roxanne Arredondo MD Primary [...] age to complete this topic Care Teams Road Traffic Controller Relationship Specialty Start Date End Date Roxanne Arredondo MD PCP - General 08/11/1999
== END 2025-01-23 14:22 | disposition home or self-care (01) ==
PROVIDERS: PCP Internal Medicine
DX: M65.311 Trigger thumb, right thumb (principal)
CPT/HCPCS: 99204

== ENCOUNTER → 2025-01-23 13:31 | Outpatient (BNVA) | payer SELFPAY | PROVIDERS: PCP Internal Medicine ==

== ENCOUNTER 2025-02-05 07:58 | Day surgery (SDC) | payer OTHER, SELFPAY ==
--- OUTSIDE RECORDS SUMMARY | 2025-01-24 10:50 | XMS_ITS | Clinical Summary ---
Author Organization [employer] [facility] it Address [address] [place] [address] Care Team Providers Care Catalog Library Assistant Name Role Phone Roxanne Arredondo MD Primary [...] age to complete this topic Care Teams Catalog Library Assistant Relationship Specialty Start Date End Date Roxanne Arredondo MD PCP - General 08/11/1999
--- NOTE | 2025-02-05 09:31 | P.OP_ITS ---
Operative Note Operative Note Date of Service: 02/05/25 Narrative: Operative Note Preop diagnosis: 1. Left thumb Trigger finger Postop diagnosis: 1. Left trigger thumb 2. Left thumb retinacular cyst Procedure: 1. Left thumb A1 isidra release 2. Left thumb excision of retinacular cyst Surgeon: Chen Busch MD Music Cataloguer: None Anesthesia: local block using 1% lidocaine with epinephrine Findings: He had a multi lobular retinacular cyst filled with clear viscous f luid sitting a top the A1 isidra of the left thumb. He had an hourglass deformity of the FPL tendon beneath the A1 isidra. No locking or catching after A1 isidra release EBL: Less than 5 mL Tourniquet time: None Specimens: Left thumb retinacular cyst Complications: None Disposition: Brought to recovery room in stable condition Plan: Follow-up for 10-14 days for wound check and suture removal, and check pathology Indications: The patient is 64 years old, with a left thumb trigger finger that has been unresponsive to nonoperative management. The risks and benefits of operative treatment including but not limited to risk of damage to blood vessels, nerves, tendons, infection, persistent pain, persistent symptoms, recurrence or possible need for additional surgery were discussed with the patient and the patient wishes to proceed with surgery. Procedure: Once consent was obtained a local block was performed in the preop area using a combination of 1% lidocaine with epinephrine. The patient was then brought back to the operating suite and placed on the operative table in supine position. The left upper extremity was prepped and draped in a standard surgical fashion. Once assured that we had a good block, a 1.5 cm oblique incision was made centered over the A1 isidra of the left thumb . The incision was made through the skin to the subcutaneous tissues using a #15 blade. Careful dissection was made down to the level of the A1 isidra using tenotomy scissors, with care being taken to protect the nearby neurovascular structures. He had a multi lobular retinacular cyst sitting a top the A1 isidra. I carefully dissected the retinacular cyst out from the surrounding tissues and excised it. It was removed from the patient and placed on the back table to be sent for histopathology. It was filled with clear viscous fluid consistent with a ganglion. A longitudinal incision was made in the A1 isidra 1st using a #15 blade, then using tenotomy scissors under direct visualization. The A1 isidra was noted to be thickened, and he had an hourglass deformity of the FPL tendon.. Following our A1 isidra release, we no longer saw any locking or catching of the digit with flexion and extension. Once satisfied with our A1 isidra release the wound was copiously irrigated with normal saline and hemostasis was obtained with a brief period of local pressure. The skin edges were reapproximated with some 5.0 nylon suture material and a sterile dressing was applied. The patient appears to have tolerated the procedure well and with no complicatio ns. All digits were well vascularized at the conclusion of the case.
--- NOTE | 2025-02-05 09:31 | MHC.SHP ---
Pre-Procedural Eval Section A - 24 Hr Update-Section A only Date of Service: 02/05/25 The patient is an INPATIENT: No Changes since office visit: No Cold of Flu in the past 2 weeks, No New Medical Problems, No Changes in Medication and No Patient answered all questions The patient has been examined within 24 hours of the surgical procedure. The History & Physical has been completed within 30 days and I have reviewed it.: Yes Section B - Complete if H&P > 30 days Chief Complaint: Trigger thumb, right thumb Allergies: Allergies Allergy/AdvReac Type Severity Reaction Status Date / Time No Known Allergies Allergy Verified 01/23/25 13:41 Plan Diagnosis/Plan: Unchanged I have reviewed the history and physical and performed a pertinent physical examination on my patient. No changes have occurred unless specified. Time Spent With Patient Time: Total time managing care of this patient today ____ minutes.
[2025-02-05 09:39] VITALS: BP 136/62; PULSE 59; RESP 14; TEMP 36.8; O2SAT 97; BMI 34.1
[2025-02-05 12:09] VITALS: BP 139/79; PULSE 52; RESP 16; O2SAT 97
== END 2025-02-05 12:13 | disposition home or self-care (01) ==
PROVIDERS: PCP Internal Medicine; Visit Provider Orthopaedic Surgery
PROC: (CPT 26055; principal; 2025-02-05 09:50)
DX: M67.442 Ganglion, left hand (principal); M65.311 Trigger thumb, right thumb; I10 Essential (primary) hypertension; R20.0 Anesthesia of skin; R20.2 Paresthesia of skin; J30.9 Allergic rhinitis, unspecified; E66.9 Obesity, unspecified; Z68.32 Body mass index [BMI] 32.0-32.9, adult; Z87.891 Personal history of nicotine dependence
CPT/HCPCS: 26160; 26055; 88304; J0171; J2003

== ENCOUNTER → 2025-02-05 07:58 | Outpatient (BNV) | payer OTHER, SELFPAY | PROVIDERS: PCP Internal Medicine; Visit Provider Orthopaedic Surgery | DX: M65.312 Trigger thumb, left thumb (principal) | CPT/HCPCS: 26055; 26160 ==

== ENCOUNTER 2025-02-07 08:54 | Outpatient (AMB) | payer OTHER, SELFPAY ==
[2025-02-07 08:57] VITALS: BP 143/80; PULSE 58; RESP 16; O2SAT 98; BMI 33.6
--- NOTE | 2025-02-07 08:57 | A.OFFVIS_ITS ---
Vital Signs 02/07/25 08:57 Height 5 ft 11 in Weight 241 lb BMI 33.6 BP 143/80 H Blood Pressure Location Rt brachial Position Sitting Respiration 16 Pulse 58 Pulse Source Pulse Oximeter Pulse Oximetry (%) 98 Oxygen Delivery Method Room Air Intake Visit Reasons: Injection discussion Residential Designer Required: No Allergies No Known Allergies Allergy (Verified 02/07/25 09:00) HPI Comments Details: The patient is a 64-year-old male presenting with right lumbar radiculopathy. Despite completing physical therapy approx 6 months ago, which offered temporary relief, the pain continues to persist, emphasizing a chronic issue. The pain originates from the lumbar region, radiating down the patient?s right leg to the foot, and occasionally the toes. The patient describes feeling tingling and shooting electrical pains, particularly with prolonged sitting, which impairs his ability to stand comfortably. The patient has previously received steroid injections for his condition, yet cannot recall their long-term impact, and is now considering this option again. Despite utilizing OTC pain medications (tylenol/NSAIDs) and other non- pharmacological treatments like ice, heat, and massages, these approaches have proven ineffective in alleviating his pain. The patient?s sleep is also disrupted due to his condition, resulting in difficulties with restfulness. He remains cautious about pursuing surgical options but is willing to consider injections for more immediate relief. - Onset and Timing: Persistent for many years - Quality and Character: Tingling, shooting, sharp, and electrical-like pain - Primary Location: Right lumbar region - Radiation: Down the back and side of the right leg to the foot, sometimes involving the toes - Exacerbating Factors: Prolonged sitting - Relieving Factors: None of significance noted except temporary relief from physical therapy and previous short-term relief from steroid injections - Interference: Hinders standing, disrupts sleep - Affect: Disruptive impact on sleep leading to tossing and turning - Analgesia: Currently using OTC medications without relief; past trial of muscle relaxants; interested in steroid injections for relief - Adverse Effects: None reported regarding current medications - Activities of Daily Living: Difficulty with prolonged sitting and standing, disrupted sleep - Aberrant Drug Related Behaviors: None reported [facility] Medical History Obesity (BMI 30-39.9) Allergic rhinitis GERD without esophagitis Lumbar degenerative disc disease Essential hypertension Muscle strain, hand COVID-19 vaccine series completed Back pain Hypertension Surgical History H/O colonoscopy History of hemorrhoidectomy Family History Father Prostate cancer Mother Diabetes Family/Other Hypertension Diabetes Son No problems noted. Daughter No problems noted. Sister No problems noted. Brother No problems noted. 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 Cognitive needs: No Hearing needs: No Vision needs: No Review of Systems Const Details: - Musculoskeletal: Reports persistent pain in the right lumbar area radiating down the right leg - Neurological: Reports occasional electrical shooting pain and tingling in the right leg - Psychiatric: Reports interrupted sleep due to pain - General: Denies any new symptoms Physical Exam Vital Signs: Last Vital Signs Pulse 58 02/07/25 08:57 Resp 16 02/07/25 08:57 BP 143/80 H 02/07/25 08:57 Pulse Ox 98 02/07/25 08:57 Oxygen Delivery Method Room Air 02/07/25 08:57 BMI result Body Mass Index 33.6 General: awake, alert, oriented. Answers questions appropriately. Fully engaged in examination. Skin: warm, dry, intact HEENT: Normocephalic. Hearing intact. Cardiac: External chest normal in appearance. Respiratory: No cough, audible wheezing or stridor. Abdomen: without gross distension. MS: No obvious swelling or deformities. Able to transition from sit to stand unassisted. Ambulates with bilaterally normal heel strike and toe off SLR positive the right. Negative footdrop, negative clonus Tenderness over midline lumbar vertebrae lumbar paraspinal muscles Bilateral lower extremity strength 5/5 Neurological: Oriented to person, place, time and situation. Thought process intact. No gait abnormalities appreciated. Psychiatric: Appropriate mood and affect. Good judgment and insight. Results Reviewed Results Reviewed: 04/05/2024 MRI lumbar spine FINDINGS: There are 5 non-rib bearing lumbar type vertebral bodies. Lumbar alignment is maintained. The vertebral body heights are preserved. There is moderate to severe disc volume loss at L4-L5 and there is moderate disc line loss at L5-S1. Modic type I signal changes at L2-L3 and L4-L5. No additional bone marrow edema. No acute fractures. The vertebral body heights are overall maintained. The conus terminates at the T12-L1 level. Bilateral perinephric stranding. Hypertrophic degenerative changes across the SI joints bilaterally. Please note that axial T2-weighted imaging obtained for this examination is nondiagnostic and the patient could not repeat this series. Very limited assessment of the disc levels. L1-L2: A far right lateral disc osteophyte protrusion results in mild right-sided foraminal encroachment and may contact the extraforaminal right L1 nerve root. L2-L3: Diffuse annular disc bulge and mild bilateral facet arthropathy and prominent dorsal epidural fat results in moderate thecal sac effacement. A right lateral disc osteophyte protrusion and facet arthropathy result in moderate right-sided foraminal stenosis and compression of the extraforaminal right L2 nerve root. L3-L4: There is a diffuse annular disc bulge and there is moderate bilateral facet arthropathy and ligamentum flavum thickening as well as prominent dorsal epidural fat resulting in moderate thecal sac effacement. Disc osteophyte and facet arthropathy result in moderate bilateral foraminal stenosis with mild mass effect on the foraminal and extraforaminal segments of the exiting L3 nerve roots bilaterally. L4-L5: Grade 1 retrolisthesis. Diffuse disc osteophyte complex and bilateral facet arthropathy result in bilateral subarticular zone stenosis with mass effect on the traversing L5 nerve roots bilaterally and moderate bilateral foraminal stenosis with disc osteophyte contacting the extraforaminal L4 nerve roots bilaterally. L5-S1: Diffuse disc osteophyte complex and right greater than left facet arthropathy. Moderate bilateral foraminal stenosis with disc osteophyte resulting in mass effect on the extraforaminal L5 nerve roots bilaterally. IMPRESSION: * Please note that axial T2-weighted imaging obtained for this examination is nondiagnostic and the patient could not repeat this series. Very limited assessment of the disc levels. * At L5-S1, multifactorial degenerative changes result in moderate bilateral foraminal stenosis with disc osteophyte resulting in mass effect on the extraforaminal L5 nerve roots bilaterally. * At L4-L5, grade 1 retrolisthesis and multifactorial degenerative changes result in bilateral subarticular zone stenosis with mass effect on the traversing L5 nerve roots bilaterally and moderate bilateral foraminal stenosis with disc osteophyte contacting the extraforaminal L4 nerve roots bilaterally. * At L3-L4, multifactorial degenerative changes and prominent dorsal epidural fat result in moderate thecal sac effacement as well as moderate bilateral foraminal stenosis with mild mass effect on the foraminal and extraforaminal segments of the exiting L3 nerve roots bilaterally. * At L2-L3, spondylitic changes and epidural lipomatosis result in moderate thecal sac effacement and a right lateral disc osteophyte protrusion and facet arthropathy result in moderate right-sided foraminal stenosis and compression of the extraforaminal right L2 nerve root. Assessment & Plan Assessment & Plan (1) Chronic pain: Code(s): G89.29 - Other chronic pain Category: Medical (2) Lumbar radiculopathy: Code(s): M54.16 - Radiculopathy, lumbar region Category: Medical Plan For the management of right lumbar radiculopathy, I will submit for authorization of a steroid injection designed to offer temporary relief from pain symptoms with a focus on maintaining activity levels. Previous injection experiences provided short-term pain relief and validating this treatment may help sustain current functionality and delay any need for surgical considerations. A muscle relaxant, cyclobenzaprine, will be prescribed to improve sleep quality impacted by pain. Benefits of the interventions include decreased pain and inflammation, while potential risks include transient discomfort and diminishing efficacy over time. I discussed with the patient the management strategy for right lumbar radiculopathy, highlighting the option for steroid injections which could offer temporary pain relief for several months. We reviewed that surgical intervention remains a later option unless the pain becomes intolerable. I emphasized the potential benefits of the injection, such as reduced inflammation and short-term symptom relief, while also outlining possible risks and diminished effectiveness over repeated use. The patient agreed to proceed with the injection plan. I also provided a prescription for a muscle relaxant, cyclobenzaprine, intended to alleviate nighttime pain symptoms and improve sleep. Assurance was given regarding timely follow-up upon approval of the injection. Skipping guided right L4-5, L5-S1 transforaminal epidural steroid injection with local anesthetic Patient was informed and verbally consented to the use of an ambient scribe for clinic note documentation during this visit. Medications: New cyclobenzaprine 10 mg PO BEDTIME PRN 30 tabs 1RF muscle spasm Patient Instructions: - Watch for a call to schedule a steroid injection appointment - Take cyclobenzaprine as prescribed, particularly at bedtime for pain-induced sleep issues - Continue current other activities that do not exacerbate pain - Follow up if pain persists or worsens despite treatment - Avoid prolonged sitting if it intensifies symptoms Coding Level of Care Code Est Pt Level 3 (34002) Complex EM visit Add On G2211 Diagnoses Chronic pain G89.29 Lumbar radiculopathy M54.16
--- OUTSIDE RECORDS SUMMARY | 2025-02-07 09:19 | XMS_ITS | Data Portability ---
Author Organization [facility] [address] [place] [address] Assessment No assessment recorded. Plan of Treatment [...] By Organization Details Last Modified Time 07/09/2023 [id number] This physical does not replace the annual [...] SNOMED-CT Code Diagnosis ICD10 Code Diagnosis Note [id number] [address] [place] [address] 07/18/2021 16:01:20 07/18/2021 17:11:12 [id number] [address] [place] [address] 07/26/2016 12:11:49 07/26/2016 13:18:19 [id number] Zack Corcoran, CORPORATE TRAINING MANAGER [address] [place] [address] 07/09/2023 15:46:59 07/09/2023 17:13:54 [employer]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 [id number] Z02.4 Physical examination 588 0005 Z02.4 History an d physical examination, pre-employment [id number] Z02.1 Health Concerns Section Related Observation LastModified by Organization Detai ls LastModified Time None Recorded Concern Status LastModified by Organization Details LastModified Time None Recorded Advance Directives Directive None Recorded Payers Insurance Date Sequence Insurance Name Policy Number Policy Yi Covered Member ID Yi Member ID Guarantor Name 07/09/2023 1 [facility] (INDEMNITY) [id number] Eric Najera [id number] Eric Najera 07/09/2023 PAY AT TOS Eric Najera NAJERA [employer] Eric Najera 07/09/2023 OC-PAY AT TIME OF SERVICE 2022 Eric Aura RodriguezNajera [employer] Eric Najera
== END 2025-02-07 09:22 | disposition home or self-care (01) ==
LOC: HO.PMC 08:55
PROVIDERS: PCP Internal Medicine; Visit Provider Registered Nurse Emergency
DX: G89.29 Other chronic pain (principal); M54.16 Radiculopathy, lumbar region
CPT/HCPCS: 99213

== ENCOUNTER → 2025-02-07 08:54 | Outpatient (BNVA) | payer OTHER, SELFPAY | PROVIDERS: PCP Internal Medicine; Visit Provider Registered Nurse Emergency ==

== ENCOUNTER 2025-02-20 14:48 | Outpatient (AMB) | payer OTHER, SELFPAY ==
--- NOTE | 2025-02-20 15:39 | MHC.OFFVIS ---
Vital Signs 02/20/25 15:43 Height 5 ft 11 in Weight 240 lb BMI 33.5 Handedness Right Intake Visit Reasons: PO RT trigger thumb 02/05/25 AR Intake Note: Eric is a 64 year old right hand dominant male who presents today for a post operative visit status post left thumb A1 isidra release and left thumb excision of retinacular cyst, DOS: 02/05/[address] Chen Busch. Patient reports constant pain at incision site of left thumb since his procedure. Motrin does offer mild relief for a short period. He expresses stiffness and tingling in the left thumb. He has been moving his thumb around because he says he does not want his thumb to jam. Wants to discuss work status. Allergies No Known Allergies Allergy (Verified 02/20/25 15:43) HPI HPI PO RT trigger thumb 02/05/25 AR: Details: Eric is a 64 year old right hand dominant male who presents today for a post operative visit status post left thumb A1 isidra release and left thumb excision of retinacular cyst, DOS: 02/05/[address] Chen Busch. Patient reports constant pain at incision site of left thumb since his procedure. Motrin does offer mild relief for a short period. He expresses stiffness and tingling in the left thumb. He has been moving his thumb around because he says he does not want his thumb to jam. Wants to discuss work status. [facility] Medical History Obesity (BMI 30-39.9) Allergic rhinitis GERD without esophagitis Lumbar degenerative disc disease Essential hypertension Muscle strain, hand COVID-19 vaccine series completed Back pain Hypertension Surgical History H/O colonoscopy History of hemorrhoidectomy Family History Father Prostate cancer Mother Diabetes Family/Other Hypertension Diabetes Son No problems noted. Daughter No problems noted. Sister No problems noted. Brother No problems noted. 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 Neuro: Normal sensation of the tips of all digits of the right hand at this time Vascular: Cap refill brisk Pain: Ttenderness to palpation about the incision site in the A1 isidra of the right thumb Minimal discomfort with range of motion of the right hand ROM: Patient is able to make a closed fist extend digits of the right fully without difficulty No further locking and catching right thumb no Skin: Well approximated and well healing incision site noted over the A1 isidra of the right thumb There appears to be some borderline erythema surrounding incision site No lacerations or abrasions. Psych: Appears grossly normal Affect normal Attitude cooperative Assessment & Plan Assessment & Plan (1) Trigger thumb, right thumb: Code(s): M65.311 - Trigger thumb, right thumb Category: Medical Plan 1. Status post right trigger thumb release DOS 02/05/2025 Patient appears to be recovering fairly well postoperatively Educated about the typical recovery course At this time, and caution due to his tenderness and redness around the incision, patient was prescribed a one-week course of Augmentin Patient will follow-up in 1 week for wound check, if improving no further antibiotics will be necessary Patient is amenable to this plan Follow-up in one-week Medications: New amoxicillin-pot clavulanate 875-125 mg 1 tab PO BID 14 tabs 0RF 7 days Coding Level of Care Code Global (01879) Diagnoses Trigger thumb, right thumb M65.311
[2025-02-20 15:43] VITALS: BMI 33.5
--- OUTSIDE RECORDS SUMMARY | 2025-02-20 17:10 | XMS_ITS | Data Portability ---
Author Organization [facility] [address] [place] [address] Assessment No assessment recorded. Plan of Treatment [...] By Organization Details Last Modified Time 07/09/2023 [id number] This physical does not replace the annual [...] SNOMED-CT Code Diagnosis ICD10 Code Diagnosis Note [id number] [address] [place] [address] 07/18/2021 16:01:20 07/18/2021 17:11:12 [id number] [address] [place] [address] 07/26/2016 12:11:49 07/26/2016 13:18:19 [id number] Zack Corcoran, CEMENT TESTER ASSISTANT [address] [place] [address] 07/09/2023 15:46:59 07/09/2023 17:13:54 [employer] license medical examination [id number] Z02.4 Physical examination 588 0005 Z02.4 History an d physical examination, pre-employment [id number] Z02.1 Health Concerns Section Related Observation LastModified by Organization Detai ls LastModified Time None Recorded Concern Status LastModified by Organization Details LastModified Time None Recorded Advance Directives Directive None Recorded Payers Insurance Date Sequence Insurance Name Policy Number Policy Yi Covered Member ID Yi Member ID Guarantor Name 07/09/2023 1 [facility] (INDEMNITY) [id number] Eric Najera [id number] Eric Najera 07/09/2023 PAY AT TOS Eric Najera NAJERA [employer] Eric Najera 07/09/2023 OC-PAY AT TIME OF SERVICE 2022 Eric Aura RodriguezNajera [employer] Eric Najera
== END 2025-02-20 16:08 | disposition home or self-care (01) ==
LOC: HO.HOS 14:49
PROVIDERS: PCP Internal Medicine
DX: M65.311 Trigger thumb, right thumb (principal)
CPT/HCPCS: 99024

== ENCOUNTER → 2025-02-20 14:48 | Outpatient (BNVA) | payer OTHER, SELFPAY | PROVIDERS: PCP Internal Medicine ==

== ENCOUNTER → 2025-02-26 09:44 | Outpatient (REF) | payer OTHER, SELFPAY ==
--- NOTE | 2025-02-26 09:47 | HM_ITS ---
Conclusion: 1. Patient was monitored for total period of 6 days and 3 hours 2. Baseline was normal sinus rhythm with average heart rate of 70 beats per minute 3. Frequent PVCs noted with total burden of 16.7%. 4. Frequent 3-4 beat salvos of nonsustained VT noted with multiple longer episodes of nonsustained VT, most prominent 10 beats at 195 beats per minute, monomorphic. Does not another episode of wide complex tachycardia 27 beat which could represent SVT with aberrancy although unclear 5. No patient reported events MTDD
--- OUTSIDE RECORDS SUMMARY | 2025-02-26 10:33 | XMS_ITS | Data Portability ---
Author Organization [facility] [address] Address [address] [place] [address] Assessment No assessment recorded. Plan of Treatment [...] By Organization Details Last Modified Time 07/09/2023 [id number] This physical does not replace the annual physical to be performed by your PCP. There may be additional screening tests that they will perform that we do not in the urgent care setting. Failure to follow up as recommended may result in significant adverse health consequences. If your symptoms worsen or you develop new symptoms that concern you, go to the emergency department for further evaluation. [email or web address] Not available 07/09/2023 16:25:30 Reason for Referral None Reported. Procedures Surgical History Date Name Laterality Status Provider Name and Address Organization Details Recorded Time OC-DOT PHYSICAL completed [facility] 07/09/2023 16:03:04 Imaging Results None recorded. 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 [id number] Z02.4 Physical examination 588 0005 Z02.4 History an d physical examination, pre-employment [id number] Z02.1 Health Concerns Section Related Observation LastModified by Organization Detai ls LastModified Time None Recorded Concern Status LastModified by Organization Details LastModified Time None Recorded Advance Directives Directive None Recorded Payers Insurance Date Sequence Insurance Name Policy Number Policy Yi Covered Member ID Yi Member ID Guarantor Name 07/09/2023 1 [facility] ([facility]MNITY) [id number] Eric Najera [id number] Eric Najera 07/09/2023 PAY AT TOS Eric Najera NAJERA [employer] Eric Najera 07/09/2023 OC-PAY AT TIME OF SERVICE 2022 Eric Aura RodriguezNajera [employer] Eric Najera
== END ==
LOC: HO.CARD 09:44
PROVIDERS: PCP Internal Medicine; Visit Provider Internal Medicine
DX: I49.3 Ventricular premature depolarization (principal)
CPT/HCPCS: 93242

== ENCOUNTER → 2025-02-26 09:47 | Outpatient (BNV) | payer OTHER, SELFPAY | PROVIDERS: PCP Internal Medicine; Visit Provider Internal Medicine Cardiovascular Disease | DX: I47.20 Ventricular tachycardia, unspecified (principal); I49.3 Ventricular premature depolarization | CPT/HCPCS: 93244 ==

== ENCOUNTER 2025-02-27 09:30 | Outpatient (AMB) | payer OTHER, SELFPAY ==
[2025-02-27 09:47] VITALS: BMI 33.6
--- NOTE | 2025-02-27 09:47 | MHC.OFFVIS ---
Vital Signs 02/27/25 09:47 Height 5 ft 11 in Weight 241 lb BMI 33.6 Intake Visit Reasons: PO RT trigger thumb 02/05/25 AR wound check Intake Note: Eric is a 64 year old right hand dominant male who presents today for a post operative visit status post left thumb A1 isidra release and left thumb excision of retinacular cyst, DOS: 02/05/[address] Chen Busch. Patient reports he feels his incision is healing well, reports no concerns today. Allergies No Known Allergies Allergy (Verified 02/27/25 09:51) HPI HPI PO RT trigger thumb 02/05/25 AR wound check: Details: Eric is a 64 year old right hand dominant male who presents today for a post operative visit status post left thumb A1 isidra release and left thumb excision of retinacular cyst, DOS: 02/05/[address] Chen Busch. Patient reports he feels his incision is healing well, reports no concerns today. Reports redness has resolved. [facility] Medical History Obesity (BMI 30-39.9) Allergic rhinitis GERD without esophagitis Lumbar degenerative disc disease Essential hypertension Muscle strain, hand COVID-19 vaccine series completed Back pain Hypertension Surgical History H/O colonoscopy History of hemorrhoidectomy Family History Father Prostate cancer Mother Diabetes Family/Other Hypertension Diabetes Son No problems noted. Daughter No problems noted. Sister No problems noted. Brother No problems noted. 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 Neuro: Normal sensation of the tips of all digits of the right hand at this time Vascular: Cap refill brisk Pain: No Ttenderness to palpation about the incision site in the A1 isidra of the right thumb Minimal discomfort with range of motion of the right hand ROM: Patient is able to make a closed fist extend digits of the right fully without difficulty No further locking and catching right thumb no Skin: Well approximated and well healing incision site noted over the A1 isidra of the right thumb No lacerations or abrasions. Psych: Appears grossly normal Affect normal Attitude cooperative Assessment & Plan Assessment & Plan (1) Trigger thumb, right thumb: Code(s): M65.311 - Trigger thumb, right thumb Category: Medical Plan 1. Status post right trigger thumb release DOS 02/05/2025 Patient appears to be recovering fairly well postoperatively Educated about the typical recovery course Redness well resolved, no further acute follow-up indicated Patient is amenable to this plan Follow-up as needed Coding Level of Care Code Global (19998) Diagnoses Trigger thumb, right thumb M65.311
== END 2025-02-27 10:02 | disposition home or self-care (01) ==
LOC: HO.HOS 09:31
PROVIDERS: PCP Internal Medicine
DX: M65.311 Trigger thumb, right thumb (principal)
CPT/HCPCS: 99024

== ENCOUNTER 2025-05-23 16:02 | Outpatient (AMB) | payer OTHER, SELFPAY ==
--- NOTE | 2025-05-23 16:03 | A.OFFPC_ITS ---
Vital Signs 05/23/25 16:04 Height 5 ft 11 in Weight 241 lb 4 oz BMI 33.6 BP 118/82 Blood Pressure Location Lt brachial Position Sitting Pulse 64 Pulse Source Pulse Oximeter Pulse Oximetry (%) 94 Oxygen Delivery Method Room Air Intake Visit Reasons: HTN, hyperlipidemia Food Service Ambassador Required: No Accompanied by: Self / Same As Patient Allergies No Known Allergies Allergy (Verified 05/23/25 16:33) Medication List - Last Reconciled 05/23/25 by Abdi Hutchinson MD carvedilol 3.125 mg PO BID cyclobenzaprine 10 mg PO BEDTIME PRN famotidine 40 mg PO DAILY fluticasone propionate 50 mcg/actuation 1 spray intranasal DAILY metronidazole 1% (Metrogel) 1 ea topical DAILY tadalafil 20 mg PO DAILY PRN tramadol 50 mg PO Q8H PRN valsartan 40 mg PO BID Tobacco use date assessed: 05/23/25 Fall risk assessment: No Falls in past year Last assessed Fall Risk: 05/23/25 Dental Screening Dental Screen Date: 05/23/25 Did you have a dental visit in the last 12 months?: No Did you have a dental problem in the last 6 months where you did not have access to dental care?: No Was dental information given to patient?: No HPI HTN, hyperlipidemia HPI Details Patient comes in today for his follow up visit States that he feels okay He had his trigger finger release surgery done with orthopedics a few months ago - states that his surgery went well and he no longer has any problems/pain with his thumb He denies any headaches or dizziness Denies any chest pains, no SOB No nausea/vomiting, no abdominal pain No change in bowel habits noted He was not able to get his follow up labs done prior to his appointment today - states that he can go and get them done sometime in the next couple of days [facility] Medical History Obesity (BMI 30-39.9) Allergic rhinitis GERD without esophagitis Lumbar degenerative disc disease Essential hypertension Muscle strain, hand COVID-19 vaccine series completed Back pain Hypertension Surgical History H/O colonoscopy History of hemorrhoidectomy Family History Father Prostate cancer Mother Diabetes Family/Other Hypertension Diabetes Son No problems noted. Daughter No problems noted. Sister No problems noted. Brother No problems noted. 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 Depression Screening Interpretation: Negative Depression Screening Done: Yes Source: Developed by Drs. Martín Jessica, Yolette Gomez, Anthony Diaz and colleagues, with an educational mikayla from [employer]. Thrive Questionnaire Date Thrive assessed: 01/09/25 I am a: Patient What is your living situation today?: I have a steady place to live Within the past 12 months, did the food you bought not last and you didn't have the money to get more?: Never true Within the past 12 months, did you worry whether your food would run out before you got money to buy more?: Never true Do you have trouble paying for medicines?: No Do you have trouble getting transportation to medical appointments?: No Do you have trouble paying your heating and electricity bill?: No Do you have trouble taking care of your child, family member or friend?: No Do you have trouble with day-to-day activities such as bathing, preparing meals, shopping, managing finances, etc.?: No Are you currently unemployed and looking for a job?: No Are you interested in more education?: No Please select the resources that you would like help with: None Currently or been in a relationship where the following occur: No concerns reported THRIVE Score: 0 AUDIT C Alcohol Use Questionnaire (AUDIT-C) 1. How often do you have a drink containing alcohol?: Never 3. How often do you have six or more drinks on one occasion?: Never Total Score: 0 Score Reviewed/Action Taken: Yes KYRA-7 AMB Questionnaire KYRA-7 Date KYRA - 7 assessed: 01/09/25 Source: Developed by Drs. Martín Jessica, Yolette Gomez, Anthony Diaz and colleagues, with an educational mikayla from [employer]. Review of Systems Const Denies chills, Denies fatigue, Denies fever(s) and Denies headache(s) ENT Denies dysphagia, Denies dizziness, Denies otalgia, Denies headache(s), Denies neck pain, Denies odynophagia and Denies sore throat Card Denies chest pain, Denies palpitations and Denies dyspnea Resp Denies chest congestion, Denies cough and Denies dyspnea GI Denies abdominal pain, Denies constipation, Denies dysphagia, Denies heartburn, Denies diarrhea, Denies nausea, Denies odynophagia and Denies vomiting Denies difficulty urinating, Denies dysuria, Denies nocturia and Denies urinary frequency Musc Reports back pain (over the lower back - chronic), Denies arthralgias and Denies neck pain Skin/Breast Denies rash Neuro Denies dizziness and Denies headache(s) Psych Denies anxiety and Denies depression Endo Denies fatigue and Denies palpitations Physical exam (Primary Care) Vital Signs: Last Vital Signs Pulse 64 05/23/25 16:04 BP 118/82 05/23/25 16:04 Pulse Ox 94 05/23/25 16:04 Oxygen Delivery Method Room Air 05/23/25 16:04 BMI result Body Mass Index 33.6 Tobacco/Smoking Status: Tobacco use Status Tobacco use date assessed 05/23/25 05/23/25 16:05 Patient Tobacco Use Status Former Tobacco user 05/23/25 16:05 Tobacco use type Cigarette 05/23/25 16:05 e-Cigarette/Vaping Use Never Used 05/23/25 16:05 Depression Screening Interpretation: Negative Thrive Assessment: Date of Thrive Assessment Date Thrive assessed 01/09/25 05/23/25 16:05 Currently or been in a relationship where the following occur: No concerns reported Const General: no acute distress and alert HENMT Ears: TM's normal bilaterally and EAC's normal Throat: Yes posterior oropharynx normal and Yes tonsils normal (no TP congestion) Neck Neck: Yes supple and No lymphadenopathy Thyroid: Thyroid normal Resp Auscultation: clear to auscultation bilaterally, no rales and no wheezes Cardio Rate: regular rate Rhythm: regular rhythm Heart sounds: no murmurs GI Palpation (GI): Soft to palpation and nontender Auscultation: normal bowel sounds General: No CVA tenderness Back/Spine/Pelvis Back: No CVA tenderness Thoracic/Lumbar Spine: lumbar spinal tenderness Skin Rashes: no rashes Extrem General: Yes no clubbing, cyanosis or edema Coding Level of Care Code Est Pt Level 4 (30795) Diagnoses Cardiomyopathy, unspecified type I42.9 Cardiomyopathy type: unspecified Essential hypertension I10 Degeneration of intervertebral disc of lumbar region with discogenic back pain M51.360 Disc-related pain type: discogenic back pain only Obstructive sleep apnea G47.33 GERD without esophagitis K21.9 Allergic rhinitis, unspecified seasonality, unspecified trigger J30.9 Allergic rhinitis seasonality: unspecified Allergic rhinitis trigger: unspecified Obesity (BMI 30-39.9) E66.9 Assessment & Plan Assessment & Plan (1) Cardiomyopathy: Code(s): I42.9 - Cardiomyopathy, unspecified Category: Medical Qualifiers: Cardiomyopathy type: unspecified Qualified Code(s): I42.9 - Cardiomyopathy, unspecified Plan: He likely has hypertensive cardiomyopathy His most recent echocardiogram done in December 2023 revealed (+) severe LV dysfunction, with EF at around 30% He underwent cardiac catheterization in September 2023 that shows normal coronary arteries EKG showed (+) frequent PVCs Continue Carvedilol 3.125 mg BID Follow up with cardiology as scheduled (2) Essential hypertension: Code(s): I10 - Essential (primary) hypertension Category: Medical Plan: Reinforced low sodium diet - goal is systolic BP of at least 130 mm or less Continue Carvedilol 3.125 mg BID and Valsartan 40 mg BID Patient is reminded to continue monitoring his blood pressure regularly He was not able to get his previously ordered labs done yet - states that he will try to get these done KATELYNN (3) Lumbar degenerative disc disease: Code(s): M51.369 - Other intervertebral disc degeneration, lumbar region without mention of lumbar back pain or lower extremity pain Category: Medical Qualifiers: Disc-related pain type: discogenic back pain only Qualified Code(s): M51.360 - Other intervertebral disc degeneration, lumbar region with discogenic back pain only Plan: Reinforced activity and weight-lifting restrictions Lumbar spine MRI done last year on 04/05/2024 revealed (+) multilevel degenerative or spondylotic disc changes resulting in varying degrees of fo raminal stenosis and mass effect on the individual levels (see complete report below for details) He is currently scheduled to see neurosurgery for further evaluation and recommendations with regards to his lumbar spine MRI findings Continue Tramadol 50 mg TID PRN for pain Lumbar spine MRI on 04/05/2024: At L5-S1, multifactorial degenerative changes result in moderate bilateral foraminal stenosis with disc osteophyte resulting in mass effect on the extraforaminal L5 nerve roots bilaterally. * At L4-L5, grade 1 retrolisthesis and multifactorial degenerative changes result in bilateral subarticular zone stenosis with mass effect on the traversing L5 nerve roots bilaterally and moderate bilateral foraminal stenosis with disc osteophyte contacting the extraforaminal L4 nerve roots bilaterally. * At L3-L4, multifactorial degenerative changes and prominent dorsal epidural fat result in moderate thecal sac effacement as well as moderate bilateral fora jennifer stenosis with mild mass effect on the foraminal and extraforaminal segments of the exiting L3 nerve roots bilaterally. * At L2-L3, spondylitic changes and epidural lipomatosis result in moderate thecal sac effacement and a right lateral disc osteophyte protrusion and facet arthropathy result in moderate right-sided foraminal stenosis and compression of the extraforaminal right L2 nerve root. (4) Obstructive sleep apnea: Code(s): G47.33 - Obstructive sleep apnea (adult) (pediatric) Category: Medical Plan: Continue using his CPAP device when sleeping at night daily - patient reports (+) significant improvement of his symptoms overall with the use of his CPAP device Follow up with Sleep Medicine as scheduled (5) GERD without esophagitis: Code(s): K21.9 - Gastro-esophageal reflux disease without esophagitis Category: Medical Plan: Dietary restrictions reinforced Continue Famotidine 40 mg QD (6) Allergic rhinitis: Code(s): J30.9 - Allergic rhinitis, unspecified Category: Medical Qualifiers: Allergic rhinitis seasonality: unspecified Allergic rhinitis trigger: unspecified Qualified Code(s): J30.9 - Allergic rhinitis, unspecified Plan: Continue Fluticasone 50 mcg nasal spray QD PRN (7) Obesity (BMI 30-39.9): Code(s): E66.9 - Obesity, unspecified Category: Medical Plan: Reinforced diet/exercise as tolerated/lose weight Plan Follow up in 4 months
[2025-05-23 16:04] VITALS: BP 118/82; PULSE 64; O2SAT 94; BMI 33.6
--- OUTSIDE RECORDS SUMMARY | 2025-05-23 19:12 | XMS_ITS | Clinical Summary ---
Author Organization [employer] [facility] it Address [address] [place] [address] Care Team Providers Care Tribal Judge Name Role Phone Roxanne Arredondo MD Primary [...] 2010 Zoster Vaccines (1 of 2) 2010 Depression Screening 09/06/2024 COVID-19 Vaccine (1 - 2023-2 5 season) 2025 Influenza Vaccine (#1) 2025 07/14/2005 RSV Immunization Adult Patie nts (1 - [...] age to complete this topic Care Teams Tribal Judge Relationship Specialty Start Date End Date Roxanne Arredondo MD PCP - General 08/11/1999
== END 2025-05-23 16:52 | disposition home or self-care (01) ==
LOC: HO.HMCH 16:02
PROVIDERS: PCP Internal Medicine; Visit Provider Internal Medicine
DX: I42.9 Cardiomyopathy, unspecified (principal); I10 Essential (primary) hypertension; M51.360 Other intervertebral disc degeneration, lumbar region with discogenic back pain only; Z68.33 Body mass index [BMI] 33.0-33.9, adult; E66.9 Obesity, unspecified; G47.33 Obstructive sleep apnea (adult) (pediatric); K21.9 Gastro-esophageal reflux disease without esophagitis; J30.9 Allergic rhinitis, unspecified

== ENCOUNTER 2025-06-02 08:15 | Outpatient (REF) | payer OTHER, SELFPAY ==
--- OUTSIDE RECORDS SUMMARY | 2025-06-02 08:20 | XMS_ITS | Clinical Summary ---
Author Organization [employer] [facility] it Address [address] [place] [address] Care Team Providers Care Hand Ornament Maker Name Role Phone Roxanne Arredondo MD Primary [...] age to complete this topic Care Teams Hand Ornament Maker Relationship Specialty Start Date End Date Roxanne Arredondo MD PCP - General 08/11/1999
[2025-06-02 08:41] LABS: MANUAL DIFF FLAG NO
[2025-06-02 09:03] LABS: Hematocrit 44.9 % (42.0-52.0); Hemoglobin 14.9 g/dl (14.0-18.0); Imm Gran Abs Auto 0.00 X10*3/uL (0.00-0.03); Imm Gran Pct Auto 0.0 % (0.0-0.4); Lymphocytes Absolute Auto 1.7 X10*3/uL (1.2-4.9); Mean Corpuscular HGB Conc 33.2 g/dl (31.0-36.0); Mean Corpuscular Hemoglobin 29.4 pg (27.0-33.0); Mean Corpuscular Volume 88.6 fL (80.0-98.0); NRBC Abs Auto 0.000 X10*3/uL (0.0-0.012); NRBC Pct Auto 0.0 /100WBC (0.0-0.2); Platelet Count 121 X10*3/uL (160-400); Red Blood Count 5.07 X10*6/uL (4.60-5.80); White Blood Count 3.9 X10*3/uL (4.8-10.8)
[2025-06-02 09:08] LABS: Appearance Urine Clear; Glucose Urine UA Negative (Negative); PH 5.5 (5.0-9.0); Specific Gravity - Urine 1.025 (1.005-1.025)
[2025-06-02 09:31] LABS: Alanine Aminotransferase 36 U/L (0-40); Albumin Level 4.4 g/dL (3.5-5.0); Alkaline Phosphatase 64 U/L (39-117); Anion Gap 9 (12-20); Aspartate Amino Transferase 25 U/L (5-37); Blood Urea Nitrogen 12 mg/dL (9-16); Calcium 9.1 mg/dL (8.4-10.2); Carbon Dioxide 28 mmol/L (22-29); Chloride 111 mmol/L (96-108); Cholesterol 171 mg/dL (<200); Estimated Glomerular Filt Rate > 60; HDL Cholesterol 39 mg/dL (>40); Potassium 4.5 mmol/L (3.3-5.1); Sodium 143 mmol/L (135-145); Total Protein 7.0 g/dL (6.5-8.0); Triglycerides 182 mg/dL (<150)
== END 2025-06-02 08:16 | disposition home or self-care (01) ==
LOC: HO.LAB 08:15
PROVIDERS: PCP Internal Medicine; Visit Provider Internal Medicine
DX: R30.0 Dysuria (principal); D64.9 Anemia, unspecified; E55.9 Vitamin D deficiency, unspecified; E78.00 Pure hypercholesterolemia, unspecified
CPT/HCPCS: 36415; 80053; 80061; 81003; 82306; 84443; 85025

== ENCOUNTER 2025-06-22 15:57 | Outpatient (AMB) | payer OTHER, SELFPAY ==
--- NOTE | 2025-06-22 16:00 | MHC.OFFVIS ---
Vital Signs 06/22/25 16:01 Height 5 ft 11 in Weight 243 lb BMI 33.9 BP 124/72 Blood Pressure Location Lt brachial Position Sitting Pulse 52 Pulse Source Pulse Oximeter Pulse Oximetry (%) 96 Oxygen Delivery Method Room Air Intake Visit Reasons: Sleep apnea Allergies No Known Allergies Allergy (Verified 06/22/25 16:06) HPI HPI Sleep apnea: Details: Eric is a pleasant 65 year old male, former smoker, with underlying mild BERENICE on CPAP, HTN and cardiomyopathy (2022 EF 35-40%). Home sleep study 11/2023 revealed mild BERENICE with AHI 11.7. He has been using CPAP therapy consistently and feels he is benefitting from therapy with improvements in daytime fatigue and nonrestorative sleep. He has been using CPAP therapy in APAP mode with pressures 6-20cm H20. DME is [facility]. Today he presents to review compliance report. At this time, he denies any respiratory symptoms at this time. [facility] Medical History Obesity (BMI 30-39.9) Allergic rhinitis GERD without esophagitis Lumbar degenerative disc disease Essential hypertension Muscle strain, hand COVID-19 vaccine series completed Back pain Hypertension Surgical History H/O colonoscopy History of hemorrhoidectomy Family History Father Prostate cancer Mother Diabetes Family/Other Hypertension Diabetes Son No problems noted. Daughter No problems noted. Sister No problems noted. Brother No problems noted. 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 Cognitive needs: No Hearing needs: No Vision needs: No Review of Systems Const Denies chills, Denies excessive sweating, Denies fever(s), Denies headache(s) and Denies night sweats Eyes Denies dry eyes, Denies irritation and Denies itchy eyes ENT Reports Normal hearing present, Denies headache(s), Denies nasal congestion, Denies nasal discharge, Denies post nasal drip and Denies sore throat Card Denies chest pain, Denies chest pain at rest, Denies chest pain with activity, Denies claudication, Denies leg edema, Denies dyspnea, Denies dyspnea on exertion, Denies orthopnea and Denies paroxysmal nocturnal dyspnea Resp Denies chest congestion, Denies cough, Denies excessive phlegm production, Denies pain on inspiration, Denies pain with cough, Denies dyspnea, Denies dyspnea on exertion, Denies stridor and Denies wheezing Musc Denies myalgias Neuro Reports Normal hearing present and Denies headache(s) Endo Denies excessive sweating Mekhi/Lymph Denies lymphadenopathy Aller/Immun Denies itchy eyes, Denies seasonal rhinorrhea and Denies wheezing Physical Exam Vital Signs: Last Vital Signs Pulse 52 06/22/25 16:01 BP 124/72 06/22/25 16:01 Pulse Ox 96 06/22/25 16:01 Oxygen Delivery Method Room Air 06/22/25 16:01 BMI result Body Mass Index 33.9 Const General: cooperative, healthy appearing, comfortable, no acute distress, well developed and alert Nutritional Appearance: obese Orientation/consciousness: patient oriented x3 Limitations: no limitations HEENT Head: Yes normal to inspection, Yes normocephalic and Yes atraumatic Ears: hearing grossly normal bilaterally and external ears normal Eyes General: appearance normal, both eyes and all related structures Eyelids: Yes eyelids normal Sclerae: sclerae normal EOM: EOMs intact bilaterally Neck Neck: Yes normal visual inspection and Yes no lymphadenopathy Lymphatic: no lymphadenopathy noted Chest Chest palpation & inspection: normal inspection of the chest Resp Effort & Inspection: normal respiratory effort, able to speak in complete sentences, no audible wheezes, no cough, no stridor, not tachypneic, no tripod positioning and no use of accessory muscles Auscultation: clear to auscultation bilaterally Cardio Jugular venous distension: no JVD Rate: regular rate Rhythm: regular rhythm Skin Other: warm, dry General skin exam: no rashes or lesions noted Neuro General: patient oriented x3 Cranial nerves: Yes Normal hearing present Cognition (Neuro): normal cognition Gait exam (Neuro): Normal gait present Extrem General: Yes normal to inspection, Yes capillary refill normal, Yes no clubbing, cyanosis or edema and Yes no pedal edema Psych Appearance: grossly normal and well kempt Speech and movement: Normal speech and movement present and Clear speech present Affect: normal affect Attitude: cooperative Thought process: Normal thought process present Thought content: Normal thought content present Insight: Good insight present (Psych) Judgement: Good judgement present (Psych) Assessment & Plan Assessment & Plan (1) Obstructive sleep apnea: Code(s): G47.33 - Obstructive sleep apnea (adult) (pediatric) Category: Medical Plan Reviewed compliance report for the last three months which revealed usage with >4 hours 76%, notable leaking and AHI of 0.3. He attributes the leaking to significant movement, adjusts masks and reports resolution of leaking. Encouraged to trial an alternative mask however he feels this mask is most comfortable. Overall he reports benefit from CPAP use and is motivated to continue to use. He is aware if he continues to have issues to call the office/[facility]. All questions were answered and patient is in agreement of plan. Will follow up in 6-12 months or sooner if needed. Coding Level of Care Code Est Pt Level 4 (42830) Diagnoses Obstructive sleep apnea G47.33
[2025-06-22 16:01] VITALS: BP 124/72; PULSE 52; O2SAT 96; BMI 33.9
--- OUTSIDE RECORDS SUMMARY | 2025-06-22 18:14 | XMS_ITS | Clinical Summary ---
Author Organization [employer] [facility] it Address [address] [place] [address] Care Team Providers Care Credit Counselor Name Role Phone Roxanne Arredondo MD Primary [...] age to complete this topic Care Teams Credit Counselor Relationship Specialty Start Date End Date Roxanne Arredondo MD PCP - General 08/11/1999
--- OUTSIDE RECORDS SUMMARY | 2025-06-22 18:15 | XMS_ITS | Data Portability ---
Author Organization [facility] [address] Address [address] [place] [address] Assessment No assessment recorded. Plan of Treatment [...] By Organization Details Last Modified Time 07/09/2023 [id number] This physical does not replace the annual [...] Diagnosis SNOMED-CT Code Diagnosis ICD10 Code Diagnosis IMO Codes Diagnosis Note [id number] [address] [facility] [address] 07/18/2021 16:01:20 07/18/2021 17:11:12 [id number] [address] [facility] [address] 07/26/2016 12:11:49 07/26/2016 13:18:19 [id number] Zack Corcoran, SUPERVISORY CIVIL ENGINEER [address] [facility] [address] 07/09/2023 15:46:59 07/09/2023 17:13:54 Roofer Helper [employer] license medical examination [id number] Z02.4 Physical examination 588 0005 Z02.4 History an d physical examination, pre-employment [id number] Z02.1 Health Concerns Section Related Observation LastModified by Organization Detai ls LastModified Time None Recorded Concern Status LastModified by Organization Details LastModified Time None Recorded Advance Directives Directive None Recorded Payers Insurance Date Sequence Insurance Name Policy Number Policy Yi Covered Member ID Yi Member ID Guarantor Name 07/09/2023 1 [facility] INDEMNITY PLAN (INDEMNITY) [id number] Eric Najera [id number] Eric Najera 07/09/2023 PAY AT TOS Eric GARCIAKINS [employer] Eric Najera 07/09/2023 OC-PAY AT TIME OF SERVICE 2022 Eric Najera [employer] Eric Najera Notes Date Note Type Note Provider Name and Address Organization Details Recorded Time 07/09/2023 text/html PhysicalReported by Patient Zack Corcoran NP [address] [place], [address], [place] - [facility] 07/09/2023 17:00:23
== END 2025-06-22 16:25 | disposition home or self-care (01) ==
LOC: HO.HPSW 15:58
PROVIDERS: PCP Internal Medicine; Visit Provider Nurse Practitioner Family
DX: G47.33 Obstructive sleep apnea (adult) (pediatric) (principal)
CPT/HCPCS: 99214

== ENCOUNTER 2025-07-11 13:28 | Outpatient (AMB) | payer OTHER, SELFPAY ==
[2025-07-11 13:31] VITALS: BP 124/80; PULSE 73; BMI 32.9
--- NOTE | 2025-07-11 13:31 | A.OFFVIS_ITS ---
Vital Signs 07/11/25 13:31 Height 5 ft 11 in Weight 235 lb 14.314 oz BMI 32.9 BP 124/80 Blood Pressure Location Lt brachial Pulse 73 Pulse Source Monitor Intake Visit Reasons: 1 year f/u r/s Allergies No Known Allergies Allergy (Verified 06/22/25 16:06) Medication List - Last Reconciled 07/11/25 by Chilo Martinez MD carvedilol (Coreg) 12.5 mg PO BID empagliflozin (Jardiance) 10 mg PO DAILY famotidine 40 mg PO DAILY fluticasone propionate 50 mcg/actuation 1 spray intranasal DAILY metronidazole 1% (Metrogel) 1 ea topical DAILY tadalafil 20 mg PO DAILY PRN valsartan 40 mg PO BID HPI Comments Details: Eric returns for follow-up. He was initially seen in consultation regarding PVCs. Routine EKG had shown PVCs leading to referral. Patient himself does not have any known cardiac issues like coronary disease or myocardial infarction or cardiomyopathy. He really does not have any clear-cut cardiac symptoms either. However, echocardiogram had shown LV dysfunction. He also underwent cardiac catheterization that shows normal coronary arteries. Subsequent only, we had arrange a cardiac MRI as well as refer to EP but it not appear that he keep those appointments. He states that he was made to wait in [facility] for so long and he got upset and left. I am not sure if that is for the MRI appointment or the EP appointment. Any case, he states he is still feels fine. No new complaints. [facility] Medical History Obesity (BMI 30-39.9) Allergic rhinitis GERD without esophagitis Lumbar degenerative disc disease Essential hypertension Muscle strain, hand COVID-19 vaccine series completed Back pain Hypertension Surgical History H/O colonoscopy History of hemorrhoidectomy Family History Father Prostate cancer Mother Diabetes Family/Other Hypertension Diabetes Son No problems noted. Daughter No problems noted. Sister No problems noted. Brother No problems noted. 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 Cognitive needs: No Hearing needs: No Vision needs: No Review of Systems Const Denies weakness ENT Denies dizziness Card Denies chest pain, Denies chest pain with activity, Denies syncope, Denies rapid heart rate, Denies pedal edema, Denies edema, Denies leg edema, Denies lightheadedness, Denies palpitations, Denies dyspnea, Denies dyspnea on exertion and Denies orthopnea Resp Denies cough, Denies dyspnea and Denies dyspnea on exertion GI Denies hematochezia and Denies change in stool character Musc Denies abnormal gait, Denies muscle cramps, Denies muscle weakness, Denies numbness, Denies radiating pain into limb and Denies tingling Neuro Denies abnormal gait, Denies dizziness, Denies syncope, Denies numbness, Denies tingling and Denies weakness Endo Denies palpitations Physical Exam Vital Signs: Last Vital Signs Pulse 73 07/11/25 13:31 BP 124/80 07/11/25 13:31 BMI result Body Mass Index 32.9 Const General: comfortable and no acute distress Orientation/consciousness: patient oriented x3 HEENT Other: Unremarkable Head: Yes normal to inspection Neck Neck: Yes normal visual inspection Chest Chest palpation & inspection: normal inspection of the chest Resp Auscultation: clear to auscultation bilaterally Cardio Palpation: normal PMI Heart sounds: S1 normal heart sound present, S2 normal heart sound present, no gallops, no murmurs and no rubs GI Palpation (GI): Soft to palpation Back/Spine/Pelvis Other: unremarkable Skin General skin exam: no rashes or lesions noted Neuro General: patient oriented x3 Extrem General: Yes normal to inspection Psych Mental Status: mental status grossly normal Office Procedures EKG Details: Sinus rhythm at 73/Min; frequent PVCs; [place]. [id number], Complete Assessment & Plan Assessment & Plan (1) PVC (premature ventricular contraction): Code(s): I49.3 - Ventricular premature depolarization Category: Medical (2) Cardiomyopathy: Code(s): I42.9 - Cardiomyopathy, unspecified Category: Medical Qualifiers: Cardiomyopathy type: unspecified Qualified Code(s): I42.9 - Cardiomyopathy, unspecified (3) Obesity: Code(s): E66.9 - Obesity, unspecified Category: Medical (4) Obstructive sleep apnea: Code(s): G47.33 - Obstructive sleep apnea (adult) (pediatric) Category: Medical Plan Cardiac studies reviewed. In the last echocardiogram from December 2023, LVEF was 30%. Prior to that, 35- 40%. In the cardiac MRI from 09/2024, LVEF is 28%. RVEF 33%. Delayed contrast imaging shows severe intensity late gadolinium enhancement in the basal interventricular septum consistent with nonischemic fibrosis. In the last Holter monitor, frequent PVCs with a burden of 16%. NSVT episodes. Cardiac catheterization shows normal coronary arteries. Essentially, obesity, obstructive sleep apnea on CPAP, cardiomyopathy, frequent PVCs. He has already been seen by EP who recommended going up on the beta-blockers and his carvedilol is currently 12.5 mg b.i.d.. He has also been put on Jardiance. We will recheck another echocardiogram/Holter. If the burden is still high and there is still evidence of cardiomyopathy, then may need PVC ablation through EP. To be decided. He has not appointment with the EP coming up this month and I encouraged him to keep that appointment. Hopefully, we can complete testing before that. Otherwise, clinically he has no evidence of congestive heart failure. Orders: Orders ECG 3 day holter monitor Today I49.3 - Ventricular premature depolarization CA echo transthoracic complete Today I42.9 - Cardiomyopathy, unspecified, I49.3 - Ventricular premature depolarization Coding Level of Care Code Est Pt Level 4 (33569) Complex EM visit Add On G2211 Diagnoses PVC (premature ventricular contraction) I49.3 Cardiomyopathy, unspecified type I42.9 Cardiomyopathy type: unspecified Obesity E66.9 Obstructive sleep apnea G47.33 CPT Codes EKG - CPT: [id number]-[id number], Complete ([id number])
== END 2025-07-11 13:52 | disposition home or self-care (01) ==
LOC: HO.HCS 13:29
PROVIDERS: PCP Internal Medicine; Visit Provider Internal Medicine
DX: I49.3 Ventricular premature depolarization (principal); I42.9 Cardiomyopathy, unspecified; E66.9 Obesity, unspecified; G47.33 Obstructive sleep apnea (adult) (pediatric)
CPT/HCPCS: 93010; 99214

== ENCOUNTER → 2025-07-11 13:28 | Outpatient (BNVA) | payer OTHER, SELFPAY | PROVIDERS: PCP Internal Medicine; Visit Provider Internal Medicine | DX: I49.3 Ventricular premature depolarization (principal) | CPT/HCPCS: 93005 ==

== ENCOUNTER → 2025-07-16 15:03 | Outpatient (REF) | payer OTHER, SELFPAY ==
--- NOTE | 2025-07-16 15:05 | HM_ITS ---
* Total monitoring time 3 days. * Underlying rhythm is sinus with an average rate of 63/Min. * Frequent ventricular ectopy with a burden of 9.3%. Evidence of couplets, rare triplets. Short runs noted, upto 21 beats. Monomorphic. * No significant pauses or high-grade AV blocks. * No diary symptoms. MTDD
--- OUTSIDE RECORDS SUMMARY | 2025-07-16 17:15 | XMS_ITS | Data Portability ---
Author Organization [facility] [address] Address [address] [place] [address] Assessment No assessment recorded. Plan of Treatment [...] By Organization Details Last Modified Time 07/09/2023 [id number] This physical does not replace the annual [...] Recorded Time OC-DOT PHYSICAL completed [facility] [facility] 07/09/2023 16:03:04 Imaging Results None recorded. 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 [id number] Z02.4 Physical examination 588 0005 Z02.4 History an d physical examination, pre-employment [id number] Z02.1 Health Concerns Section Related Observation LastModified by Organization Detai ls LastModified Time None Recorded Concern Status LastModified by Organization Details LastModified Time None Recorded Advance Directives Directive None Recorded Payers Insurance Date Sequence Insurance Name Policy Number Policy Yi Covered Member ID Yi Member ID Guarantor Name 07/09/2023 1 [facility] (INDEMNITY) [id number] Eric Najera [id number] Eric Najera 07/09/2023 PAY AT TOS Eric GARCIAKINS [employer] Eric Najera 07/09/2023 OC-PAY AT TIME OF SERVICE 2022 Eric Najera [employer] Eric Najera Notes Date Note Type Note Provider Name and Address Organization Details Recorded Time 07/09/2023 text/html PhysicalReported by Patient Zack Corcoran NP [address] [place], [address], [place] - [facility] 07/09/2023 17:00:23
--- OUTSIDE RECORDS SUMMARY | 2025-07-16 17:15 | XMS_ITS | Clinical Summary ---
Author Organization [employer] [facility] it Address [address] [place] [address] Care Team Providers Care Cement Truck Loader Name Role Phone Roxanne Arredondo MD Primary [...] Years Used Date Smoking Tobacco: Former Cigarettes 2 Q uit: 09/05/2003 Alcohol Use Standard Drinks/Week [...] age to complete this topic Care Teams Cement Truck Loader Relationship Specialty Start Date End Date Roxanne Arredondo MD PCP - General 08/11/1999
== END ==
LOC: HO.CARD 15:03
PROVIDERS: PCP Internal Medicine; Visit Provider Internal Medicine
DX: I49.3 Ventricular premature depolarization (principal)
CPT/HCPCS: 93242

== ENCOUNTER → 2025-07-16 15:05 | Outpatient (BNV) | payer OTHER, SELFPAY | PROVIDERS: PCP Internal Medicine; Visit Provider Internal Medicine | DX: I49.3 Ventricular premature depolarization (principal) | CPT/HCPCS: 93244 ==

== ENCOUNTER → 2025-07-25 15:52 | Outpatient (REF) | payer OTHER, SELFPAY ==
--- NOTE | 2025-07-25 15:57 | CA_ITS ---
Transthoracic Echocardiogram Patient (Last, First, Middle): Eric Martinez, Gender: Male Date of : 1960 Age: 65 Procedure Date: 07/25/2025 Procedure Type: Transthoracic Echocardiogram Location: OP Height: 180.34 cm Weight: 104.33 kg BSA: 2.24 m2 Heart Rate: bpm BP: 130 / 84 mmHg Food Service Worker Hospital: Referring MD: Chilo Martinez MD Symptoms: I49.3 - Ventricular premature depolarization Study Quality: Good ECG Rhythm: Sinus with extra beats Conclusions: - The left ventricular systolic function is moderately decreased. The calculated ejection fraction is 36% by biplane method. - Evidence suggests grade II (moderate) diastolic dysfunction. - No obvious valvular pathology seen on this study. Findings Left Ventricle Moderately increased left ventricular cavity size. There is mildly increased left ventricular wall thickness. The left ventricular systolic function is moderately decreased. The calculated ejection fraction is 36% by biplane method. There is moderate global hypokinesis. Evidence suggests grade II (moderate) diastolic dysfunction. Right Ventricle Normal right ventricular cavity size and systolic function. Atria The left atrium is mildly dilated. The right atrium is normal in size. Aortic Valve There is a normal trileaflet aortic valve. There is no aortic valve stenosis. There is mild aortic valve regurgitation. Mitral Valve The mitral valve appears normal. There is mild mitral valve regurgitation. There is no mitral valve stenosis. Pulmonic Valve The pulmonic valve is likely normal. Tricuspid Valve There is trace tricuspid valve regurgitation. There is no evidence of pulmonary hypertension. Great Vessels The asc aorta is normal in size. Venous The inferior vena cava is normal in size and collapses greater than 50% with inspiration. Pericardium/Pleural There is no evidence of pericardial effusion. Prior Study Comparison No significant change compared to prior study dated: 12/22/2023. Recommendations, Care & Conclusions No obvious valvular pathology seen on this study. Measurements 2D Linear Measurements IVSd: 1.22 0.6-0.9/0.6-1.0 cm LVIDd: 5.68 3.9-5.3/4.2-5.9 cm LVIDd Index: 2.54 2.4-3.2/2.2-3.1 cm/m2 LVIDs: 4.55 2.0-3.6 cm LVPWd: 1.26 0.7-1.1 cm Ao Root: 3.70 2.1-3.5 cm LA Diam: 4.40 2.7-3.8/3.0-4.0 cm LAIDs Index: 1.96 1.5-2.3 cm/m2 LV Mass: 374.49 67-162/88-224 g LV Mass Index: 167.18 43-95/49-115 g/m2 LVOT Diam: 2.20 3.0+(-)1.3 cm 2D Systolic Function EF 4C: 33.80 >55% EF 2C: 37.10 >55% EF BiP: 35.70 >55% Mitral Valve MV Pk E: 0.78 MV PK A: 0.67 MV Decel Time: 211.00 E/A: 1.20 E'Lateral: 5.77 E'Medial: 6.09 E/E' Med: 12.80 E/E' Lat: 13.50 PHT: 62.00 MVA PHT: 3.55 Decel Young: 3.69 Aortic Valve AoV Pk Twan: 1.11 AoV Mn Twan: 0.84 AoV VTI: 0.26 AoV Pk Grad: 5.00 Aov Mn Grad: 3.00 ANA CRISTINA Cont.VTI: 2.38 AI Pk Twan: 4.96 AI Young: 2.65 LVOT LVOT Pk Twan: 0.78 LVOT Mn Twan: 0.49 LVOT VTI: 0.17 LVOT Pk Grad: 2.00 LVOT Mn Grad: 1.00 LVOT Diam: 2.20 LVOT Area: 3.80 Diastolic Function MV Pk E: 0.78 MV Pk A: 0.67 E/A: 1.20 E'Medial: 6.09 E/E' Med: 12.80 E' Laterial: 5.77 E/E' Lat: 13.50 Right Ventricle TAPSE (mm): 27.00 TVS' Twan: 11.00 Tricuspid Valve TR Pk Twan: 2.74 TR Pk Grad: 30.00 RA Press: 3.00 RVSP: 33.00 Great Vessels Aorta Ao Root-2D: 3.70 2.0-3.7 cm Ao Asc: 3.70 2.1-3.4 cm Pulmonary Valve PV Pk Twan: 0.77 Peak PV Grad: 2.00 Updated in Other Vendor System with Status of Final Chilo Martinez MD electronically signed on 07/26/2025 3:42:20 PM with status of Final
--- OUTSIDE RECORDS SUMMARY | 2025-07-26 04:30 | XMS_ITS | Data Portability ---
Author Organization [facility] [address] Address [address] [place] [address] Assessment No assessment recorded. Plan of Treatment [...] By Organization Details Last Modified Time 07/09/2023 [id number] This physical does not replace the annual [...] ICD10 Code Diagnosis IMO Codes Diagnosis Note [id number] [address] [place] [address] 07/18/2021 16:01:20 07/18/2021 17:11:12 [id number] [address] [place] [address] 07/26/2016 12:11:49 07/26/2016 13:18:19 [id number] Zack Corcoran, ASSOCIATE DIRECTOR CAREER SERVICES [address] [place] [address] 07/09/2023 15:46:59 07/09/2023 17:13:54 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 Pollution Control Engineer license medical 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 [id number] Z02.4 Physical examination 588 0005 Z02.4 History an d physical examination, pre-employment [id number] Z02.1 Health Concerns Section Related Observation LastModified by Organization Detai ls LastModified Time None Recorded Concern Status LastModified by Organization Details LastModified Time None Recorded Advance Directives Directive None Recorded Payers Insurance Date Sequence Insurance Name Policy Number Policy Yi Covered Member ID Yi Member ID Guarantor Name 07/09/2023 1 [facility] INDEMNITY PLAN (INDEMNITY) [id number] Eric Najera [id number] Eric Najera 07/09/2023 PAY AT TOS Eric GARCIAKINS [employer] Eric Najera 07/09/2023 OC-PAY AT TIME OF SERVICE 2022 Eric Najera [employer] Eric Najera Notes Date Note Type Note Provider Name and Address Organization Details Recorded Time 07/09/2023 text/html PhysicalReported by Patient Zack Corcoran NP [address] [place], [address], [place] - [facility] 07/09/2023 17:00:23
== END ==
LOC: HO.CARD 15:52
PROVIDERS: PCP Internal Medicine; Visit Provider Internal Medicine
DX: I49.3 Ventricular premature depolarization (principal); I42.9 Cardiomyopathy, unspecified
CPT/HCPCS: 93306

== ENCOUNTER → 2025-07-25 15:57 | Outpatient (BNV) | payer OTHER, SELFPAY | PROVIDERS: PCP Internal Medicine; Visit Provider Internal Medicine | DX: I51.89 Other ill-defined heart diseases (principal); R94.31 Abnormal electrocardiogram [ECG] [EKG] | CPT/HCPCS: 93306 ==